=== PATIENT | female | born 1965 | race Caucasian/White ===

== ENCOUNTER → 2017-04-25 14:57 | Outpatient (CLI) | payer MEDICARE, MEDICAID, SELFPAY ==
[2017-04-25 15:54] LABS: Anion Gap 9 (5-15); BUN 9 mg/dL (7-18); BUN/Creat Ratio 13.8 RATIO (10-20); Chloride 103 mmol/L (98-107); Creatinine, Serum 0.65 mg/dL (0.55-1.02); EST Glomerular Filtration Rate 101 mL/min (>60); Est Glom Filt Rate - Afr Amer 123 mL/min (>60); Glucose 86 mg/dL (70-110); Potassium 4.2 mmol/L (3.5-5.1); Sodium Level 138 mmol/L (136-145)
== END ==
PROVIDERS: Family Provider Family Medicine; PCP Family Medicine; Visit Provider Family Medicine
DX: E87.0 Hyperosmolality and hypernatremia (principal)
CPT/HCPCS: 36415; 80048

== ENCOUNTER → 2018-03-03 09:20 | Outpatient (CLI) | payer MEDICARE, MEDICAID, SELFPAY ==
--- NOTE | 2018-03-03 | IMM_PTH ---
PATIENT: JOVANNI BENITO LOC: [facility] U#:[id number] AGE/SX: 59/F ROOM: RE03/03/[address]: Dr. Daryl Wu MD : 1965 BED: DIS: SPEC #: [id number] RECD: 03/04/18 10:16 STATUS: JOHNNA TIFFANIE #: [id number] JOSEPH: 03/03/18 00:[address]: Daryl Wu DEPT: IMMUNOHISTOCHEMISTRY RECD BY: Mildred Johnson ENTERED: 03/04/18 10:18 SP TYPE: IMMUNO OTHR DR: Dr. Zachery Ruffin MD Tissues: Lymph node of neck, NOS Procedures: CD20 (add) CD45 (add) CD5 (add) CD79A (add) CD3 (initial) PHYSICIAN & INSTITUTION [place] [id number] SPECIMEN INFORMATION: Tissue Source: Right neck lymph node, FNA Clinical Info: Right neck mass Specimen Number: [id number] CPT code: 36071, 89048 x4 METHODOLOGY: Deparaffinized sections of prefer/formalin-fixed tissue or PAP/DQ stained slides are incubated with monoclonal/polyclonal antibodies/oligonucleotide probes. Localization is made via biotin free immunoperoxidase method. Appropriate controls are performed and reacted as expected. Results on target cell population are indicated in the following table: RESULTS: ANTIBODY / CLONE RESULT CD3 (PS1) positive CD5 (SP10) positive CD20 (L26) positive CD45 (RP2/18) positive CD79a (11E3) positive These tests were developed and their performance characteristics determined by [facility]. They may not have been cleared or approved by the U.S. Food and Drug Administration. The FDA has determined that such clearance or approval is not necessary. INTERPRETATION: Right neck lymph node, FNA: Polytypic lymphoid cells. AM:jarrett 03/05/18
--- NOTE | 2018-03-03 | ASPOS_PTH ---
PATIENT: JOVANNI BENITO LOC: [facility] U#:[id number] AGE/SX: 59/F ROOM: RE03/03/[address]: Dr. Daryl Wu MD : 1965 BED: DIS: SPEC #: [id number] RECD: 03/03/18 11:58 STATUS: JOHNNA MORENO #: [id number] JOSEPH: 03/03/18 00:[address]: Daryl Wu DEPT: CYTOLOGY RECD BY: Nash Ceron ENTERED: 03/03/18 12:00 SP TYPE: ASP HERE OTHR DR: Dr. Zachery Ruffin MD Tissues: Neck, NOS Procedures: Pap Stain (control) Special Stain Group II Surgery Specimen Level IV Diff Quik Stain (control) Cell Block Cytology Other Fine Needle Asp on Site HEADER OPERATION: FNA right neck lymph node PRE-OP DIAGNOSIS: Right neck mass TISSUE SUBMITTED: FNA right neck mass, smear and fluid for cell block and cytology, flow sample DIAGNOSIS CYTOLOGY Fine needle aspiration, right neck mass ( smears and cell block): Polymorphous lymphocytes present. No evidence of lymphoproliferative disorder. COMMENT The specimen is evaluated at the time of FNA by Dr. Jacobo. Immediate Evaluation = Polymorphous lymphocytes present. Immunohistochemistry ([id number]) supports the above diagnosis. FLOW analysis of aspirate material does not reveal a lymphoproliferative disorder. Complete FLOW analysis report is viewable in patient's EMR. CYTOLOGY STUDY Slides are reviewed. CYTOLOGY GROSS Received is 0.2 ml of reddish fluid labeled with the patient's name, and designated right neck. Two imprints and one pap are made from the submitted fluid and the rest is added to CytoLyt for cell block preparation. Submitted for cytology study. / AM:jarrett 03/03/18 TC: CPT:
== END ==
PROVIDERS: Family Provider Family Medicine; PCP Family Medicine; Referring Provider Otolaryngology; Visit Provider Otolaryngology
DX: R22.1 Localized swelling, mass and lump, neck (principal)
CPT/HCPCS: 10021; 88161; 88305; 88313; 88341; 88342

== ENCOUNTER → 2018-03-04 15:10 | Outpatient (CLI) | payer MEDICARE, MEDICAID, SELFPAY ==
[2015-07-01 15:38] VITALS: BMI 19.0
--- NOTE | 2018-03-04 15:12 | CT_ITS ---
STUDY: CT SOFT TISSUE NECK WITH CONTRAST REASON FOR EXAM: Female, 52 years old. Right-sided neck mass RADIATION DOSAGE (If Supplied By Facility): CTDIvol = ( 10.63 ) mGy, DLP = ( 302.56 ) mGycm TECHNIQUE: The patient was scanned in a multi-detector CT scanner. High resolution transaxial imaging was performed following intravenous administration of 100CC ml of Isovue 300 contrast material. Sagittal and coronal images were reconstructed. Individualized dose optimization techniques were used for this CT. COMPARISON: None. FINDINGS: SUPRAHYOID HEAD AND NECK PNEUMATIC TOOL REPAIRER SPACE (INCLUDING SUPRAZYGOMATIC PORTION): Normal with no evidence of an accessory parotid lobe. No calcification in parotid duct. PARAPHARYNGEAL SPACE: Normal and symmetric. No evidence of asymmetric pterygoid plexus. RETROPHARYNGEAL SPACE: Normal with no enlarged nodes of [place] laterally CAROTID SPACE: Normal PERIVERTEBRAL SPACE: The prevertebral and paraspinal components are normal. PAROTID SPACE: Negative PHARYNGEAL MUCOSAL SPACE: The nasopharyngeal and oropharyngeal spaces including the tongue base are normal with no tonsillitis, adenoidal hypertrophy or any neoplastic processes. ORAL CAVITY : The mucosal surfaces including the anterior two thirds of the tongue and the submandibular and sublingual spaces are normal INFRAHYOID HEAD AND NECK: VISCERAL SPACE: The thyroid, trachea, esophagus, larynx and hypopharynx are normal. THE CAROTID, RETROPHARYNGEAL, PERIVERTEBRAL and POSTERIOR CERVICAL SPACES (Containing The Spinal Accessory Lymph Nodes): Normal . ORBITS AND PARANASAL SINUSES: Negative CERVICAL LYMPH NODES: There is a 1.6 x 0.6 cm right-sided level 6 lymph node located directly posterior to the sternocleidomastoid muscle. No levels 1 through 5 lymph nodes are seen. . CT/Soft Tissue Neck WITH Contrast IMPRESSION: The kings on the right neck correlates with a 1.6 x 0.6 cm right-sided level 6 lymph node. There are no abnormal masses in the various spaces in the head and neck region Electronically Signed: Ariel Wells MD at 4:33 EST Tel , Service support ,
== END ==
PROVIDERS: Family Provider Family Medicine; PCP Family Medicine; Referring Provider Otolaryngology; Visit Provider Otolaryngology
DX: R22.1 Localized swelling, mass and lump, neck (principal)
CPT/HCPCS: 70491; Q9967

== ENCOUNTER → 2018-04-02 12:16 | Outpatient (CLI) | payer MEDICARE, MEDICAID, SELFPAY ==
[2015-07-01 15:38] VITALS: BMI 19.0
== END ==
PROVIDERS: Family Provider Family Medicine; PCP Family Medicine; Referring Provider Family Medicine; Visit Provider Family Medicine
DX: Z12.11 Encounter for screening for malignant neoplasm of colon (principal)
CPT/HCPCS: 82274

== ENCOUNTER 2018-12-03 22:59 | Emergency (ER) | payer MEDICARE, MEDICAID, SELFPAY ==
[2018-12-03 23:00] VITALS: BP 120/69; PULSE 85; RESP 16; TEMP 36.7; O2SAT 98; BMI 20.8
--- NOTE | 2018-12-03 23:08 | EKG12_ITS ---
Test Reason : FLANK PAIN Blood Pressure : / mmHG Vent. Rate : 076 BPM Atrial Rate : 076 BPM P-R Int : 150 ms QRS Dur : 084 ms QT Int : 384 ms P-R-T Axes : 085 057 077 degrees QTc Int : 432 ms Normal sinus rhythm Normal ECG Confirmed by GREY SALES ([id number]), supervising film or videotape editor XU HARVEY ([id number]) on 12/07/2018 2:34:00 PM Referred By: EMMA Confirmed By:GREY SALES
--- NOTE | 2018-12-03 23:09 | ED.DCSUM_ITS ---
History of Present Illness Chief Complaint: Flank Pain Informant: Patient, Significant Other Onset: Today Context: Sudden Onset Timing: Continuous Quality: Pain with pleuritic component Location: Right breast to posterior axillary line Current Severity: Moderate Maximum Severity: Severe Worsened by: Movement and breathing Relieved by: Nothing Associated Symptoms: Shortness of breath Narrative: Patient is a 53-year-old woman with history of COPD who smokes 1 pack/day. She presents with acute onset of right-sided chest pain while sitting on her bed. She denies history of PE or DVT. She denies leg pain, swelling or discoloration. Denies history of cancer. She denies intolerance to any types of food. She believes there is a family history of cholelithiasis. She denies history of renal ureterolithiasis. She denies cough. She denies history of trauma and has not noted a rash. She denies nausea, vomiting or diarrhea. She denies dysuria, frequency, urgency or hematuria. Prior similar symptoms: No Recent Illness/Hospitalization: No - Past Medical History (1) Bicuspid aortic valve Status: Chronic (2) Chronic obstructive lung disease Status: Chronic Past Medical History - Allergies and Home Meds Allergies/Adverse Reactions: Allergies No Known Allergies Allergy (Verified 12/03/18 23:02) Primary Care Physician: Zachery Ruffin MD [Primary Care Provider] - Prior records reviewed: Yes Surgical History: ligation, broken arm left, repair while she was a kid Lives: Spouse/ Significant Other Smoking Status: Current every day smoker Alcohol: Rare Drugs: None Review of Systems General: Denies: Chills, Fever, Sweats Eyes: Denies: Visual changes - bilaterally, Diplopia ENT: Denies: Rhinorrhea, Sore throat Cardiovascular: Reports: Chest pain. Denies: Palpitations, Heart racing Respiratory: Reports: Dyspnea. Denies: Cough, Sputum, Dyspnea on exertion, Orthopnea, Paroxysmal nocturnal dyspnea, -, - Gastrointestinal: Denies: Abdominal pain, Nausea, Vomiting, Diarrhea, Melena, Hematochezia Genitourinary: Denies: Dysuria, Hematuria, Frequency Musculoskeletal: Reports: Back pain. Denies: Myalgias, Arthralgias, Neck pain, Swelling, Extremity Pain Skin: Denies: Rash, Wounds Neurological: Denies: Headache, Weakness, Numbness Hematologic: Denies: Easy bruising, Easy bleeding Allergy: Denies: Uticaria, Swelling of the mouth, Swelling of the tongue Physical Exam Vital Signs/Narrative: Vital Signs Temp Pulse Resp BP Pulse Ox 12/03/18 23:00 98.0 F 85 16 120/69 98 Inital Vital Signs reviewed: Yes General: Well nourished, Well developed, Acute Distress Head: Normocephalic, Atraumatic Eyes: Perrl, EOMI. Negative for: Pale conjunctiva, Scleral icterus ENT: Moist mucous membranes, No rhinorrhea Neck: Supple, Nontender, No lymphadenopathy, No JVD Cardiovascular: Regular rate, Regular rhythm, No murmurs, Normal S1, Normal S2 Respiratory: CTA bilaterally, Chest nontender, Decreased Air Movement - On the right side and splinting with deep breaths Abdomen: Soft, Nontender, Nondistended, Normal bowel sounds, No masses Back: Nontender, Normal Inspection Extremities: Nontender, No edema, - - There is no asymmetry, swelling, discoloration, leg vein distention, palpable cords or tenderness along the distribution of the deep venous system. Skin: Normal color, No rash, No Trauma. Negative for: Cyanosis, Diaphoresis, Jaundice Neurological: Alert, Oriented x3, Cranial nerves II-XII grossly intact, Normal Strength, Normal Sensation Psychological: Normal affect, Normal Mood Diagnostic/Tx/Re-eval Chest X-Ray - ED: 2 View, Read by ED Physician, Normal, Heart, Mediastinum, Bony Structures, No Acute Disease, Chronic Changes, - - There is no evidence of p neumothorax, effusion or findings to explain patient's symptoms. 12/03/18 23:08 Chest PA and Lateral [RAD] Stat Laboratory Results 12/03/18 12/03/18 12/03/18 23:15 23:15 23:15 WBC 12.8 H RBC 4.28 Hgb 13.3 Hct 38.4 MCV 89.7 MCH 31.1 MCHC 34.6 RDW Std Deviation 39.8 RDW Coeff of Mo 12.1 Plt Count 250 MPV 10.2 Immature Gran % (Auto) 0.300 Neut % (Auto) 63.1 Lymph % (Auto) 26.1 [place] % (Auto) 5.3 Eos % (Auto) 4.7 Baso % (Auto) 0.5 Absolute Neuts (auto) 8.1 H Absolute Lymphs (auto) 3.34 Nucleated RBC % 0 D-Dimer Quant (PE/DVT) 0.48 Sodium 142 Potassium 4.0 Chloride 110 H Carbon Dioxide 28.0 Anion Gap 4 L BUN 17 Creatinine 0.73 Estim Creat Clear Calc 70.49 Est GFR (MDRD) Af Amer 108 Est GFR (MDRD) Non-Af 89 BUN/Creatinine Ratio 23.4 H Glucose 102 Calcium 8.9 Total Bilirubin 0.30 AST 9 L ALT 15 Alkaline Phosphatase 80 Total Protein 7.5 Albumin 3.9 Globulin 3.6 Albumin/Globulin Ratio 1.1 White count is elevated. Chest x-ray reveals no evidence of pneumonia or pneum othorax. D-dimer is normal. Comprehensive metabolic panel is essentially unremarkable. Will reevaluate and determine if patient needs any other pain medicine and specifically for pleurisy. - Rhythm Strip Rhythm Strip: Sinus Rhythm Rate: 82 Ectopy: None - EKG Initial EKG Interpretation: Sinus Rhythm - Ventricular rate is 76. WI interval is 150 ms. QS duration is 84 ms. QT duration is 384 ms. [place] is normal. The EKG is normal. - Medical Decision Making With abrupt onset of pleuritic chest pain shortness of breath one needs entertained possibility of pulmonary embolus. Since she has decreased breath sounds on the right chest x-ray was obtained to evaluate for evidence of spontaneous pneumothorax. Abdomen was soft nontender with a negative Medel sign. Since there is a family history of cholelithiasis CMP was ordered to include hepatic enzymes. BUN and creatinine were obtained to assess renal function in the event that a CTA is needed. UA is nondiagnostic. There is 5-10 epithelial cells. Trace blood and leukoesterase on macro. There is 5-10 WBCs and 1+ bacteria. With patient not having urinary symptoms and complaining of chest pain suspect she has pleurisy. Since d-dimer is normal with no prior history of DVT no further work-up was indicated. ED Disposition - Plan for ED Patient: Disposition: Home or Assisted Living Diagnosis: Pleuritic chest pain Instructions: Pleurisy Prescriptions: Naproxen [Naprosyn] 500 mg PO BID #14 tab Prescription Printed Referrals: Zachery Ruffin MD [Primary Care Provider] - 3-5 Days if not improving
[2018-12-03] MEDS: Ondansetron 4 MG/2 ML Vial IV (23:18)
[2018-12-03] MEDS: Morphine 4 MG/ML Syringe IV (23:18)
[2018-12-03 23:22] LABS: Absolute Lymphocyte Count 3.34 X10^3/uL (0.83-4.51); Absolute Neutrophil Count 8.1 X10^3/uL (2.0-7.7); Basophil# 0.07 X10^3/uL; Basophil% 0.5 % (0-1); Eosinophils% 4.7 % (0-5); Hematocrit 38.4 % (37-47); Hemoglobin 13.3 g/dL (12.0-15.0); Lymphocyte # 3.34 X10^3/ul (4.0); Lymphocyte % 26.1 % (19-41); Mean Corp Hgb Conc 34.6 g/dL (32-36); Mean Corpuscular Hgb 31.1 pg (27.0-32.0); Mean Corpuscular Volume 89.7 fL (81-99); Mean Platelet Vol. 10.2 fl (6.2-12.0); Monocyte# 0.68 X10^3/uL; Monocyte% 5.3 % (0-10); NRBC Flagged by Analyzer 0 % (0-5); Neutrophil # 8.05 X10^3/uL (2.7-7.7); Neutrophil % 63.1 % (47-70); Platelet Count 250 K/mm3 (150-450); RBC Distribution Width CV 12.1 % (11.6-14.6); RBC Distribution Width SD 39.8 fl (35.1-43.9); Red Blood Count 4.28 M/mm3 (4.2-5.4); White Blood Count 12.8 K/mm3 (4.4-11.0)
[2018-12-03 23:35] LABS: D-Dimer Quantitative (DVT/PE) 0.48 FEU/ug/m (0.27-0.49)
[2018-12-03 23:36] LABS: ALB/GLOB Ratio 1.1 RATIO (0.9-2.4); AST(SGOT) 9 U/L (15-37); Alanine Aminotransfer ALT/SGPT 15 U/L (13-56); Albumin, Serum 3.9 g/dL (3.2-5.0); Alkaline Phosphatase 80 U/L (45-117); Anion Gap 4 (5-15); BUN 17 mg/dL (7-18); BUN/Creat Ratio 23.4 RATIO (10-20); Calcium,Total 8.9 mg/dL (8.5-10.1); Chloride 110 mmol/L (98-107); Creatinine, Serum 0.73 mg/dL (0.55-1.02); EST Glomerular Filtration Rate 89 mL/min (>60); Est Glom Filt Rate - Afr Amer 108 mL/min (>60); Estimated Creatinine Clearance 70.49 ml/min; Globulin 3.6 g/dL (2.2-4.2); Glucose 102 mg/dL (74-106); Protein, Total 7.5 g/dL (6.4-8.2); Sodium Level 142 mmol/L (136-145)
--- NOTE | 2018-12-03 23:38 | RAD_ITS ---
HISTORY:PT HAS BEEN COUGHING LAST COUPLE OF DAYS AND NOW SUDDENLY HAS R BREAST/FLANK PAIN. HX COPD PT HAS BEEN COUGHING LAST COUPLE OF DAYS AND NOW SUDDENLY HAS R BREAST/FLANK PAIN. HX COPD EXAM: XR Chest 2 Views: COMPARISON: None FINDINGS: # of images incl. paperwork: 2 LINES/DEVICES: None. LUNGS: Radiographically clear. No consolidation, edema or effusion. No pneumothorax. MEDIASTINUM AND CARDIOVASCULAR STRUCTURES: Cardiac silhouette not enlarged. BONES AND SOFT TISSUES: Unremarkable. RAD/Chest PA and Lateral IMPRESSION: No radiographic evidence of acute cardiopulmonary disease. at [id number] Reported and signed by: Mindi Aaron DO Electronically Signed: Mindi Aaron DO at 23:56 EDT Tel , Service support ,
[2018-12-03] MEDS: Ketorolac 15 MG/ML Vial IV (23:59)
[2018-12-04 00:11] LABS: Color, Urine Yellow (Yellow); Glucose, Dipstick Normal (Normal); Ketone-Dipstick 5 mg/dl (Negative); Leukocyte Esterase-Dipstick 100 /ul (Negative); Nitrite-Dipstick Negative (Negative); Occult Blood-Urine 10 /ul (Negative); Protein-Dipstick Negative (Negative); Specific Gravity, Urine 1.015 (1.002-1.030); Urine Bilirubin Dipstick Negative (Negative); Urine Clarity Sl. Cloudy (Clear); Urine Urobilinogen 4 mg/dl (Normal)
[2018-12-04 00:16] LABS: Bacteria 1+ /hpf (None Seen); Mucous, Urine 2+ /hpf (<or=2+)
[2018-12-04 00:17] LABS: White Blood Cells 5-10 SEEN /hpf (0-5)
[2018-12-04 00:18] LABS: Red Blood Cells-Urine 0-5 SEEN /hpf (0-5)
[2018-12-04 00:19] LABS: Squamous Epithelial Cells - UA 5-10 SEEN /hpf (5-10)
[2018-12-04 01:03] VITALS: BP 100/72; PULSE 67; RESP 18; O2SAT 96
[2018-12-04 01:23] VITALS: BP 112/68; PULSE 79; RESP 18; O2SAT 97
--- NOTE | 2018-12-04 01:24 | ED.RN ---
THIS NURSE REVIEWED D/C INSTRUCTION WITH PT. PT VERBALIZED UNDERSTANDING OF INSTRUCTIONS. IV D/C. IV CATHETER INTACT. PT TOLERATED WELL. PT DENIES FURTHER NEEDS OR QUESTIONS AT THIS TIME. PT AMBULATES FROM ROOM ON OWN WITHOUT ASSISTANCE FROM STAFF
== END 2018-12-04 01:26 | disposition home or self-care (01) ==
PROVIDERS: Emergency Provider Emergency Medicine; Family Provider Family Medicine; PCP Family Medicine
DX: R07.81 Pleurodynia (principal); J44.9 Chronic obstructive pulmonary disease, unspecified; F17.210 Nicotine dependence, cigarettes, uncomplicated
CPT/HCPCS: 71046; 80053; 81001; 85025; 85379; 93005; 96361; 96374; 96375; 99284; J7030; A4216; J2405

== ENCOUNTER 2021-08-02 15:54 | Emergency (ER) | payer MEDICARE, MEDICAID, SELFPAY ==
[2021-08-02 15:55] VITALS: BP 139/82; PULSE 102; RESP 16; TEMP 35.7; O2SAT 97; BMI 21.5
[2021-08-02 15:57] VITALS: BP 139/82; PULSE 102; RESP 16; TEMP 35.7; O2SAT 97
--- NOTE | 2021-08-02 16:28 | EDS_ITS ---
HPI History of Present Illness Chief Complaint: Nausea/Vomiting Informant: patient Narrative Narrative: 55-year-old female presenting to the emergency room with a chief complaint of nausea and vomiting. Patient states this has been present for 3 days. She notes no abdominal pain. She notes normal bowel movements. No reported fevers. No change in breathing or chronic cough. No bad food exposures or recent antibiotics. She states that she has not had any sick contacts. No rashes. [facility] Medical History (Updated 08/02/21 @ 18:[address] Jason Alonzo DO) Bicuspid aortic valve Chronic obstructive lung disease Home Medications albuterol sulfate 2.5 mg INHALATION Q4HWA.RT 07/01/15 [History Last Taken Unknown] albuterol sulfate [Ventolin Hfa (SP)] 1 - 2 puff INHALATION Q4H PRN PRN 07/01/15 [History Last Taken Unknown] tiotropium bromide [Spiriva 18 MCG] 1 puff INHALATION DAILY 07/01/15 [History Last Taken Unknown] gabapentin 300 mg PO QHS 12/03/18 [History Last Taken Unknown] naproxen 500 mg PO BID #14 tab 12/04/18 [Rx Last Taken Unknown] ondansetron 4 mg PO Q6H PRN PRN #15 tab 08/02/21 [Rx Last Taken Unknown] Allergy/AdvReac Type Severity Reaction Status Date / Time No Known Allergies Allergy Verified 08/02/21 15:57 Social History (Updated 08/02/21 @ 16:[address] Jason Alonzo DO) current gender identity: female Smoking Status: Current every day smoker ROS ROS ED Constitutional Constitutional ED: Denies chills or weight loss Eyes Eyes: Denies change in vision or diplopia ENT ENT ED: Denies ear pain, rhinorrhea or sore throat Cardiovascular Cardiovascular: Denies chest pain, orthopnea, palpitations or racing heartbeat Respiratory/Chest Respiratory/Chest: Reports cough and sputum; Denies dyspnea or orthopnea Gastrointestinal Gastrointestinal: Reports nausea and vomiting; Denies abdominal pain or diarrhea Genitourinary Genitourinary ED: Denies dysuria, hematuria or urinary frequency Musculoskeletal Musculoskeletal: Denies arthralgias or myalgias Integumentary Denies abscess or rash Neurologic Neurologic: Denies headache(s) or weakness Psychiatric Psychiatric: Denies anxiety, depression, suicidal ideation or suicidal thoughts Endocrine Endocrinology: Denies polydipsia, polyphagia or polyuria Allergic/Immunologic Allergic/Immunologic ED: Denies mouth swelling, tongue swelling or urticaria EXAM Physical Exam Const Vital Signs: 08/02/21 15:55 08/02/21 15:57 Temperature 96.3 F L 96.3 F L Temperature Source Temporal Temporal Pulse Rate 102 H 102 H Respiratory Rate 16 16 Blood Pressure 139/82 H 139/82 H Blood Pressure Mean 101 101 Pulse Ox 97 97 Oxygen Delivery Method Room Air Room Air Positive well nourished and well developed General Appearance ED: well developed HEENT Reports normocephalic, head/scalp atraumatic, TM's clear and moist mucous membranes Negative for trauma Tympanic Membrane ED: Yes TM's clear Eyes PERRL and EOMs intact bilaterally Neck no lymphadenopathy, supple and no JVD Resp normal respiratory effort and clear to auscultation bilaterally Cardio regular rate and no murmurs Rate: tachycardic GI normal to inspection, nondistended, normoactive bowel sounds and non-tender Palpation: soft Back/Spine no CVA tenderness and normal ROM Extremity normal to inspection General Extremety ED: Negative for edema General Extremity: Negative for edema Neuro oriented x3 and CN's II-XII intact bilaterally Sensorium / Orientation: alert Motor Exam: strength 5/5 throughout Psych mental status grossly normal Mood & Affect: Negative for depressed or tearful Skin no rashes or lesions noted and no wounds MDM MDM MDM Narrative Medical decision making narrative: Basic blood work was obtained. This showed a normal white blood cell count 7.5. Creatinine 0.69 with a BUN of 17. Potassium 3.1. Urinalysis was slightly concentrated. Patient received Zofran and IV fluids. Patient be discharged home with a prescription for Zofran. I think is most likely a viral illness. Lab Data Attestation: I reviewed the patient's lab results. Labs: Laboratory Results - last 24 hr 08/02/21 08/02/21 08/02/21 16:35 16:35 17:15 WBC 7.5 RBC 4.50 Hgb 13.5 Hct 40.6 MCV 90.2 MCH 30.0 MCHC 33.3 RDW Std Deviation 40.3 RDW Coeff of Mo 12.2 Plt Count 192 MPV 9.9 Immature Gran % (Auto) 0.300 Neut % (Auto) 62.2 Lymph % (Auto) 27.8 [place] % (Auto) 8.6 Eos % (Auto) 0.8 Baso % (Auto) 0.3 Absolute Neuts (auto) 4.7 Absolute Lymphs (auto) 2.09 Nucleated RBC % 0 Sodium 138 Potassium 3.1 L Chloride 108 H Carbon Dioxide 26.0 Anion Gap 4 L BUN 17 Creatinine 0.69 Estim Creat Clear Calc 72.86 Est GFR (MDRD) Af Amer 114 Est GFR (MDRD) Non-Af 94 BUN/Creatinine Ratio 24.7 H Glucose 124 H Calcium 8.7 Total Bilirubin 0.20 AST 28 ALT 28 Alkaline Phosphatase 68 Total Protein 7.2 Albumin 3.6 Globulin 3.6 Albumin/Globulin Ratio 1.0 Lipase 108 Urine Color Yellow Urine Clarity Clear Urine pH 6.0 Ur Specific [place] 1.025 Urine Protein 30 H Urine Glucose (UA) Normal Urine Ketones 5 H Urine Occult Blood 25 H Urine Nitrite Negative Urine Bilirubin Negative Urine Urobilinogen 1 H Ur Leukocyte Esterase 25 H Urine RBC 0 SEEN Urine WBC 0-5 SEEN Ur Squamous Epith Cells 0 SEEN Urine Bacteria RARE Urine Mucus 0 SEEN Discharge Plan Triage Chief Complaint: Nausea/Vomiting ED Provider: Jason Alonzo Dx/Rx/DC Orders Clinical Impression: Vomiting, Acute dehydration Instructions: ED Vomiting (Adult) Prescriptions: New ondansetron [ondansetron] 4 MG tablet 4 mg PO Q6H PRN PRN (Reason: Nausea) Qty: 15 RF: 0 No Action albuterol sulfate 2.5 MG/3 ML solution for nebulization 2.5 mg inhalation Q4HWA.RT RF: 0 albuterol sulfate [Ventolin HFA] 1 INHALER inhaler 1 - 2 puff inhalation Q4H PRN PRN (Reason: Sob &/Or Wheezing) RF: 0 tiotropium bromide [Spiriva with HandiHaler] 1 PUFF inhaler 1 puff inhalation DAILY RF: 0 gabapentin 400 MG capsule 300 mg PO QHS RF: 0 naproxen 500 MG tablet 500 mg PO BID Qty: 14 RF: 0 Primary Care Provider: Zachery Ruffin Referrals: Zachery Ruffin MD [Primary Care Provider] - As Needed Disposition Disposition: Home, Self Care
[2021-08-02] MEDS: Ondansetron 4 MG/2 ML Vial IV (16:39)
[2021-08-02] MEDS: 0.9% Normal Saline 1,000 ML 1000 ML IV (16:39)
[2021-08-02 16:46] LABS: Absolute Lymphocyte Count 2.09 X10^3/uL (0.83-4.51); Absolute Neutrophil Count 4.7 X10^3/uL (2.0-7.7); Basophil# 0.02 X10^3/uL; Basophil% 0.3 % (0-1); Eosinophil# 0.06 X10^3/uL; Eosinophils% 0.8 % (0-5); Hematocrit 40.6 % (37-47); Hemoglobin 13.5 g/dL (12.0-15.0); Lymphocyte # 2.09 X10^3/ul (0.83-4.51); Lymphocyte % 27.8 % (19-41); Mean Corp Hgb Conc 33.3 g/dL (32-36); Mean Corpuscular Volume 90.2 fL (81-99); Mean Platelet Vol. 9.9 fl (6.2-12.0); Monocyte# 0.65 X10^3/uL; Monocyte% 8.6 % (0-10); NRBC Flagged by Analyzer 0 % (0-5); Neutrophil # 4.69 X10^3/uL (2.7-7.7); Neutrophil % 62.2 % (47-70); Platelet Count 192 K/mm3 (150-450); RBC Distribution Width CV 12.2 % (11.6-14.6); RBC Distribution Width SD 40.3 fl (35.1-43.9); White Blood Count 7.5 K/mm3 (4.4-11.0)
[2021-08-02 17:05] LABS: AST(SGOT) 28 U/L (15-37); Alanine Aminotransfer ALT/SGPT 28 U/L (13-56); Albumin, Serum 3.6 g/dL (3.2-5.0); Alkaline Phosphatase 68 U/L (45-117); Anion Gap 4 (5-15); BUN 17 mg/dL (7-18); BUN/Creat Ratio 24.7 RATIO (10-20); Calcium,Total 8.7 mg/dL (8.5-10.1); Chloride 108 mmol/L (98-107); Creatinine, Serum 0.69 mg/dL (0.55-1.02); EST Glomerular Filtration Rate 94 mL/min (>60); Est Glom Filt Rate - Afr Amer 114 mL/min (>60); Estimated Creatinine Clearance 72.86 ml/min; Globulin 3.6 g/dL (2.2-4.2); Glucose 124 mg/dL (74-106); Lipase 108 U/L (73-393); Potassium 3.1 mmol/L (3.5-5.1); Protein, Total 7.2 g/dL (6.4-8.2); Sodium Level 138 mmol/L (136-145)
[2021-08-02 17:26] LABS: Mucous, Urine 0 SEEN /hpf (<or=2+); Red Blood Cells-Urine 0 SEEN /hpf (0-5); Squamous Epithelial Cells - UA 0 SEEN /hpf (5-10)
[2021-08-02 17:37] LABS: Color, Urine Yellow (Yellow); Glucose, Dipstick Normal (Normal); Ketone-Dipstick 5 mg/dl (Negative); Leukocyte Esterase-Dipstick 25 /ul (Negative); Nitrite-Dipstick Negative (Negative); Occult Blood-Urine 25 /ul (Negative); Protein-Dipstick 30 mg/dl (Negative); Specific Gravity, Urine 1.025 (1.002-1.030); Urine Bilirubin Dipstick Negative (Negative); Urine Clarity Clear (Clear); Urine Urobilinogen 1 mg/dl (Normal)
[2021-08-02 17:42] LABS: Bacteria RARE /hpf (None Seen)
[2021-08-02 17:43] LABS: White Blood Cells 0-5 SEEN /hpf (0-5)
[2021-08-02 18:33] VITALS: BP 140/76; PULSE 85; O2SAT 94
== END 2021-08-02 18:37 | disposition home or self-care (01) ==
PROVIDERS: Emergency Provider Emergency Medicine; PCP Family Medicine; Visit Provider Emergency Medicine
DX: R11.2 Nausea with vomiting, unspecified (principal); J44.9 Chronic obstructive pulmonary disease, unspecified; E86.0 Dehydration; F17.200 Nicotine dependence, unspecified, uncomplicated; Q23.1 Congenital insufficiency of aortic valve
CPT/HCPCS: 80053; 81001; 83690; 85025; 99284; J7030; A4216; J2405

== ENCOUNTER 2022-01-09 02:39 | Emergency (ER) | payer MEDICARE, MEDICAID, SELFPAY ==
[2022-01-09 02:40] VITALS: TEMP 36.6; BMI 24.0
[2022-01-09 02:44] VITALS: BP 131/92; PULSE 71; RESP 18; O2SAT 99
--- NOTE | 2022-01-09 03:06 | CT_ITS ---
STUDY: CT BRAIN WITHOUT CONTRAST REASON FOR EXAM: Female, 56 years old. head injury RADIATION DOSAGE (If Supplied By Facility): CTDIvol = ( 44.99 ) mGy, DLP = ( 779.24 ) mGycm TECHNIQUE: Transaxial CT imaging of the brain was performed without administration of intravenous contrast material. Individualized dose optimization techniques were used for this CT. COMPARISON: No relevant priors. FINDINGS: Normal soft tissue structures. Normal calvarium. Normal size ventricles and extra-axial spaces for the patient''s age. Normal white matter tracts of the cerebral hemispheres. Normal basal ganglia and thalami. Normal brainstem. Normal cerebellum. There is no intracranial hemorrhage. There are no findings of an acute ischemic infarction. Normal visualized paranasal sinuses. CT/Brain/Head without Contrast IMPRESSION: Normal unenhanced CT scan of the brain. Electronically Signed: Yvonne Whitfield MD at 4:30 EDT ,
--- NOTE | 2022-01-09 03:06 | RAD_ITS ---
STUDY: X-RAY - LUMBAR SPINE REASON FOR EXAM: Female, 56 years old. pain TECHNIQUE: 5 view(s) of the lumbar spine were obtained. COMPARISON: None FINDINGS: Normal lumbar lordosis. There is no substantial scoliosis. There is a normal alignment of the vertebrae. There is multilevel endplate spondylosis of the lumbar vertebrae. There is multi-level degenerative disc disease with multi-level disc space narrowing. The soft tissue structures are unremarkable. RAD/L/S Spine Min 4 Views IMPRESSION: Degenerative changes of the spine, as detailed above. Electronically Signed: Yvonne Whitfield MD at 4:42 EDT ,
--- NOTE | 2022-01-09 03:06 | CT_ITS ---
STUDY: CT CERVICAL SPINE WITHOUT CONTRAST REASON FOR EXAM: Female, 56 years old. neck pain RADIATION DOSAGE (If Supplied By Facility): CTDIvol = ( 13.44 ) mGy, DLP = ( 245.89 ) mGycm TECHNIQUE: High resolution transaxial imaging was performed without contrast material. Sagittal and coronal images were reconstructed. Individualized dose optimization techniques were used for this CT. COMPARISON: None FINDINGS: Normal craniovertebral junction. Normal anterior atlantoaxial articulation. Normal odontoid process. There is straightening of the normal cervical lordosis. Normal vertebral bodies and posterior osseous elements. C2-3: Normal endplates. Normal disc height and morphology. Normal central canal and intervertebral neuroforamina. C3-4, C4-5, C5-6, C6-7: Endplate spondylosis. Central and paracentral disc bulge. Degenerative changes of the bilateral facet joints and uncovertebral joints. Nfcs-sc-yavckzrs narrowing of the central canal and the bilateral intervertebral neural foramina. C7-T1: Normal endplates. Normal disc height and morphology. Normal central canal and intervertebral neuroforamina. Pleuroparenchymal scarring in the lung apices. CT/Spine Cervical without Contras IMPRESSION: Multilevel degenerative changes, as described above. Electronically Signed: Yvonne Whitfield MD at 4:38 EDT ,
--- NOTE | 2022-01-09 03:06 | RAD_ITS ---
STUDY: X-RAY - THORACIC SPINE REASON FOR EXAM: Female, 56 years old. pain TECHNIQUE: 3 view(s) of the thoracic spine were obtained. COMPARISON: None. FINDINGS: Normal kyphosis of the thoracic spine. There is no substantial scoliosis. There is multilevel endplate spondylosis of the thoracic vertebrae. There is multilevel disc space narrowing of the thoracic spine. The soft tissue structures are unremarkable. RAD/Thoracic Spine 3 Views IMPRESSION: There is multilevel endplate spondylosis of the thoracic vertebrae. There is multilevel disc space narrowing of the thoracic spine. Electronically Signed: Yvonne Whitfield MD at 4:40 EDT ,
[2022-01-09] MEDS: morphine 10 MG/ML Syringe 8 MG IM (03:16)
[2022-01-09] MEDS: Ondansetron ODT 4 MG Tablet PO (03:16)
[2022-01-09 04:28] VITALS: BP 120/73; PULSE 67; RESP 15; O2SAT 98
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
[2022-01-09 05:19] VITALS: BP 120/73; PULSE 67; RESP 15; O2SAT 98
== END 2022-01-09 05:20 | disposition home or self-care (01) ==
PROVIDERS: Emergency Provider Emergency Medicine; PCP Family Medicine; Visit Provider Emergency Medicine
DX: S16.1XXA Strain of muscle, fascia and tendon at neck level, initial encounter (principal); J44.9 Chronic obstructive pulmonary disease, unspecified; Y92.410 Unspecified street and highway as the place of occurrence of the external cause; F17.210 Nicotine dependence, cigarettes, uncomplicated; M54.9 Dorsalgia, unspecified; Q23.1 Congenital insufficiency of aortic valve; V43.62XA Car passenger injured in collision with other type car in traffic accident, initial encounter
CPT/HCPCS: 70450; 72072; 72110; 72125; 96372; 99284

== ENCOUNTER → 2022-06-04 | Outpatient (CLI) | payer MEDICARE, MEDICAID, SELFPAY ==
--- NOTE | 2022-06-04 13:49 | CT_ITS ---
STUDY: LOW DOSE CT LUNG CANCER SCREENING REASON FOR EXAM: Female, 56 years old. Lung cancer screening. Greater than 20 pack year history. Current smoker. RADIATION DOSAGE (If Supplied By Facility): CTDIvol = ( 2.01 ) mGy, DLP = ( 66.95 ) mGycm TECHNIQUE: No contrast was administered. Low dose technique was utilized (average mAS-38 and kVp 120). 1.25 mm axial source images with a slice interval of 1.25-mm were reconstructed in lung windows. 2.5 mm axial source images with a slice interval of 2.5-mm were reconstructed in lung windows. 5.0 mm axial source images with a slice interval of 5.0-mm were reconstructed in soft tissue windows. COMPARISON: Chest, December 03, 2018. CT of the chest, January 04, 2009. NODULES: Total lung nodules (excluding granulomas): 0 Emphysema: Diffuse emphysematous changes of the lungs. There is stable bilateral apical pleural scarring. Endobronchial lesion: No Aorta: Normal CORONARY ARTERIES: Coronary artery calcification is not seen. Heart: Normal Pulmonary artery: Normal Mediastinal nodes: Nonspecific subcentimeter mediastinal lymphadenopathy unchanged from the prior study. Other chest and abdominal findings: Mild degenerative changes of the thoracic spine. CT/Low Dose CT Lung Screening IMPRESSION: Lung-RADS category 1 - Continue annual screening with LDCT in 12 months. IMPORTANT NOTES FOR USE: ACR Lung-RADS Version 1.1 Assessment Categories Release Date: 2018 Category: Coded 0-4 bases on nodule(s) with highest degree of suspicion. Negative screen is defined as categories 1 and 2; a positive screen is defined as categories 3 and 4. Category 3 and 4A nodules that are unchanged on interval CT should be coded as category 2, and individuals returned to screening in 12 months. Category 4X: Category 3 or 4 nodules with additional imaging findings that increase the suspicion of lung cancer, such as spiculation, GGN that doubles in size in 1 year, enlarged lymph notes, etc. Category Modifiers: S (significant finding unrelated to lung cancer) Electronically Signed: Jaret Deleon DO at 15:06 EST Reading Location ID and State: [facility] [place] Tel [phone], Service support ,
== END | disposition home or self-care (01) ==
LOC: CT 13:39
PROVIDERS: PCP Family Medicine; Referring Provider Nurse Practitioner Family; Visit Provider Nurse Practitioner Family
DX: Z12.2 Encounter for screening for malignant neoplasm of respiratory organs (principal); Z87.891 Personal history of nicotine dependence
CPT/HCPCS: 71271

== ENCOUNTER 2022-10-04 14:00 | Outpatient (RCR) | payer MEDICARE, MEDICAID, SELFPAY ==
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
--- NOTE | 2022-12-20 09:11 | HP.PT.NRP ---
Patient Information Patient Information: JOVANNI BENITO was seen in my office for initial evaluation on 10/04/22. The following Plan of Care was established for this patient: POC Established Initial Frequency: 1x/Week Initial Duration: 2-4 Months Anticipated Interventions Patient/Client Instruction: Educate patient on: Condition, Plan of Care and Risk Factors For the Purpose of:: To improve self management Therapeutic Exercise to Include: Strength training, Endurance training, Flexibilty training and Neuromotor development For the Purpose of:: To improve muscle performance and motor function, To increase tolerance to activity/condition/position and To improve ability of physical actions for home/community/work/leisure Last Seen Last Seen: This patient was last seen in our office 10/04/22. Pertinent comments regarding their Physical therapy will appear below: This patient has not returned to Physical Therapy and is appropriate to return to MD for further follow-up as needed. At this point I will be discontinuing this patient from physical therapy. I would be happy to see this patient again in the future if found appropriate by the physician. Thank you! Bushra Wright, PT, Cert MDT
== END 2022-10-04 19:00 | disposition home or self-care (01) ==
LOC: PT 14:00
PROVIDERS: PCP Family Medicine; Referring Provider Urology; Visit Provider Urology
DX: N39.46 Mixed incontinence (principal)
CPT/HCPCS: 97162; 97530

== ENCOUNTER → 2023-06-24 | Outpatient (CLI) | payer MEDICARE, MEDICAID, SELFPAY ==
--- NOTE | 2023-06-24 12:52 | CT_ITS ---
STUDY: LOW DOSE CT LUNG CANCER SCREENING REASON FOR EXAM: Female, 57 years old. Lung cancer screening -- and gt;20 pk yr hx;current smoker;asymptomatic RADIATION DOSAGE (If Supplied By Facility): CTDIvol = ( 2.01 ) mGy, DLP = ( 70.22 ) mGycm TECHNIQUE: No contrast was administered. Low dose technique was utilized (average mAS-38 and kVp 120). 1.25 mm axial source images with a slice interval of 1.25-mm were reconstructed in lung windows. 2.5 mm axial source images with a slice interval of 2.5-mm were reconstructed in lung windows. 5.0 mm axial source images with a slice interval of 5.0-mm were reconstructed in soft tissue windows. COMPARISON: Comparison is made with prior study of June 04, 2022. NODULES: No suspicious nodules are seen. Emphysema: Hyperinflation. Emphysematous changes worse in the upper lobes. Stable scarring at both lung apices as well as in the posterior aspects of both the right and left upper lobes. Localized pleural thickening. There is also evidence of scarring in the superior segment of the right lower lobe. Endobronchial lesion: Aorta: Unremarkable CORONARY ARTERIES: Coronary artery calcification is not seen. Heart: Unremarkable Pulmonary artery: Unremarkable Mediastinal nodes: Unremarkable Other chest and abdominal findings: Small hiatal hernia. CT/Low Dose CT Lung Screening IMPRESSION: Lung-RADS category 2 - Continue annual screening with LDCT in 12 months. IMPORTANT NOTES FOR USE: ACR Lung-RADS Version 1.1 Assessment Categories Release Date: 2018 Category: Coded 0-4 bases on nodule(s) with highest degree of suspicion. Negative screen is defined as categories 1 and 2; a positive screen is defined as categories 3 and 4. Category 3 and 4A nodules that are unchanged on interval CT should be coded as category 2, and individuals returned to screening in 12 months. Category 4X: Category 3 or 4 nodules with additional imaging findings that increase the suspicion of lung cancer, such as spiculation, GGN that doubles in size in 1 year, enlarged lymph notes, etc. Category Modifiers: S (significant finding unrelated to lung cancer) Electronically Signed: Aman Salas MD at 13:22 EDT ,
== END | disposition home or self-care (01) ==
LOC: CT 12:51
PROVIDERS: PCP Family Medicine; Referring Provider Nurse Practitioner Family; Visit Provider Nurse Practitioner Family
DX: Z12.2 Encounter for screening for malignant neoplasm of respiratory organs (principal); Z87.891 Personal history of nicotine dependence
CPT/HCPCS: 71271

== ENCOUNTER 2024-02-24 13:46 | Day surgery (SDC) | payer MEDICARE, MEDICAID, SELFPAY ==
[2024-02-24] VITALS (8 sets, daily range): BP systolic 78–118; BP diastolic 59–78; PULSE 67–73; RESP 16–18; TEMP 36.1; O2SAT 99–100; BMI 21.2
--- NOTE | 2024-02-24 | ESO_PTH ---
PATIENT: JOVANNI BENITO LOC: EN U#:[id number] AGE/SX: 58/F ROOM: RE02/24/[address]: Dr. Luis Herndon DO : 1965 BED: DIS: 02/24/2024 SPEC #: [id number] RECD: 02/24/24 18:18 STATUS: JOHNNA RELeilani #: [id number] JOSEPH: 02/24/24 00:[address]: Luis Herndon DEPT: SURGICAL PATHOLOGY RECD BY: Keny Sanchez ENTERED: 02/25/24 12:16 SP TYPE: FELICITAS [facility] DR: Dr. Zachery Ruffin MD Tissues: A - Esophagus, NOS B - Small intestine biopsy C - Cecum, NOS D - Rectum, NOS Procedures: Special Stain Group I Surgery Specimen Level IV Alcian Blue/PAS (control) HEADER OPERATION: Colonoscopy, EGD with biopsy PRE-OP DIAGNOSIS: Abdominal pain TISSUE SUBMITTED: A- Distal esophagus biopsy, B- Small bowel biopsy, C- Cecal polyp, D- Rectal polyp biopsy MICROSCOPIC DIAGNOSIS A. Distal esophagus, biopsy: Gastroesophageal junctional mucosa with mild chronic inflammation. No evidence of goblet cell metaplasia. See comment. B. Small bowel, biopsy: Polypod fragments of benign duodenal/small bowel mucosa. C. Cecal polyp, biopsy: Fragments of tubular adenoma. D. Rectal polyp, biopsy: Hyperplastic polyp. . 02/27/2024 COMMENT A. Alcian blue/PAS stain with matched control supports the above diagnosis. MICROSCOPIC DESCRIPTION Slides are reviewed. GROSS DESCRIPTION A. Received in fixative is one container labeled with the patient's name and designated Distal esophagus biopsy. The specimen consists of 6two irregular fragments of light zamora soft tissue that in aggregate measure 0.6 x 0.6 x 0.1 cm. The specimen is totally submitted in one cassette. B. Received in fixative is one container labeled with the patient's name and designated Small bowel biopsy. The specimen consists of multiple irregular fragments of light zamora soft tissue that in aggregate measure 0.6 x 0.5 x 0.1 cm. The specimen is totally submitted in one cassette. C. Received in fixative is one container labeled with the patient's name and designated Cecal polyp. The specimen consists of multiple irregular fragments of light zamora soft tissue that in aggregate measure 1.0 x 0.3 x 0.1 cm. The specimen is totally submitted in one cassette. D. Received in fixative is one container labeled with the patient's name and designated Rectal polyp. The specimen consists of one irregular fragment of light zamora soft tissue that measures 0.5 x 0.5 x 0.1 cm. The specimen is totally submitted in one cassette. 02/25/2024 TC:5 CPT:41794v2
--- NOTE | 2024-02-24 14:22 | PCM.PRE.AN2 ---
ASA Classification* ASA Classification ASA Classification: 2 and 3 Assessment & Plan Anesthesia* Anesthesia Assessment Anesthesia Assessment: Discussed sedation and/or anesthesia options, risks, benefits, and alternatives with patient/parents/legal guardian/POA. Questions invited. The patient/parents/legal guardian/POA seems to understand and agrees to proceed with anesthesia plan. Reviewed the physical assessment, medical history, allergy history and patient home medications list prior to surgery/procedure/anesthetic and documented any changes. Performed airway and anesthesia risk assessments. Anesthesia Type Anesthesia Type: MAC (see written pre anesthesia record for full assessment) Anesthesia Focused Assessment* Temperature: 97.0 F Respiratory Rate: 18 Airway Assessment Mouth opens: >3 cm Mallampati Score: II Focused Labs Anesthesia Preop lab: CBC WBC 7.5 K/mm3 (4.4-11.0) 08/02/21 16:35 RBC 4.50 M/mm3 (4.2-5.4) 08/02/21 16:35 Hgb 13.5 g/dL (12.0-15.0) 08/02/21 16:35 Hct 40.6 % (37-47) 08/02/21 16:35 Plt Count 192 K/mm3 (150-450) 08/02/21 16:35 CHEMISTRY Potassium 3.1 mmol/L (3.5-5.1) L 08/02/21 16:35 Sodium 138 mmol/L (136-145) 08/02/21 16:35 BUN 17 mg/dL (7-18) 08/02/21 16:35 Creatinine 0.69 mg/dL (0.55-1.02) 08/02/21 16:35 Glucose 124 mg/dL (74-106) H 08/02/21 16:35 TSH 1.73 uIU/mL (0.358-3.74) 12/27/11 07:45 COAG Pre-Assessment Diagnosis/Proposed Procedure Planned Operative Procedure(s): EGD/CSCOPE Anesthesia History 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 When Was Last Pacemaker Check QUESTION #4 FULL TEXT: You/Your Family Experience fever (hyperthermia) with Anesthesia Last Oral Intake Last Oral intake: Last Oral Intake NPO since 11:45 02/24/24 14:05 Meds taken in AM with sips of Yes 02/24/24 14:05 water? 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 Female Yes 02/23/24 12:31 HX of Motion Sickness No 02/23/24 12:31 HX of N/V After Surgery No 02/23/24 12:31 Non-Smoker No 02/23/24 12:31 Duration of Surgery greater No 02/23/24 12:31 than 60 minutes Number of Risk Factors 1 02/23/24 12:31 PONV Score Low Risk 02/23/24 12:31 Height & Weight Height & Weight: Anesthesia: Height & Weight Height 5 ft 2 in 02/24/24 14:05 Weight: 52.6 kg 02/24/24 14:05 Body Mass Index (BMI) 21.2 02/24/24 14:05 Respiratory Assessment Respiratory Assessment - beveling and edging machine operator: Respiratory Tract Infection Hx - beveling and edging machine operator Hx Respiratory Tract Infection No 02/23/24 12:31 STOP Sleep Apnea STOP Sleep Apnea - beveling and edging machine operator: STOP Sleep Apnea - beveling and edging machine operator Hx Hypertension No 02/23/24 12:31 Hx Sleep Apnea No 02/23/24 12:31 CPAP BIPAP Do you snore loudly (louder No 02/23/24 12:31 than talking or can be heard Do you often feel tired/ Yes 02/23/24 12:31 fatigued/ sleepy during daytime? Has anyone observed you stop No 02/23/24 12:31 breathing during sleep? STOP Results Negative 02/23/24 12:31 QUESTION #5 FULL TEXT : Do you snore loudly (louder than talking or can be heard through closed doors)? 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 Specify any problems Hx of Preganancy in last 3 No 02/23/24 12:31 Months Nurse Filling Out Transfusion DSCHRIBER 02/23/24 12:31 & Questions: Date: 02/23/24 02/23/24 12:31 Time: 12:34 02/23/24 12:31 Patient unable to answer at this time (ie. 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: /Reproductive Hx- beveling and edging machine operator Hx Now No 02/23/24 12:31 Gestational Age (in weeks): EDC: Hx Hx Para Hx Section SAB No 02/23/24 12:31 PFSH Medical History (Updated 02/23/24 @ 12:42 by Monse Gavin) Wears glasses Wears dentures Post-menopausal Bladder disease Arthritis Back pain Restless legs History of IBS Smoker Asthma Shortness of breath on exertion Tobacco use disorder, continuous Encounter for screening for malignant neoplasm of lung Chronic obstructive lung disease Bicuspid aortic valve Home Medications ?Medication ?Instructions ?Recorded ?Last Taken ?Type albuterol sulfate 2.5 mg/3 mL 2.5 mg inhalation Q4HWA.RT 07/01/15 Unknown History (0.083 %) solution for nebulization albuterol sulfate 90 mcg/actuation 1 - 2 puff inhalation Q4H PRN PRN 07/01/15 Unknown History aerosol inhaler (Ventolin HFA) Sob &/Or Wheezing gabapentin 400 mg capsule 400 mg PO QHS 06/04/22 Unknown History vibegron 75 mg tablet (Gemtesa) 75 mg PO DAILY 03/26/24 11/26/24 History Allergy/AdvReac Type Severity Reaction Status Date / Time No Known Allergies Allergy Verified 02/23/24 12:30 Family History Father Heart disease Myocardial infarction Mother Heart disease Pacemaker Hypertension Sister Diabetes in 2019 Aunt Cancer Passed in 2020 Brother Hypertension Surgical History (Updated 02/23/24 @ 12:42 by Monse Gavin) Hx of lymph node excision Social History Smoking Status: Current every day smoker tobacco type: cigarettes Review of Systems (Anesthesia) ROS Narrative System reviewed and no additional complaints, except as documented.
--- NOTE | 2024-02-24 14:33 | HP.PCM_ITS ---
History and Physical Date of Admission: 02/24/24 JOVANNI BENITO, is a 58 F who presents to the office today for establishment with [facility]. Pt has a PMHx of tobacco use. She is here today for evaluation of abdominal pain. Her brother helps provide the HPI. She has been having abdominal/epigastric pain for a few years now. SHe has been seen by several providers in the ED in the past for this. She said she was given a medication for one month that did help but she unsure of what it was called. She feels the pain in constant and can cause her to be nauseous and vomit on occasion. She typically has a bm every other day and does not feel constipated SHe has never had an EGD or colonoscopy done before. She denies constipation, diarrhea, hea rtburn or melena. ROS Const Constitutional: No anorexia, fatigue, fever(s), weight change or sleep problems Eyes Eyes: No change in vision ENT ENT: No abnormal hearing, difficulty swallowing, mouth lesions, tongue swelling or throat swelling Resp Respiratory: No cough or shortness of breath Cardio Cardiology: No chest pain at rest, chest pain with exertion, shortness of breath or dyspnea on exertion Gastro GI: Positive for abdominal pain and nausea/dyspepsia; No difficulty swallowing Genitourinary-Female: No difficulty urinating or burning urination Musc Musculoskeletal: No joint pain, joint swelling, muscle weakness or decreased muscle mass Skin Skin: No hair loss in leg, yellowing of the eye, itchy eyes, rash, skin ulcer or skin swelling Neuro Neurology: No abnormal hearing, abnormal movements, confusion, unsteady gait/balance or memory loss Psych Psychiatric: No anxiety, No confusion and No memory loss Endo Endocrine: No fatigue or weight change Aller/Imm Allergy/Immunologic: No itchy eyes, throat swelling or tongue swelling Aleksandar/Lymp Hematologic/Lymphatic: No easy bleeding, easy bruising or enlarged lymph nodes Exam Const General: cooperative and comfortable Nutritional Appearance: average body habitus and well nourished HENKY Head: normal to inspection Ears: hearing grossly normal bilaterally Nose: external nose normal Face and sinus: normal facial exam Eyes General: appearance normal, both eyes and all related structures Neck Neck: normal visual inspection Chest Chest palpation & inspection: normal inspection of the chest Resp Effort & Inspection: normal respiratory effort GI Inspection: normal to inspection Auscultation: normal bowel sounds Percussion: normal to percussion Palpation: no hepatosplenomegaly Skin General: no rashes or lesions noted Neuro General: patient alert Extrem General: normal to inspection Psych Affect: normal affect Assessment and Plan Assessment and Plan (1) Abdominal symptoms: Plan: Pt is a 58 yo female here today for evaluation of upper abdominal pain. This has been going on for years now and has been seen in the ED on a few occasions. She has never had an EGD before and I discussed with her that this may be the best next step. She has never had a screening colonoscopy and she will undergo both these procedures at the same time. SHe is agreeable to this. Pending the results of the EGD we can form a treatment plan. Differential diagnoses includes GERD, gastritis, cholelithiasis, or gastric ulcer. -EGD and colonoscopy -Consider PPI therapy pending results -Consider CT abdomen pelvis or gallbladder US if scopes are inconclusive I have examined the patient and the H&P has been reviewed. There are no clinical changes since date of exam.
--- NOTE | 2024-02-24 15:56 | OP.EGD_ITS ---
Patient Name: Dina Lee Procedure Date: 02/24/2024 3:12 PM Date of : 1965 Age: 58 Procedure: Upper GI endoscopy Indications: Epigastric abdominal pain Providers: Luis Herndon DO Referring MD: Zachery Ruffin Medicines: Monitored Anesthesia Care Patient Profile: This is a 58 year old female. Refer to note in patient chart for documentation of history and physical. Patient has symptoms of chronic epigastric abdominal pain. Complications: No immediate complications. Procedure: Pre-Anesthesia Assessment: - Prior to the procedure, a History and Physical was performed, and patient medications and allergies were reviewed. The patient is competent. The risks and benefits of the procedure and the sedation options and risks were discussed with the patient. All questions were answered and informed consent was obtained. Patient identification and proposed procedure were verified by the physician in the pre-procedure area. Mental Status Examination: alert and oriented. Respiratory Examination: clear to auscultation. CV Examination: normal. Prophylactic Antibiotics: The patient does not require prophylactic antibiotics. Prior Anticoagulants: The patient has taken no anticoagulant or antiplatelet agents except for NSAID medication. ASA Grade Assessment: II - A patient with mild systemic disease. After reviewing the risks and benefits, the patient was deemed in satisfactory condition to undergo the procedure. The anesthesia plan was to use monitored anesthesia care (MAC). Immediately prior to administration of medications, the patient was re-assessed for adequacy to receive sedatives. The heart rate, respiratory rate, oxygen saturations, blood pressure, adequacy of pulmonary ventilation, and response to care were monitored throughout the procedure. The physical status of the patient was re-assessed after the procedure. After obtaining informed consent, the endoscope was passed under direct vision. Throughout the procedure, the patient's blood pressure, pulse, and oxygen saturations were monitored continuously. The pediatric colonoscope was introduced through the mouth, and advanced to the second part of duodenum. The upper GI endoscopy was accomplished without difficulty. The patient tolerated the procedure well. Scope In: 3:27:39 PM Scope Out: 3:31:04 PM Total Procedure Duration Time 0 hours 3 minutes 25 seconds Findings: The Z-line was irregular and was found 39 cm from the incisors. Biopsies were taken with a cold forceps for histology. Verification of patient identification for the specimen was done. Estimated blood loss was minimal. No gross lesions were noted in the gastric body. There was a small hiatal hernia seen. Patchy mildly erythematous mucosa without active bleeding and with no stigmata of bleeding was found in the duodenal bulb. Biopsies were taken with a cold forceps for histology. Verification of patient identification for the specimen was done. Estimated blood loss was minimal. Impression: - Z-line irregular, 39 cm from the incisors. Biopsied. - No gross lesions in the gastric body. - Erythematous duodenopathy. Biopsied. - Small hiatal hernia Recommendation: - Discharge patient to home. - Resume previous diet. - Continue present medications. - Await pathology results. Procedure Code(s): --- Professional --- 67894, Esophagogastroduodenoscopy, flexible, transoral; with biopsy, single or multiple CPT copyright 2021 [employer]. All rights reserved. The codes documented in this report are preliminary and upon chauffeur airport limousine review may be revised to meet current compliance requirements. Luis Herndon DO 02/24/2024 3:55:40 PM This report has been signed electronically. Number of Addenda: 0 Note Initiated On: 02/24/2024 3:12 PM
--- NOTE | 2024-02-24 15:56 | OP.CCLET_ITS ---
02/24/2024 Zachery Ruffin Re : Upper GI endoscopy procedure for Dina Lee Dear Laly This procedure was performed on Saturday, February 24, 2024. My impressions and recommendations are as follows: Impressions : - Z-line irregular, 39 cm from the incisors. Biopsied. - No gross lesions in the gastric body. - Erythematous duodenopathy. Biopsied. - Small hiatal hernia Recommendations : - Discharge patient to home. - Resume previous diet. - Continue present medications. - Await pathology results. My findings are described in the full procedure note, which is enclosed. If I can be of further assistance, please feel free to contact me at . Sincerely, Luis Herndon, 02/24/2024 3:55:40 PM This report has been signed electronically.
--- NOTE | 2024-02-24 16:02 | PCM.POST.ANE ---
Anesthesia: Postop Eval I Current Vital Signs Temperature: 97 F Pulse Rate: 67 Blood Pressure: 78/67 Respiratory Rate: 16 Pulse Ox: 99 Oxygen Delivery Method: Room Air Assessment Airway patent: Yes Spontaneous unlabored respirations: Yes Mental status: Awake and Calm nausea: No Vomiting: No Anesthesia Complication: No Fluid Hydration Crystalloid volume administer (ml): 60 Total IV fluid infused: 60 Progress Note Anesthesia document: Postop Eval 1 completed: Yes
--- NOTE | 2024-02-24 16:07 | OP.COLON_ITS ---
Patient Name: Dina Lee Procedure Date: 02/24/2024 3:31 PM Date of : 1965 Age: 58 Procedure: Colonoscopy Indications: This is the patient's first colonoscopy Providers: DO Samanta Krishnamurthy MD: Zachery Ruffin Medicines: Monitored Anesthesia Care Patient Profile: This is a 58 year old female. Refer to note in patient chart for documentation of history and physical. Patient has symptoms of chronic epigastric abdominal pain. Last Colonoscopy: none. The patient's first colonoscopy is today. Complications: No immediate complications. Procedure: Pre-Anesthesia Assessment: - Prior to the procedure, a History and Physical was performed, and patient medications and allergies were reviewed. The patient is competent. The risks and benefits of the procedure and the sedation options and risks were discussed with the patient. All questions were answered and informed consent was obtained. Patient identification and proposed procedure were verified by the physician in the pre-procedure area. Mental Status Examination: alert and oriented. Respiratory Examination: clear to auscultation. CV Examination: normal. Prophylactic Antibiotics: The patient does not require prophylactic antibiotics. Prior Anticoagulants: The patient has taken no anticoagulant or antiplatelet agents except for NSAID medication. ASA Grade Assessment: II - A patient with mild systemic disease. After reviewing the risks and benefits, the patient was deemed in satisfactory condition to undergo the procedure. The anesthesia plan was to use monitored anesthesia care (MAC). Immediately prior to administration of medications, the patient was re-assessed for adequacy to receive sedatives. The heart rate, respiratory rate, oxygen saturations, blood pressure, adequacy of pulmonary ventilation, and response to care were monitored throughout the procedure. The physical status of the patient was re-assessed after the procedure. After I obtained informed consent, the scope was passed under direct vision. Throughout the procedure, the patient's blood pressure, pulse, and oxygen saturations were monitored continuously. The pediatric colonoscope was introduced through the anus and advanced to the cecum, identified by appendiceal orifice and ileocecal valve. The colonoscopy was performed without difficulty. The patient tolerated the procedure well. The quality of the bowel preparation was adequate. The ileocecal valve, appendiceal orifice, and rectum were photographed. Scope In: 3:34:07 PM Scope Withdrawal Time 0 hours 9 minutes 35 seconds Scope Out: 3:49:33 PM Total Procedure Duration Time 0 hours 15 minutes 26 seconds Findings: The perianal and digital rectal examinations were normal. A 4 mm polyp was found in the rectum. The polyp was sessile. The polyp was removed with a jumbo cold forceps. Resection and retrieval were complete. Verification of patient identification for the specimen was done. Estimated blood loss was minimal. An 8 mm polyp was found in the cecum. The polyp was sessile. The polyp was removed with a cold snare. Resection and retrieval were complete. Verification of patient identification for the specimen was done. Estimated blood loss was minimal. A few small-mouthed diverticula were found in the recto-sigmoid colon and sigmoid colon. Impression: - One 4 mm polyp in the rectum, removed with a jumbo cold forceps. Resected and retrieved. - One 8 mm polyp in the cecum, removed with a cold snare. Resected and retrieved. - Diverticulosis in the recto-sigmoid colon and in the sigmoid colon. Recommendation: - Discharge patient to home. - Resume previous diet. - Continue present medications. - Await pathology results. - Repeat colonoscopy in 5 years for surveillance. - Return to GI office. Procedure Code(s): --- Professional --- 01233, Colonoscopy, flexible; with removal of tumor(s), polyp(s), or other lesion(s) by snare technique 94555, 59, Colonoscopy, flexible; with biopsy, single or multiple CPT copyright 2021 [employer]. All rights reserved. The codes documented in this report are preliminary and upon hcc coders review may be revised to meet current compliance requirements. Luis Herndon DO 02/24/2024 4:06:39 PM This report has been signed electronically. Number of Addenda: 0 Note Initiated On: 02/24/2024 3:31 PM
--- NOTE | 2024-02-24 16:07 | OP.CCLET_ITS ---
02/24/2024 Zachery Ruffin Re : Colonoscopy procedure for Dina Lee Dear Laly This procedure was performed on Saturday, February 24, 2024. My impressions and recommendations are as follows: Impressions : - One 4 mm polyp in the rectum, removed with a jumbo cold forceps. Resected and retrieved. - One 8 mm polyp in the cecum, removed with a cold snare. Resected and retrieved. - Diverticulosis in the recto-sigmoid colon and in the sigmoid colon. Recommendations : - Discharge patient to home. - Resume previous diet. - Continue present medications. - Await pathology results. - Repeat colonoscopy in 5 years for surveillance. - Return to GI office. My findings are described in the full procedure note, which is enclosed. If I can be of further assistance, please feel free to contact me at . Sincerely, Luis Herndon, 02/24/2024 4:06:39 PM This report has been signed electronically.
--- NOTE | 2024-02-24 16:25 | PCM.POSTANE2 ---
Anesthesia Postop Eval I Sum Postop Eval Completion status Anesthesia document: Postop Eval 1 completed: Yes Anesthesia Postop Eval I Summary Anesthesia Postop Eval I Summary: Anesthesia Postop Eval I: Assessment Summary Airway patent Yes 02/24/24 16:03 [email or web address] Spontaneous unlabored Yes 02/24/24 16:03 [email or web address] respirations Mental status Awake,Calm 02/24/24 16:03 [email or web address] nausea No 02/24/24 16:03 [email or web address] Vomiting No 02/24/24 16:03 [email or web address] Anesthesia Postop Eval I: Fluid Summary Crystalloid volume administer 60 02/24/24 16:03 [email or web address] (ml) Colloids volume administered ( ml) Blood Product volume administered (ml) Total IV fluid infused 60 02/24/24 16:03 [email or web address] Anesthesia Postop Eval I: Summary Notes Anesthesia Complication No 02/24/24 16:03 [email or web address] Anesthesia Complication Comment: Post-operative progress note Anesthesia: Postop Eval II Evaluation Mental status: Awake Pain Level: 0 nausea: No Vomiting: No
== END 2024-02-24 17:08 | disposition home or self-care (01) ==
LOC: EN 13:48 → AC 13:49
PROVIDERS: PCP Family Medicine; Referring Provider Family Medicine; Visit Provider Internal Medicine Gastroenterology
PROC: 0DJD8ZZ Inspection of Lower Intestinal Tract, Via Natural or Artificial Opening Endoscopic (ICD-10-PCS; CPT 45378; principal; 2024-02-24 14:40)
DX: Z12.11 Encounter for screening for malignant neoplasm of colon (principal); J44.9 Chronic obstructive pulmonary disease, unspecified; D12.0 Benign neoplasm of cecum; K62.1 Rectal polyp; K57.30 Diverticulosis of large intestine without perforation or abscess without bleeding; K31.89 Other diseases of stomach and duodenum; K44.9 Diaphragmatic hernia without obstruction or gangrene; R10.13 Epigastric pain; G89.29 Other chronic pain; N32.81 Overactive bladder; F17.210 Nicotine dependence, cigarettes, uncomplicated; Z79.899 Other long term (current) drug therapy
CPT/HCPCS: 45385; 45380; 43239; 88305; 88312; A4216; J2405

== ENCOUNTER → 2024-05-07 | Outpatient (CLI) | payer MEDICARE, MEDICAID, SELFPAY | END | disposition home or self-care (01) | PROVIDERS: PCP Family Medicine; Referring Provider Otolaryngology; Visit Provider Otolaryngology | DX: R07.0 Pain in throat (principal) | CPT/HCPCS: 87070 ==

== ENCOUNTER 2024-06-08 16:28 | Outpatient (CLI) | payer MEDICARE, MEDICAID, SELFPAY ==
[2024-06-08 20:10] LABS: Ferritin 42 ng/mL (22-378)
== END 2024-06-08 23:59 | disposition home or self-care (01) ==
PROVIDERS: PCP Family Medicine; Referring Provider Internal Medicine Pulmonary Disease; Visit Provider Internal Medicine Pulmonary Disease
DX: G25.81 Restless legs syndrome (principal); E83.19 Other disorders of iron metabolism
CPT/HCPCS: 36415; 82728

== ENCOUNTER → 2024-07-08 | Outpatient (CLI) | payer MEDICARE, MEDICAID, SELFPAY ==
--- NOTE | 2024-07-08 13:50 | CT_ITS ---
EXAM: CT Chest, Lung Cancer Screening Without Intravenous Contrast CLINICAL INDICATION: HX NICOTINE DEPENDENCE TECHNIQUE: Axial computed tomography images of the chest without intravenous contrast using low dose (LDCT) lung cancer screening protocol. This CT exam was performed using one or more of the following dose reduction techniques: automated exposure control, adjustment of the mA and/or kV according to patient size, and/or use of iterative reconstruction technique. COMPARISON: No relevant prior studies available. FINDINGS: LUNGS AND PLEURAL SPACES: Bilateral apical scarring, some of which has a nodular configuration measuring up to 9 mm. Lung emphysema/COPD. 10 mm subpleural nodule of the lateral right middle lobe. Dependent atelectasis. No pneumothorax. No significant effusion. HEART: Unremarkable. No cardiomegaly. No significant pericardial effusion. No significant coronary artery calcifications. BONES/JOINTS: Unremarkable. No acute fracture. No dislocation. SOFT TISSUES: Unremarkable. VASCULATURE: Unremarkable. No thoracic aortic aneurysm. LYMPH NODES: Unremarkable. No enlarged lymph nodes. CT/Low Dose CT Lung Screening IMPRESSION: 1. Bilateral apical scarring, some of which has a nodular configuration measur ing up to 9 mm. 2. 10 mm subpleural nodule of the lateral right middle lobe. 3. LUNG-RADS 3: Probably benign. Continue low-dose CT screening of the chest in 6 months is recommended. Reading Location: [facility]
== END | disposition home or self-care (01) ==
LOC: CT 13:47
PROVIDERS: PCP Family Medicine; Referring Provider Internal Medicine Pulmonary Disease; Visit Provider Internal Medicine Pulmonary Disease
DX: Z12.2 Encounter for screening for malignant neoplasm of respiratory organs (principal); Z87.891 Personal history of nicotine dependence
CPT/HCPCS: 71271

== ENCOUNTER → 2025-02-08 | Outpatient (CLI) | payer MEDICARE, MEDICAID, SELFPAY ==
--- NOTE | 2025-02-08 18:36 | CT_ITS ---
PROCEDURE: CHEST WITHOUT CONTRAST 02/08/2025 REASON FOR EXAM: PULM NODULE TECHNIQUE: Chest CT without contrast. Coronal and Sagittal reconstruction series were provided. One or more dose reduction techniques were used (e.g., Automated exposure control, adjustment of the mA and/or kV according to patient size, use of iterative reconstruction technique COMPARISON: 07/08/24. FINDINGS: Moderate centrilobular and paraseptal emphysematous changes are noted within the lungs, most pronounced within the apices. Scarring is also noted within the apices of both lungs. A pleural-based density along the anterior superior margin of the right middle lobe is unchanged from the previous study and likely represent scarring. These findings are unchanged from the previous study. Mild mucous plugging is noted in the right middle lobe. The unenhanced heart is normal in size. Minimal atherosclerotic calcifications. No thoracic lymphadenopathy. Mild thoracic spondylosis. CT/Chest without Contrast IMPRESSION: 1. Stable CT appearance of the chest including moderate emphysematous changes and scarring. The previously documented 10 mm subpleural nodule in the right middle lobe on the prior study likely represents the aforementioned scarring. Reading Location: [id number]
--- OUTSIDE RECORDS SUMMARY | 2025-02-08 18:37 | XMS RPT_ITS | CCD ---
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 effort, able to speak in complete sentences and symmetric chest movement Cardio Rate: regular rate GI Inspection: normal to inspection Palpation: soft and nontender General: No CVA tenderness Skin General: no rashes or lesions noted Neuro General: patient alert, patient awake, patient oriented x3 and CN's II-XI intact bilaterally Extrem General: normal to inspection Psych Appearance: grossly normal and (more content not included)... Normal [facility] No Panel InformationOrdered By: Ira Godwin on 12-17-2024 Urine Bacteria Small [facility] Urine Leukocytes Positive [facility] Urine Microscopic RBC None Seen [facility] Urine Microscopic WBC Small [facility] Urine Non-Hemolyzed Blood Negative [facility] MISA SCREENING W TOMOon 08-16 MISA SCREENING W ADAN * * *Final Report* * * DATE OF EXAM: Aug 16 2024 2:50PM [id number] - MISA SCREENING W ADAN / PROCEDURE REASON: Encounter for screening mammogram for malignant neoplasm of breast * * * * Physician Interpretation * * * * RESULT: [place] [address] [place] [id number] #[id number] - MISA SCREENING W ADAN HISTORY: 58 year-old patient seen for screening. Patient is asymptomatic in both breasts. Patient states no personal history of breast cancer. The patient has a family history of breast cancer. COMPARISON STUDIES: The present examination has been compared to prior imaging studies dated 03/17/2018 (mammogram), 05/15/2022 (mammogram) and 08/11/2023 (mammogram). MAMMOGRAM TECHNIQUE: The study was acquired using full field digital technology and interpreted from soft copy. Digital Breast Tomosynthesis (DBT) images were obtained and used to assist in the interpretation of this examination. Computer-aided detection was utilized by the radiologist in the interpretation of this examination. The patient had difficulty tolerating compression. MAMMOGRAM FINDINGS: There are scattered areas of fibroglandular density. No suspicious masses, calcifications or other abnormalities are seen in either breast. There are no significant interval changes. IMPRESSION: There is no mammographic evidence of malignancy in either breast. Routine screening mammogram is recommended. Annual mammogram will be due in 1 year. BI-RADS Category 1: Negative RISK: Based on the Tyrer-Cuzick (TC) risk assessment model, this patient has a 5.4% lifetime risk of developing breast cancer, meaning they are at average risk for developing breast cancer. However, this is only an estimate based on available history provided on the patient's questionnaire. We encourage all patients to talk with their providers about these results, further recommendations for managing breast health, and appropriate supplemental screening options if the patient has dense breast tissue. Interpreting Radiologist: Srevando Fowler M.D. FACEsthela, FS Electronically signed on: 08/17/2024 Search Engine Optimization Manager: ANNI Transcribe Date/Time: Aug 16 2024 2:27P Dictated by: SERVANDO FOWLER MD This examination was interpreted and the report reviewed and electronically signed by: SERVANDO FOWLER MD on Aug 17 2024 1:54PM EST [id number] Normal [facility] CNOVon 07-26-2024 CNOV Office Visit (FAMPWS ) DINA BENITO ([id number]) 1965 F Date Time Provider Department 07/26/24 1:20 PM [facility] During your visit today, we recorded the following information about you: Pulse Blood pressure Weight Height 67/minute 118/72 52.2 kg 1.575 m Zachery Lehman MD 07/26/2024 1:59 PM Signed Dina James Benito is a 58 year old female here for a Medicare wellness visit. Medicare Health Risk Assessment General Health "All right" Exercise: Minutes/Day no Exercise: Days/Week no Alcohol: Daily Use no Alcohol: Drinks/Day no Alcohol: 6 or more drinks no Feel off balance None. Concerns: Teeth/Dentures Is edentulous. Concerns: Sexual function declines Troubled by feelings no Frequency: Eating healthy diet Fair. ADLs requiring help none Safety precautions in home/vehicle no Smoke, vape, chews tobacco Smokes 1/2 ppd. -Discussed tobacco cessation, including risks of continued use. Offered assistance to help quit if patient desires. Difficulty hearing Has hearing aides. Difficulty seeing Wears glasses. Current Providers Specialists: I have reviewed specialist-related care of the patient in the medical record. Current care team: Patient Care Team: Zachery Lehman MD as PCP - General (Family Medicine) Rody Olsen APRN.CNP as Supervisor [employer] (Family Medicine) Za Riley APRN.CNP as Supervisor [employer] (Family Medicine) Outside specialists seen: Dr Vargas, pulmonary and Dr Godwin, uro operations manager, [facility]. Medical/Family history review Reviewed and updated problem list, medical/surgical/fami ly/social history, medications, and allergies. Opioid use review Opioid Medications (last 90 days) No data to display Anxiety/Depression screening (Lower risk for depression) (Lower risk for anxiety) Recommendation: no further intervention at this time Cognitive screening 5/5 minicog Cognitive screening reviewed and No further action needed (score 3-5). Functional Observation Was the patient's Timed Up AND Go test unsteady or >= 12 seconds? No Advance Care Planning Patient did not wish or was not able to name a surrogate decision maker or provide an advance care plan Discussed health maintenance, including regular aerobic exercise, low fat diet, and periodic exams. Reviewed immunizations and cancer screening. REVIEW OF SYSTEMS GENERAL: No weight loss, malaise or fevers HEENT: Negative for frequent or significant headaches, No changes in hearing or vision, no nose bleeds or other nasal problems RESPIRATORY: Negative for cough, hemoptysis, wheezing, COPD, dyspnea or shortness of breath CARDIOVASCULAR: Negative for chest pain, leg swelling, hypertension, CHF or palpitations GI: No nausea, vomiting, or diarrhea SKIN: Negative for lesions, rash, and itching Measurements BP 118/72 Pulse 67 Ht 157.5 cm (5' 2.01") Wt 52.2 kg (115 lb) LMP 12/10/2011 SpO2 98% BMI 21.03 kg/m? Vision Screening: Follows with optometry/ophthalmolo gy PHYSICAL EXAM: GEN: pleasant, no acute distress, alert HEENT: PERRL, EOMI, MMM NECK: supple, no lymphadenopathy, no thyromegaly HEART: regular rate, regular rhythm, no murmurs LUNGS: clear to auscultation, no wheezes or crackles, no increased WOB ABD: soft, non-distended, no masses palpated, non-tender EXT: no clubbing, no cyanosis, no edema ASSESSMENT/PLAN: 1. Medicare annual wellness visit, initial - ICD9: V70.0, ICD10: Z00.00 (primary diagnosis) - Counseled on healthy diet and regular exercise 2. Screening for depression - ICD9: V79.0, ICD10: Z13.31 - DEPRESSION SCREENING 3. Encounter for screening examination for other mental health and behavioral disorders - ICD9: V79.8, ICD10: Z13.39 - ANXIETY SCREENING 4. Encounter for screening mammogram for malignant neoplasm of breast - ICD9: V76.12, ICD10: Z12.31 - MISA SCREENING W ADAN 5. Mixed hyperlipidemia - ICD9: 272.2, ICD10: E78.2 - Controlled - Continue current medications - Counseled on healthy diet and regular exercise - COMPLETE BLOOD COUNT AND DIFFERENTIAL - COMPREHENSIVE METABOLIC PANEL - LIPID PANEL, FASTING MD Fallon Sr William J, MD 07/26/2024 1:39 PM Signed Screening schedule The following prevention plan is recommended: Hepatitis B Vaccine(1 of 3 - 19+ 3-dose series) Never done DTaP,Tdap,Td Vaccine(1 - Tdap) due on 05/05/2013 Lung Cancer Screening Never done Shingrix Vaccine(1 of 2) Never done Covid-19 Vaccine(1 - ) Never done Depression Screening due on 07/24/2024 Anxiety Screening due on 07/24/2024 Mammogram Screening due on 08/10/2024 WHAT YOU CAN DO TO PREVENT FALLS Many falls can be prevented. By making some changes, you can lower your chances of falling. Four things YOU can do to prevent falls for you* and your caregiver 1. Begin a regular exercise program Exercise is one of the mos (more content not included)... Normal [facility] Low Dose CT Lung Screeningon 07-08-[address] Lung Screening [facility] Imaging Services [address] [place] [id number] Lung Screening MR#: [id number] Acct: [id number] Name: DINA BENITO Rep #: [id number] : 1965 F 58 From: Grant Hernandez MD PCP: Dr. Zachery Lehman MD Status: REG CLI Study: Low Dose CT Lung Screening Date of Exam: 07/08 Exam# [id number] Ordering Dr: Geeta Vragas MD EXAM: CT Chest, Lung Cancer Screening Without Intravenous Contrast CLINICAL INDICATION: HX NICOTINE DEPENDENCE TECHNIQUE: Axial computed tomography images of the chest without intravenous contrast using low dose (LDCT) lung cancer screening protocol. This CT exam was performed using one or more of the following dose reduction techniques: automated exposure control, adjustment of the mA and/or kV according to patient size, and/or use of iterative reconstruction technique. COMPARISON: No relevant prior studies available. FINDINGS: LUNGS AND PLEURAL SPACES: Bilateral apical scarring, some of which has a nodular configuration measuring up to 9 mm. Lung emphysema/COPD. 10 mm subpleural nodule of the lateral right middle lobe. Dependent atelectasis. No pneumothorax. No significant effusion. HEART: Unremarkable. No cardiomegaly. No significant pericardial effusion. No significant coronary artery calcifications. BONES/JOINTS: Unremarkable. No acute fracture. No dislocation. SOFT TISSUES: Unremarkable. VASCULATURE: Unremarkable. No thoracic aortic aneurysm. LYMPH NODES: Unremarkable. No enlarged lymph nodes. CT/Low Dose CT Lung Screening IMPRESSION: 1. Bilateral apical scarring, some of which has a nodular configuration measuring up to 9 mm. 2. 10 mm subpleural nodule of the lateral right middle lobe. 3. LUNG-RADS 3: Probably benign. Continue low-dose CT screening of the chest in 6 months is recommended. Reading Location: [facility] CC: Dr. Geeta Vargas MD; Dr. Zachery Lehman MD Search Engine Optimization Manager: Signed [facility] 06-10-2024 [facility] Telephone (FAMWS) DINA BENITO ([id number]) 1965 F Date Time Provider Department 06/10/24 [facility] During your visit today, we recorded the following information about you: Melanie Lamar LPN 06/10/2024 3:[address] Vargas office calling Dr suarez to talk to James Riley, he is in the office until 5 pm. Call [phone] opt 1 please. Za Riley APRN.DIPPER OPERATOR 06/10/2024 4:57 PM Signed Called pt. Back at 4:55 when finished with ptaients. No answer. Please call back in the morning to see what is needed? Brittny Boykin LPN 06/11/2024 12:16 PM S[address] Spoke with Dr Longo and handled. Have message to give provider. Allergies As of Date: 06/10/2024 Noted Allergy Reaction REQUIP (ROPINIROLE) 04/18/2017 11 - Vomiting Date Reviewed: 05/21/2024 Reviewed by: Tenzin Chavez APRN.DIPPER OPERATOR - Fully Assessed Reason for Visit: Dr Vargas wants to talk to CLERK GENERAL [Other] Prescriptions as of 06/25/2024 - GEMTESA 75 mg tablet Take 75 mg by mouth once daily. - pantoprazole DR (PROTONIX) 40 mg tablet Take 1 tablet by mouth every afternoon. - albuterol HFA (PROVENTIL HFA, VENTOLIN HFA) 90 mcg/actuation inhaler Inhale 2 Puffs as instructed every 4 hours as needed for wheezing/shortness of breath. - albuterol (PROVENTIL) 2.5 mg /3 mL (0.083 %) nebulizer solution Use 3 mL via nebulizer every 6 hours as needed. - gabapentin (NEURONTIN) 400 mg capsule Take 1 capsule by mouth daily at bedtime for 90 days. Problem List As Of Date 06/10/2024 Noted Resolved Excessive or frequent menstruation [N92.0] 12/04/2011 Irregular menstrual cycle [N92.6] 12/04/2011 Urgency of urination [R39.15] 12/04/2011 Urge incontinence [N39.41] 12/04/2011 Dysmenorrhea [N94.6] 12/04/2011 Abdominal pain, left lower quadrant [R10.32] 12/04/2011 02/18/2018 Abdominal pain, right lower quadrant [R10.31] 12/04/2011 02/18/2018 Cervical disc disorder with radiculopathy [M50.*08/16/2015 Restless legs [G25.81] 01/20/2017 Cervical sprain, sequela [S13.9XXS] 02/05/2022 07/25/2023 Lumbar sprain [S33.5XXA] 02/05/2022 07/25/2023 Encounter Status:Closed by MELANIE LAMAR on 06/25/24 Normal [facility] Ferritinon 06-08-2024 Ferritin [Mass/Vol] 42 ng/mL Normal 22-378 [facility] Comment on above: Performed By: #### L [phone] #### [facility] [address] [place], [address] Serum or plasma ferritin zachery surement (mass/volume)Ordered By: Geeta Vargas on 06-08-2024 Ferritin [Mass/Vol] 42 ng/mL 22-378 [facility] CNOVon 05-21-2024 [facility] D[facility]EN[facility] ([id number]) 1965 F Date Time Provider Department 05/21/24 2:30 PM TENZIN CHAVEZ [facility] During your visit today, we recorded the following information about you: Temperature Pulse Respiration Blood pressure 98.7 degrees 76/minute 16/minute 104/62 Weight 54.8 kg Tenzin Chavez APRN.DIPPER OPERATOR 05/21/2024 3:17 PM Signed Subjective HPI Nontoxic-appearing 58-year-old female presents urgent care for reevaluation. States ongoing sore throat and cough. Was evaluated by me beginning of May. Placed on prednisone and doxycycline for COPD exacerbation. This did not help. Evaluated by ENT negative strep[facility] head and neck. Presents today for evaluation. Is concerned about COVID-19. States tested positive for COVID-19 her home test was negative. Denies any OTC medications. No difficulty swallowing and secretion decreased range of motion neck or trismus. No hemoptysis or productive cough. No chest pain. No fevers. Past medical history prescription medications allergies reviewed. .Patient presents with: Cough: Headache and sore throat x3 weeks PAST MEDICAL HISTORY Diagnosis Date Asthma COPD (chronic obstructive pulmonary disease) (HCC) Excessive or frequent menstruation Heavy periods Groin pain, left lower quadrant Groin pain, lower right quadrant Irregular menstrual cycle Irregular periods Restless leg PAST SURGICAL HISTORY Procedure Laterality Date ANES ESOPH THYRD LARYNX TRACH AND LYMPH NECK 1YR DILATION AND CURETTAGE DXAND/THER NONOBSTETRIC Dilation AND curettage Misc TUBAL LIGATION, 1993 ALLERGIES Requip [Ropinirole] MEDICATIONS GEMTESA 75 mg tablet Take 75 mg by mouth once daily. pantoprazole DR (PROTONIX) 40 mg tablet Take 1 tablet by mouth every afternoon. albuterol HFA (PROVENTIL HFA, VENTOLIN HFA) 90 mcg/actuation inhaler Inhale 2 Puffs as instructed every 4 hours as needed for wheezing/shortness of breath. albuterol (PROVENTIL) 2.5 mg /3 mL (0.083 %) nebulizer solution Use 3 mL via nebulizer every 6 hours as needed. gabapentin (NEURONTIN) 400 mg capsule Take 1 capsule by mouth daily at bedtime for 90 days. (Patient taking differently: Take 400 mg by mouth daily at bedtime. Uses as needed.) FAMILY HISTORY Problem Relation Age of Onset Heart Mother pacemaker Hypertension Mother Heart Father Quad bypass Diabetes Sister No Known Problems Brother COPD Brother Asthma Brother No Known Problems Brother No Known Problems Brother No Known Problems Daughter No Known Problems Son Social History Tobacco Use Smoking status: Every Day Current packs/day: 1.50 Average packs/day: 1.5 packs/day for 30.0 years (45.0 ttl pk-yrs) Types: Cigarettes Smokeless tobacco: Never Vaping Use Vaping status: Never Used Substance Use Topics Alcohol use: No Drug use: No .Patient presents with: Cough: Headache and sore throat x3 weeks PAST MEDICAL HISTORY Diagnosis Date Asthma COPD (chronic obstructive pulmonary disease) (HCC) Excessive or frequent menstruation Heavy periods Groin pain, left lower quadrant Groin pain, lower right quadrant Irregular menstrual cycle Irregular periods Restless leg PAST SURGICAL HISTORY Procedure Laterality Date ANES ESOPH THYRD LARYNX TRACH AND LYMPH NECK 1YR DILATION AND CURETTAGE DXAND/THER NONOBSTETRIC Dilation AND curettage Misc TUBAL LIGATION, 1993 ALLERGIES Requip [Ropinirole] MEDICATIONS GEMTESA 75 mg tablet Take 75 mg by mouth once daily. pantoprazole DR (PROTONIX) 40 mg tablet Take 1 tablet by mouth every afternoon. albuterol HFA (PROVENTIL HFA, VENTOLIN HFA) 90 mcg/actuation inhaler Inhale 2 Puffs as instructed every 4 hours as needed for wheezing/shortness of breath. albuterol (PROVENTIL) 2.5 mg /3 mL (0.083 %) nebulizer solution Use 3 mL via nebulizer every 6 hours as needed. gabapentin (NEURONTIN) 400 mg capsule Take 1 capsule by mouth daily at bedtime for 90 days. (Patient taking differently: Take 400 mg by mouth daily at bedtime. Uses as needed.) FAMILY HISTORY Problem Relation Age of Onset Heart Mother pacemaker Hypertension Mother Heart Father Quad bypass Diabetes Sister No Known Problems Brother COPD Brother Asthma Brother No Known Problems Brother No Known Problems Brother No Known Problems Daughter No Known Problems Son Social History Tobacco Use Smoking status: Every Day Current packs/day: 1.50 Average packs/day: 1.5 packs/day for 30.0 years (45.0 ttl pk-yrs) Types: Cigarettes Smokeless tobacco: Never Vaping Use Vaping status: Never Used Substance Use Topics Alcohol use: No Drug use: No BP 104/62 Pulse 76 Temp 37.1 ?C (98.7 ?F) Resp 16 Wt 54.8 kg (120 lb 13 oz) LMP 12/10/2011 SpO2 98% BMI 22.83 kg/m? Review of Systems (more content not included)... [facility] D[facility] BENIT[facility] ([id number]) 1965 F Date Time Provider Department 05/21/24 [facility] During your visit today, we recorded the following information about you: Laya Godoy RN 05/21/2024 12:46 PM Signed Pts brother called in and reports Pt has had a cough x2 weeks, sore throat, and difficulty swallowing food. He states she has seen ENT and went to [facility] and gotten tested for Strep twice and it came and negative both times. He states her had Covid, the old strain. The Pt took a home Covid test and it was negative. He was asking if Pt could come in and be tested for Covid. I told him she could, but if the home test came back negative she may not have it or it could be too early to be detected. I let him know Dr Lehman had appointments open. He was going to call his sister and see what she wanted to do. I told him if she came in she would need to wear a mask. Allergies As of Date: 05/21/2024 Noted Allergy Reaction REQUIP (ROPINIROLE) 04/18/2017 11 - Vomiting Date Reviewed: 05/03/2024 Reviewed by: Tenzin Chavez APRN.DIPPER OPERATOR - Fully Assessed Reason for Visit: Patient Update [1234] Appointment [186] Prescriptions as of 05/21/2024 - GEMTESA 75 mg tablet Take 75 mg by mouth once daily. - pantoprazole DR (PROTONIX) 40 mg tablet Take 1 tablet by mouth every afternoon. - albuterol HFA (PROVENTIL HFA, VENTOLIN HFA) 90 mcg/actuation inhaler Inhale 2 Puffs as instructed every 4 hours as needed for wheezing/shortness of breath. - albuterol (PROVENTIL) 2.5 mg /3 mL (0.083 %) nebulizer solution Use 3 mL via nebulizer every 6 hours as needed. - gabapentin (NEURONTIN) 400 mg capsule Take 1 capsule by mouth daily at bedtime for 90 days. Problem List As Of Date 05/21/2024 Noted Resolved Excessive or frequent menstruation [N92.0] 12/04/2011 Irregular menstrual cycle [N92.6] 12/04/2011 Urgency of urination [R39.15] 12/04/2011 Urge incontinence [N39.41] 12/04/2011 Dysmenorrhea [N94.6] 12/04/2011 Abdominal pain, left lower quadrant [R10.32] 12/04/2011 02/18/2018 Abdominal pain, right lower quadrant [R10.31] 12/04/2011 02/18/2018 Cervical disc disorder with radiculopathy [M50.*08/16/2015 Restless legs [G25.81] 01/20/2017 Cervical sprain, sequela [S13.9XXS] 02/05/2022 07/25/2023 Lumbar sprain [S33.5XXA] 02/05/2022 07/25/2023 Encounter Status:Closed by LAYA GODOY on 05/21/24 Normal [facility] XR CHEST 2V FRONTAL/LATon XR CHEST 2V FRONTAL/LAT * * *Final Report* * * DATE OF EXAM: May 21 2024 2:53PM WOX [id number] - XR CHEST 2V FRONTAL/LAT / PROCEDURE REASON: Acute cough * * * * Physician Interpretation * * * * EXAMINATION: CHEST RADIOGRAPH (2 VIEW FRONTAL and LATERAL) CLINICAL HISTORY: Acute cough MQ: XC2_6 EXAM DATE/TIME: 05/21/2024 2:53 PM COMPARISON: No relevant prior studies available. RESULT: Lines, tubes, and devices: None. Lungs and pleura: Scarring visualized in the bilateral upper lungs. Also noted is biapical scarring and subpleural opacities, likely post inflammatory. No definite consolidation. No lung mass. No pleural effusion. No pneumothorax. Cardiomediastinal silhouette: The cardiac silhouette is within normal limits. There appears be slight upward retraction of the bilateral wanda. Bones and soft tissues: Unremarkable. IMPRESSION: Findings as described above. Search Engine Optimization Manager: PSCB Transcribe Date/Time: May 21 2024 3:00P Dictated by : KELY NAGEL MD This examination was interpreted and the report reviewed and electronically signed by: KELY NAGEL MD on May 21 2024 3:02PM EST [id number] Normal [facility] XR Chest PA and Lateralon IMPRESSION: Findings as described above. Search Engine Optimization Manager: PSCB Transcribe Date/Time: May 21 2024 3:00P Dictated by : KELY NAGEL MD This examination was interpreted and the report reviewed and electronically signed by: KELY NAGEL MD on May 21 2024 3:02PM EST DIVISION OF RADIOLOGY * * *Final Report* * * DATE OF EXAM: May 21 2024 2:53PM WOX [id number] - XR CHEST 2V FRONTAL/LAT / PROCEDURE REASON: Acute cough * * * * Physician Interpretation * * * * EXAMINATION: CHEST RADIOGRAPH (2 VIEW FRONTAL & LATERAL) CLINICAL HISTORY: Acute cough MQ: XC2_6 EXAM DATE/TIME: 05/21/2024 2:53 PM COMPARISON: No relevant prior studies available. RESULT: Lines, tubes, and devices: None. Lungs and pleura: Scarring visualized in the bilateral upper lungs. Also noted is biapical scarring and subpleural opacities, likely post inflammatory. No definite consolidation. No lung mass. No pleural effusion. No pneumothorax. Cardiomediastinal silhouette: The cardiac silhouette is within normal limits. There appears be slight upward retraction of the bilateral wanda. Bones and soft tissues: Unremarkable. DIVISION OF RADIOLOGY Provider, [facility] - 05/21/2024 * * *Final Report* * * DATE OF EXAM: May 21 2024 2:53PM WOX [id number] - XR CHEST 2V FRONTAL/LAT / PROCEDURE REASON: Acute cough * * * * Physician Interpretation * * * * EXAMINATION: CHEST RADIOGRAPH (2 VIEW FRONTAL & LATERAL) CLINICAL HISTORY: Acute cough MQ: XC2_6 EXAM DATE/TIME: 05/21/2024 2:53 PM COMPARISON: No relevant prior studies available. RESULT: Lines, tubes, and devices: None. Lungs and pleura: Scarring visualized in the bilateral upper lungs. Also noted is biapical scarring and subpleural opacities, likely post inflammatory. No definite consolidation. No lung mass. No pleural effusion. No pneumothorax. Cardiomediastinal silhouette: The cardiac silhouette is within normal limits. There appears be slight upward retraction of the bilateral wanda. Bones and soft tissues: Unremarkable. IMPRESSION IMPRESSION: Findings as described above. Search Engine Optimization Manager: PSCB Transcribe Date/Time: May 21 2024 3:00P Dictated by : KELY NAGEL MD This examination was interpreted and the report reviewed and electronically signed by: KELY NAGEL MD on May 21 2024 3:02PM EST [facility] Radiology Study observation (narrative) [facility] XR Chest PA and LateralOrder ed By: [facility] Provider on 05-21-[address] [facility] [address] SOFT TISSUE NECK W/ CONTR Yolanda 05-18-2024 CT SOFT TISSUE NECK W/ CONTRAST ORIGINAL EXAMINATION: CT neck with intravenous contrast TECHNIQUE: CT of the neck was performed following the uneventful administration of 75 mL Isovue-300 intravenous contrast. Axial images were obtained through the neck with multiplanar reformats. Low dose CT acquisition technique included one of the following options: 1. Automated exposure control, 2. Adjustment of the MA and/or KV according to patient size, or 3. Use of iterative reconstruction. DICOM images are available. COMPARISON: None. HISTORY: ORDERING SYSTEM PROVIDED HISTORY: Reason for Exam: Pain in throat FINDINGS: Soft tissues: No infectious/inflammato ry process, mass, or abscess. Aerodigestive tract: No primary lesion identified within the nasopharynx, oropharynx, hypopharynx, larynx, and proximal trachea. Salivary glands: Unremarkable. Thyroid: Unremarkable. Lymph nodes : There are non-specific scattered sub-centimeter lymph nodes in the neck bilaterally. No pathologically enlarged or morphologically suspicious adenopathy. Vessels: Unremarkable. Bones: No acute osseous pathology. Visualized lung apices: Moderately severe emphysema with diffuse biapical pleuroparenchymal scarring. Visualized brain parenchyma: No acute pathology. Paranasal sinuses: Clear. Mild leftward nasal septal deviation. Mastoids: Trace fluid in the left mastoid air cells. Clear on the right. Mild circumferential thickening of the upper esophagus. Additional comments: The patient is edentulous. IMPRESSION: 1. No primary lesion identified within the nasopharynx, oropharynx, hypopharynx, larynx, or proximal trachea. 2. No pathologically enlarged or morphologically suspicious adenopathy in the neck. 3. Mild circumferential thickening of the upper esophagus. Findings may reflect reflux esophagitis. Consider direct visualization. 4. Moderately severe emphysema with diffuse biapical pleuroparenchymal scarring. 5. Trace fluid in the left mastoid air cells. Interpreted by: Geeta Dai MD Preliminary Report By: Geeta Dai MD Electronically signed By Geeta Dai MD Dictated Date: 05/18/2024 2:00:12 PM Prelim Date: 05/18/2024 2:06:53 PM Sign Date: 05/18/2024 2:06:53 PM Ordering Provider: JULIÁN DELGADILLO [facility] Culture, Throaton 05-09-2024 CUT Normal throat sis isolated. No beta-hemolytic streptococcus isolated. Normal [facility] Comment on above: Performed By: #### M 100.1000 #### [facility] [address] [place], [address] CNOVon 05-03-2024 CNOV Office Visit (UCWSTR ) DINA BENITO ([id number]) 1965 F Date Time Provider Department 05/03/24 2:15 PM TENZIN CHAVEZ [facility] During your visit today, we recorded the following information about you: Temperature Pulse Respiration Blood pressure 97.8 degrees 74/minute 18/minute 102/64 Weight 54.4 kg Tenzin Chavez, LEVEL VIAL SETTER.DIPPER OPERATOR 05/03/2024 2:26 PM Signed Subjective HPI Nontoxic-appearing 58-year-old female with history of COPD and smoking presents urgent care chief complaint cough. Duration of symptom 1 week. Associated symptoms cough sore throat headache runny nose. States cough is became productive. OTC medications none. Sick contacts similar signs symptoms. Denies any fever chest pain or hemoptysis. Past medical history prescription medications allergies reviewed. No pleuritic pain. .Patient presents with: Cough: Cough, ST and [place] x 1 week PAST MEDICAL HISTORY Diagnosis Date Asthma COPD (chronic obstructive pulmonary disease) (HCC) Excessive or frequent menstruation Heavy periods Groin pain, left lower quadrant Groin pain, lower right quadrant Irregular menstrual cycle Irregular periods Restless leg PAST SURGICAL HISTORY Procedure Laterality Date ANES ESOPH THYRD LARYNX TRACH AND LYMPH NECK 1YR DILATION AND CURETTAGE DXAND/THER NONOBSTETRIC Dilation AND curettage Misc TUBAL LIGATION, 1993 ALLERGIES Requip [Ropinirole] MEDICATIONS GEMTESA 75 mg tablet Take 75 mg by mouth once daily. pantoprazole DR (PROTONIX) 40 mg tablet Take 1 tablet by mouth every afternoon. albuterol HFA (PROVENTIL HFA, VENTOLIN HFA) 90 mcg/actuation inhaler Inhale 2 Puffs as instructed every 4 hours as needed for wheezing/shortness of breath. albuterol (PROVENTIL) 2.5 mg /3 mL (0.083 %) nebulizer solution Use 3 mL via nebulizer every 6 hours as needed. gabapentin (NEURONTIN) 400 mg capsule Take 1 capsule by mouth daily at bedtime for 90 days. (Patient taking differently: Take 400 mg by mouth daily at bedtime. Uses as needed.) FAMILY HISTORY Problem Relation Age of Onset Heart Mother pacemaker Hypertension Mother Heart Father Quad bypass Diabetes Sister No Known Problems Brother COPD Brother Asthma Brother No Known Problems Brother No Known Problems Brother No Known Problems Daughter No Known Problems Son Social History Tobacco Use Smoking status: Every Day Current packs/day: 1.50 Average packs/day: 1.5 packs/day for 30.0 years (45.0 ttl pk-yrs) Types: Cigarettes Smokeless tobacco: Never Vaping Use Vaping status: Never Used Substance Use Topics Alcohol use: No Drug use: No BP 102/64 Pulse 74 Temp 36.6 ?C (97.8 ?F) (Tympanic) Resp 18 Wt 54.4 kg (119 lb 14.9 oz) LMP 12/10/2011 SpO2 97% BMI 22.66 kg/m? Review of Systems Constitutional: Negative for chills, fever and malaise/fatigue. HENT: Positive for congestion and sore throat. Negative for ear discharge, ear pain and sinus pain. Eyes: Negative for blurred vision, pain, discharge and redness. Respiratory: Positive for cough and sputum production. Negative for hemoptysis, shortness of breath, wheezing and stridor. Cardiovascular: Negative for chest pain. Gastrointestinal: Negative for abdominal pain, diarrhea, nausea and vomiting. Musculoskeletal: Negative for myalgias. Skin: Negative for itching and rash. Neurological: Positive for headaches. Negative for dizziness. Objective Physical Exam Constitutional: General: She is not in acute distress. Appearance: She is not diaphoretic. HENT: Head: Normocephalic. Jaw: No trismus, tenderness, swelling or pain on movement. Nose: Congestion present. Mouth/Throat: Mouth: Mucous membranes are moist. Pharynx: Oropharynx is clear. Uvula midline. No pharyngeal swelling, oropharyngeal exudate, posterior oropharyngeal erythema or uvula swelling. Eyes: Conjunctiva/sclera: Conjunctivae normal. Pupils: Pupils are equal, round, and reactive to light. Cardiovascular: Rate and Rhythm: Normal rate and regular rhythm. Heart sounds: Normal heart sounds. Pulmonary: Effort: Pulmonary effort is normal. No tachypnea, accessory muscle usage or respiratory distress. Breath sounds: No stridor. Wheezing present. No rhonchi or rales. Abdominal: General: There is no distension. Palpations: Abdomen is soft. Tenderness: There is no abdominal tenderness. There is no guarding or rebound. Musculoskeletal: Cervical back: Normal range of motion and neck supple. No edema, erythema, rigidity or tenderness. No pain with movement. Normal range of motion. Lymphadenopathy: Cervical: No cervical adenopathy. Skin: General: Skin is warm and dry. Neurological: Mental Status: She is alert and oriented to person, place, and time. ASSESSMENT/PLAN: 1. Sore throat - ICD9: 462, ICD10: J02.9 (primary diagnosis) - STREP A MOLECULAR (PO (more content not included)... Normal [facility] STREP A MOLECULAR (POC)on Procedural Control Valid [facility] Strep A (POCT) Negative Negative [facility] CNPNon 03-04-2024 [facility] Telephone (YUSRAWS) DINA BENITO ([id number]) 1965 F Date Time Provider Department 03/04/24 [facility] During your visit today, we recorded the following information about you: Joon Marie RN 03/04/2024 4:56 PM Signed Patient calls to ask for a referral to pulmonology. Patient requesting referral be faxed to Dr. Vargas at [phone]. No recent referral on file. Asked patient if she was having symptoms and she said no just wanting referral for her COPD. I don't see a diagnosis of COPD on her problem list? Next appt with PCP 07/27/2023. BALJIT Odom Jacqueline A, APRN.CNP 03/04/2024 5:41 PM Signed Consult placed. Please fax as pt. requested Joon Marie RN 03/05/2024 8:57 AM Signed Consult faxed to number below. Called patient with no answer. Message left to return call. BALJIT Odom Krystle, RN 03/05/2024 9:36 AM Signed Patient returns call and message below reviewed. Patient to follow up with Dr. Vargas's office for scheduling. Joon Marie RN Allergies As of Date: 03/04/2024 Noted Allergy Reaction REQUIP (ROPINIROLE) 04/18/2017 11 - Vomiting Date Reviewed: 07/25/2023 Reviewed by: Brittny Boykin LPN - Fully Assessed Reason for Visit: Consult [502] Primary Visit Diagnosis:Chronic obstructive pulmonary disease, unspecified COPD type ([facility]) [J44.9] Order(s):CONSULT TO PULMONARY MEDICINE [6326717] Order #: [id number]: 1 Prescriptions as of 03/05/2024 - albuterol HFA (PROVENTIL HFA, VENTOLIN HFA) 90 mcg/actuation inhaler Inhale 2 Puffs as instructed every 4 hours as needed for wheezing/shortness of breath. - albuterol (PROVENTIL) 2.5 mg /3 mL (0.083 %) nebulizer solution Use 3 mL via nebulizer every 6 hours as needed. - gabapentin (NEURONTIN) 400 mg capsule Take 1 capsule by mouth daily at bedtime for 90 days. Problem List As Of Date 03/04/2024 Noted Resolved Excessive or frequent menstruation [N92.0] 12/04/2011 Irregular menstrual cycle [N92.6] 12/04/2011 Urgency of urination [R39.15] 12/04/2011 Urge incontinence [N39.41] 12/04/2011 Dysmenorrhea [N94.6] 12/04/2011 Abdominal pain, left lower quadrant [R10.32] 12/04/2011 02/18/2018 Abdominal pain, right lower quadrant [R10.31] 12/04/2011 02/18/2018 Cervical disc disorder with radiculopathy [M50.*08/16/2015 Restless legs [G25.81] 01/20/2017 Cervical sprain, sequela [S13.9XXS] 02/05/2022 07/25/2023 Lumbar sprain [S33.5XXA] 02/05/2022 07/25/2023 Encounter Status:Closed by JOON MARIE on 03/05/24 Normal [facility] Gastroenterology Visit Repor ton 03-04-2024 Gastroenterology Visit Report [facility] Gastroenterology [address] [place] [address] OFFICE VISIT Date of Service: 03/04/24 MR#: [id number] Acct: [id number] Name: DINA BENITO Rep #: [id number] : 1965 Provider: JESSIE Szymanski Age/Sex: 58/F Location: [facility] [place] Status: Signed Intake Vital Signs 02/24/24 14:05 03/03/24 10:55 Height 5 ft 2 in 5 ft 2 in Intake Visit Reasons: Test Result Chief Complaint: abdominal pain Allergies No Known Allergies Allergy (Verified 02/23/24 12:30) Nurse's Note: OV03.04.24 Pt here for f/u. Pt reports epigastric discomfort, nausea, constipation, and diarrhea. Denies bloody stools. Denies vomiting. [facility] Medical History (Updated 03/04/24 @ 16:12 by JESSIE Szymanski) Wears glasses Wears dentures Post-menopausal Bladder disease Arthritis Back pain Restless legs History of IBS Smoker Asthma Shortness of breath on exertion Tobacco use disorder, continuous Encounter for screening for malignant neoplasm of lung Chronic obstructive lung disease Bicuspid aortic valve Surgical History (Updated 02/23/24 @ 12:42 by Monse Gavin) Hx of lymph node excision Family History Father Heart disease Myocardial infarction Mother Heart disease Pacemaker Hypertension Sister Diabetes in 2019 Aunt Cancer Passed in 2020 Brother Hypertension Social History Smoking Status: Current every day smoker tobacco type: cigarettes HPI HPI Chief Complaint: abdominal pain Details: DINA BENITO, is a 58 F who presents to the office today for f/u. BGI established with abdominal epigastric pain for years. Had been seen in the ED before with no etiology identified EGD 02.24.24; - Z-line irregular, 39 cm from the incisors. Biopsied. - No gross lesions in the gastric body. - Erythematous duodenopathy. Biopsied. - Small hiatal hernia Colonoscopy 02.24.24 One 4 mm polyp in the rectum, removed with a jumbo cold forceps. Resected and retrieved. - One 8 mm polyp in the cecum, removed with a cold snare. Resected and retrieved. - Diverticulosis in the recto-sigmoid colon and in the sigmoid colon. OV 03.04.24 Pt is here today to review results of her scopes. She continues with abdominal pain. Her is here today and tells me he thinks it may be related to her chronic cough from COPD. She does currenttly smoke and is aware she needs to stop. Pt has not been on PPI therapy at all. ROS Const Constitutional: No fatigue, fever(s) or weight change ENT ENT: Positive for difficulty swallowing Gastro GI: Positive for abdominal pain, bloating, change in bowel habits, constipation, difficulty swallowing and excessive flatus; No belching, change in stool character, coffee ground emesis, cramping, diarrhea, heartburn, feeling full early, incontinent of stools, Vomiting blood/hematemesis, Blood in stool, loose stools, Black,tarry stools, nausea/dyspepsia, pain with swallowing, vomiting or other Musc Musculoskeletal: Positive for Arthritis, restless legs and leg pain at night; No joint pain Skin Skin: No yellowing of the eye or itchy eyes Neuro Neurology: Positive for restless legs Psych Psychiatric: No anxiety and No depression Endo Endocrine: No fatigue or weight change Aller/Imm Allergy/Immunologic: No itchy eyes Aleksandar/Lymp Hematologic/Lymphatic : No easy bleeding or easy bruising Exam Const General: cooperative and comfortable Nutritional Appearance: average body habitus and well nourished HENMT Head: normal to inspection Ears: hearing grossly normal bilaterally Nose: external nose normal Face and sinus: normal facial exam Eyes General: appearance normal, both eyes and all related structures Neck Neck: normal visual inspection Chest Chest palpation inspection: normal inspection of the chest Resp Effort Inspection: normal respiratory effort Cardio Palpation: normal PMI Rate: regular rate Rhythm: regular rhythm GI Inspection: normal to inspection Auscultation: normal bowel sounds Percussion: normal to percussion Palpation: no hepatosplenomegaly Skin General: no rashes or lesions noted Neuro General: patient alert Extrem General: normal to inspection Psych Affect: normal affect Assessment and Plan Assessment and Plan (1) Epigastric pain: Status: Acute Plan: This is a 58 yo female pt here today for f/u after endoscopy. I reviewed results of her scopes with her and answered all questions. Pt has a chronic cough and feels her pain may be muscular in nature. She did have some erythema in her duodenum. She will start PPI therapy daily to help heal any inflammation that could be the etiology of her pain. colonoscopy with pre cancer (more content not included)... Normal [facility] Colonoscopy Reporton 024 Colonoscopy Report [facility] Medical Records Department [address] [place] [address] Colonoscopy Report MR#: [id number] Acct: [id number] Name: DINA BENITO Rep #: [id number] : 1965 58 From: Luis Herndon DO PCP: Dr. Zachery Lehman MD Status:[facility] Patient Name: Dina Benito Procedure Date: 02/24/2024 3:31 PM Date of : 1965 Age: 58 Procedure: Colonoscopy Indications: This is the patient's first colonoscopy Providers: Luis Herndon DO Referring MD: Zachery Lehman Medicines: Monitored Anesthesia Care Patient Profile: This is a 58 year old female. Refer to note in patient chart for documentation of history and physical. Patient has symptoms of chronic epigastric abdominal pain. Last Colonoscopy: none. The patient's first colonoscopy is today. Complications: No immediate complications. Procedure: Pre-Anesthesia Assessment: - Prior to the procedure, a History and Physical was performed, and patient medications and allergies were reviewed. The patient is competent. The risks and benefits of the procedure and the sedation options and risks were discussed with the patient. All questions were answered and informed consent was obtained. Patient identification and proposed procedure were verified by the physician in the pre-procedure area. Mental Status Examination: alert and oriented. Respiratory Examination: clear to auscultation. CV Examination: normal. Prophylactic Antibiotics: The patient does not require prophylactic antibiotics. Prior Anticoagulants: The patient has taken no anticoagulant or antiplatelet agents except for NSAID medication. ASA Grade Assessment: II - A patient with mild systemic disease. After reviewing the risks and benefits, the patient was deemed in satisfactory condition to undergo the procedure. The anesthesia plan was to use monitored anesthesia care (MAC). Immediately prior to administration of medications, the patient was re-assessed for adequacy to receive sedatives. The heart rate, respiratory rate, oxygen saturations, blood pressure, adequacy of pulmonary ventilation, and response to care were monitored throughout the procedure. The physical status of the patient was re-assessed after the procedure. After I obtained informed consent, the scope was passed under direct vision. Throughout the procedure, the patient's blood pressure, pulse, and oxygen saturations were monitored continuously. The pediatric colonoscope was introduced through the anus and advanced to the cecum, identified by appendiceal orifice and ileocecal valve. The colonoscopy was performed without difficulty. The patient tolerated the procedure well. The quality of the bowel preparation was adequate. The ileocecal valve, appendiceal orifice, and rectum were photographed. Scope In: 3:34:07 PM Scope Withdrawal Time 0 hours 9 minutes 35 seconds Scope Out: 3:49:33 PM Total Procedure Duration Time 0 hours 15 minutes 26 seconds Findings: The perianal and digital rectal examinations were normal. A 4 mm polyp was found in the rectum. The polyp was sessile. The polyp was removed with a jumbo cold forceps. Resection and retrieval were complete. Verification of patient identification for the specimen was done. Estimated blood loss was minimal. An 8 mm polyp was found in the cecum. The polyp was sessile. The polyp was removed with a cold snare. Resection and retrieval were complete. Verification of patient identification for the specimen was done. Estimated blood loss was minimal. A few small-mouthed diverticula were found in the recto-sigmoid colon and sigmoid colon. Impression: - One 4 mm polyp in the rectum, removed with a jumbo cold forceps. Resected and retrieved. - One 8 mm polyp in the cecum, removed with a cold snare. Resected and retrieved. - Diverticulosis in the recto-sigmoid colon and in the sigmoid colon. Recommendation: - Discharge patient to home. - Resume previous diet. - Continue present medications. - Await pathology results. - Repeat colonoscopy in 5 years for surveillance. - Return to GI office. Procedure Code(s): --- Professional --- 09202, Colonoscopy, flexible; with removal of tumor(s), polyp(s), or other lesion(s) by snare technique 07869, 59, Colonoscopy, flexible; with biopsy, single or multiple CPT copyright 2021 [employer]. All rights reserved. The codes documented in this report are preliminary and upon project surveyor review may be revised to meet current compliance requirements. Luis Herndon DO 02/24/2024 4:06:39 PM This report has been signed electronically. Number of Addenda: 0 Note Initiated On: 02/24/2024 3:31 PM 02/24/24 1606 Date Luis Herndon DO Cosigner Signature: Date (more content not included)... Normal [facility] EGD Reporton 02-24-2024 EGD Report [facility] Medical Records Department [address] [place] [address] EGD Report MR#: [id number] Acct: [id number] Name: DINA BENITO Rep #: [id number] : 1965 58 From: Luis Herndon DO PCP: Dr. Zachery Lehman MD Status:[facility] Patient Name: Dina Benito Procedure Date: 02/24/2024 3:12 PM Date of : 1965 Age: 58 Procedure: Upper GI endoscopy Indications: Epigastric abdominal pain Providers: Luis Herndon DO Referring MD: Zachery Lehman Medicines: Monitored Anesthesia Care Patient Profile: This is a 58 year old female. Refer to note in patient chart for documentation of history and physical. Patient has symptoms of chronic epigastric abdominal pain. Complications: No immediate complications. Procedure: Pre-Anesthesia Assessment: - Prior to the procedure, a History and Physical was performed, and patient medications and allergies were reviewed. The patient is competent. The risks and benefits of the procedure and the sedation options and risks were discussed with the patient. All questions were answered and informed consent was obtained. Patient identification and proposed procedure were verified by the physician in the pre-procedure area. Mental Status Examination: alert and oriented. Respiratory Examination: clear to auscultation. CV Examination: normal. Prophylactic Antibiotics: The patient does not require prophylactic antibiotics. Prior Anticoagulants: The patient has taken no anticoagulant or antiplatelet agents except for NSAID medication. ASA Grade Assessment: II - A patient with mild systemic disease. After reviewing the risks and benefits, the patient was deemed in satisfactory condition to undergo the procedure. The anesthesia plan was to use monitored anesthesia care (MAC). Immediately prior to administration of medications, the patient was re-assessed for adequacy to receive sedatives. The heart rate, respiratory rate, oxygen saturations, blood pressure, adequacy of pulmonary ventilation, and response to care were monitored throughout the procedure. The physical status of the patient was re-assessed after the procedure. After obtaining informed consent, the endoscope was passed under direct vision. Throughout the procedure, the patient's blood pressure, pulse, and oxygen saturations were monitored continuously. The pediatric colonoscope was introduced through the mouth, and advanced to the second part of duodenum. The upper GI endoscopy was accomplished without difficulty. The patient tolerated the procedure well. Scope In: 3:27:39 PM Scope Out: 3:31:04 PM Total Procedure Duration Time 0 hours 3 minutes 25 seconds Findings: The Z-line was irregular and was found 39 cm from the incisors. Biopsies were taken with a cold forceps for histology. Verification of patient identification for the specimen was done. Estimated blood loss was minimal. No gross lesions were noted in the gastric body. There was a small hiatal hernia seen. Patchy mildly erythematous mucosa without active bleeding and with no stigmata of bleeding was found in the duodenal bulb. Biopsies were taken with a cold forceps for histology. Verification of patient identification for the specimen was done. Estimated blood loss was minimal. Impression: - Z-line irregular, 39 cm from the incisors. Biopsied. - No gross lesions in the gastric body. - Erythematous duodenopathy. Biopsied. - Small hiatal hernia Recommendation: - Discharge patient to home. - Resume previous diet. - Continue present medications. - Await pathology results. Procedure Code(s): --- Professional --- 06175, Esophagogastroduodeno scopy, flexible, transoral; with biopsy, single or multiple CPT copyright 2021 [employer]. All rights reserved. The codes documented in this report are preliminary and upon project surveyor review may be revised to meet current compliance requirements. Luis Herndon DO 02/24/2024 3:55:40 PM This report has been signed electronically. Number of Addenda: 0 Note Initiated On: 02/24/2024 3:12 PM 02/24/24 1555 Date Luis Herndon DO Cosigner Signature: Date (if indicated) CC: Dr. Zachery Lehman MD; Luis Herndon DO Date Dictated: 02/24/24 1512 Date Transcribed: Search Engine Optimization Manager: MISBAH Signed [facility] MR/POSTOP.MELVIN 02-24-2024 MR/POSTOP.[facility] Medical Records Department [address] [place] [address] Anesthesia Postop Eval I 02/24/24 1602 MR#: [id number] Acct: [id number] Name: DINA BENITO Rep #: [id number] : 1965 58 From: Quentin Pennington PCP: Dr. Zachery Lehman MD Status:REG SDC Y Race: C Location: [place] [address] Anesthesia: Postop Eval I Current Vital Signs Temperature: 97 F Pulse Rate: 67 Blood Pressure: 78/67 Respiratory Rate: 16 Pulse Ox: 99 Oxygen Delivery Method: Room Air Assessment Airway patent: Yes Spontaneous unlabored respirations: Yes Mental status: Awake and Calm nausea: No Vomiting: No Anesthesia Complication: No Fluid Hydration Crystalloid volume administer (ml): 60 Total IV fluid infused: 60 Progress Note Anesthesia document: Postop Eval 1 completed: Yes 02/24/24 1603 Date Quentin Rome Signature: Date CC: Signed Normal [facility] MR/[id number] 02-24-2024 [facility] Medical Records Department [address] [place] [address] Anesthesia Postop Eval II 02/24/24 1625 MR#: [id number] Acct: [id number] Name: DINA BENITO Rep #: [id number] : 1965 58 From: Raulito Perez MD PCP: Dr. Zachery Lehman MD Status:REG SDC Y Race: C Location: [place] [address] Anesthesia Postop Eval I Sum Postop Eval Completion status Anesthesia document: Postop Eval 1 completed: Yes Anesthesia Postop Eval I Summary Anesthesia Postop Eval I Summary: Anesthesia Postop Eval I: Assessment Summary Airway patent Yes 02/24/24 16:03 [email or web address] Spontaneous unlabored Yes 02/24/24 16:03 [email or web address] respirations Mental status Awake,Calm 02/24/24 16:03 [email or web address] nausea No 02/24/24 16:03 [email or web address] Vomiting No 02/24/24 16:03 [email or web address] Anesthesia Postop Eval I: Fluid Summary Crystalloid volume administer 60 02/24/24 16:03 [email or web address] (ml) Colloids volume administered ( ml) Blood Product volume administered (ml) Total IV fluid infused 60 02/24/24 16:03 [email or web address] Anesthesia Postop Eval I: Summary Notes Anesthesia Complication No 02/24/24 16:03 [email or web address] Anesthesia Complication Comment: Post-operative progress note Anesthesia: Postop Eval II Evaluation Mental status: Awake Pain Level: 0 nausea: No Vomiting: No 02/24/24 1625 Date Raulito Rome Signature: CC: Signed Normal [facility] Special Stain Group Ion 01-30 Special Stain Group I --- -------- Patient Age/Sex Location Account Attending Physician -------- DINA BENITO 58/F EN [id number] Luis Herndon DO -------- Specimen: [id number] Received: 02/24/24 Status: JOHNNA Wade Num: [id number] Spec Type: FELICITAS Castellanos Dr: Luis Herndon DO HEADER OPERATION: Colonoscopy, EGD with biopsy PRE-OP DIAGNOSIS: Abdominal pain TISSUE SUBMITTED: A- Distal esophagus biopsy, B- Small bowel biopsy, C- Cecal polyp, D- Rectal polyp biopsy -------- MICROSCOPIC DIAGNOSIS A. Distal esophagus, biopsy: Gastroesophageal junctional mucosa with mild chronic inflammation. No evidence of goblet cell metaplasia. See comment. B. Small bowel, biopsy: Polypod fragments of benign duodenal/small bowel mucosa. C. Cecal polyp, biopsy: Fragments of tubular adenoma. D. Rectal polyp, biopsy: Hyperplastic polyp. AM. 02/27/2024 COMMENT A. Alcian blue/PAS stain with matched control supports the above diagnosis. MICROSCOPIC DESCRIPTION Slides are reviewed. GROSS DESCRIPTION A. Received in fixative is one container labeled with the patient's name and designated Distal esophagus biopsy." The specimen consists of 6two irregular fragments of light zamora soft tissue that in aggregate measure 0.6 x 0.6 x 0.1 cm. The specimen is totally submitted in one cassette. B. Received in fixative is one container labeled with the patient's name and designated Small bowel biopsy. The specimen consists of multiple irregular fragments of light zamora soft tissue that in aggregate measure 0.6 x 0.5 x 0.1 cm. The specimen is totally submitted in one cassette. C. Received in fixative is one container labeled with the patient's name and designated "Cecal polyp." The specimen consists of multiple irregular fragments of light zamora soft tissue that in aggregate measure 1.0 x 0.3 x 0.1 cm. The specimen is totally submitted in one cassette. D. Received in fixative is one container labeled with the patient's name and designated "Rectal polyp." The specimen consists of one irregular fragment of light zamora soft tissue -------- Patient Age/Sex Location Account Attending Physician -------- DINA BENITO 58/F EN [id number] Luis Herndon DO -------- that measures 0.5 x 0.5 x 0.1 cm. The specimen is totally submitted in one cassette. 02/25/2024 TC:5 CPT:55044u0 -------- Patient Age/Sex Location Account Attending Physician -------- JESUS,DINA J 58/F EN [id number] Luis Friend, DO -------- Signed (signature on file) Dr. Cecil Jacobo, DO 02/27/24 1220 -------- Normal [facility] Comment on above: Performed By: #### P SSI #### [facility] [address] [place], [address] .Auto Diffon 12-05-2023 Basophil, Absolute 0.1 10 3/mcL Normal 0.0-0.2 [facility] Comment on above: Performed By: #### L IP, GFR, ADIFF, ANEU, CBC, CMP, DORI, MDW #### [address] [address] Basophils/100 WBC (Bld) 0.8 % Normal 0.0-2.5 [facility] Comment on above: Performed By: #### L IP, GFR, ADIFF, ANEU, CBC, CMP, DORI, MDW #### [address] [address] Eosinophil, Absolute 0.3 10 3/mcL Normal 0.0-0.[address] [facility] Comment on above: Performed By: #### L IP, GFR, ADIFF, ANEU, CBC, CMP, TROPHS, MDW #### [address] [address] Eosinophils/100 WBC (Bld) 3.9 % Normal 0.0-7.0 [facility] Comment on above: Performed By: #### L IP, GFR, ADIFF, ANEU, CBC, CMP, TROPHS, MDW #### [address] [address] Lymphocyte, Absolute 2.3 10 3/mcL Normal 0.8-3.[address] [facility] Comment on above: Performed By: #### L IP, GFR, ADIFF, ANEU, CBC, CMP, TROPHS, MDW #### [address] [address] Lymphocytes/100 WBC (Bld) 26.1 % Normal 10.0-50.0 [facility] Comment on above: Performed By: #### L IP, GFR, ADIFF, ANEU, CBC, CMP, TROPHS, MDW #### [address] [address] Monocyte, Absolute 0.6 10 3/mcL Normal 0.2-1.0 [facility] Comment on above: Performed By: #### L IP, GFR, ADIFF, ANEU, CBC, CMP, TROPHS, MDW #### [address] [address] Monocytes/100 WBC (Bld) 6.9 % Normal 1.7-13.0 [facility] Comment on above: Performed By: #### L IP, GFR, ADIFF, ANEU, CBC, CMP, TROPHS, MDW #### [address] [address] Neutrophils/100 WBC (Bld) 62.3 % Normal 37.0-80.0 [facility] Comment on above: Performed By: #### L IP, GFR, ADIFF, ANEU, CBC, CMP, TROPHS, MDW #### [address] [address] .GFRon 12-05-2023 GFR 89 ml/min/1.73sqm Normal [facility] Comment on above: Result Comment: GFR Population mean for , Non- Americans Ages 20-29 = 116 mL/min/1.73 sq.m. Ages 30-39 = 107 mL/min/1.73 sq.m. Ages 40-49 = 99 mL/min/1.73 sq.m. Ages 50-59 = 93 mL/min/1.73 sq.m. Ages 60-69 = 85 mL/min/1.73 sq.m. Ages 70+ = 75 mL/min/1.73 sq.m. Chronic Kidney Disease: Less than 60 mL/min/1.73 square meters End Stage Renal Disease: Less than 15 mL/min/1.73 square meters Performed By: #### L IP, GFR, ADIFF, ANEU, CBC, CMP, TROPHS, DENNIS #### [address] [address] GFR Non- 74 ml/min/1.73sqm Normal [facility] Comment on above: Result Comment: GFR Population mean for , Non- Americans Ages 20-29 = 116 mL/min/1.73 sq.m. Ages 30-39 = 107 mL/min/1.73 sq.m. Ages 40-49 = 99 mL/min/1.73 sq.m. Ages 50-59 = 93 mL/min/1.73 sq.m. Ages 60-69 = 85 mL/min/1.73 sq.m. Ages 70+ = 75 mL/min/1.73 sq.m. Chronic Kidney Disease: Less than 60 mL/min/1.73 square meters End Stage Renal Disease: Less than 15 mL/min/1.73 square meters Performed By: #### L IP, GFR, ADIFF, ANEU, CBC, CMP, TROPHS, DENNIS #### [address] [address] .MDWon 12-05-2023 Monocyte Distribution Width 19.72 Normal 0.00-20.00 [facility] Comment on above: Result Comment: For ED adult patients suspected of sepsis, MDW<=20.0 does not rule out sepsis or risk of sepsis Performed By: #### L IP, GFR, ADIFF, ANEU, CBC, CMP, DENNIS MEADOWS #### [place] [address] .NEUABSon 12-05-2023 Neutrophil, Absolute 5.4 10 3/mcL Normal 2.9-6.[address] [facility] Comment on above: Performed By: #### L IP, GFR, ADIFF, ANEU, CBC, CMP, DENNIS MEADOWS #### [place] [address] CBCon 12-05-2023 Erythrocyte distribution width (RBC) [Ratio] 12.7 % Normal 11.5-14.5 [facility] Comment on above: Performed By: #### L IP, GFR, ADIFF, ANEU, CBC, CMP, DENNIS MEADOWS #### [place] [address] Hematocrit (Bld) [Volume fraction] 37.9 % Normal 37.0-47.0 [facility] Comment on above: Performed By: #### L IP, GFR, ADIFF, ANEU, CBC, DORI DUQUE MDW #### [place] [address] Hgb 12.7 G/dL Normal 12.0-16.0 [facility] Comment on above: Performed By: #### L IP, GFR, ADIFF, ANEU, CBC, DORI DUQUE MDW #### [place] [address] MCH (RBC) [Entitic mass] 30.7 pg Normal 27.0-31.2 [facility] Comment on above: Performed By: #### L IP, GFR, ADIFF, ANEU, CBC, DORI DUQUE MDW #### [place] [address] MCHC 33.6 G/dL Normal 33.0-37.0 [facility] Comment on above: Performed By: #### L IP, GFR, ADIFF, ANEU, CBC, CMP, DENNIS MEADOWS #### [address] [address] MCV (RBC) [Entitic vol] 91.5 fL Normal 80.0-94.0 [facility] Comment on above: Performed By: #### L IP, GFR, ADIFF, ANEU, CBC, CMP, DENNIS MEADOWS #### [address] [address] Platelet 228 10 3/mcL Normal 130-400 [facility] Comment on above: Performed By: #### L IP, GFR, ADIFF, ANEU, CBC, CMP, DENNIS MEADOWS #### [address] [address] Platelet mean volume (Bld) [Entitic vol] 8.5 fL Normal 7.4-10.4 [facility] Comment on above: Performed By: #### L IP, GFR, ADIFF, ANEU, CBC, CMP, DENNIS MEADOWS #### [address] [address] RBC 4.15 10 6/mcL Low 4.20-5.40 [facility] Comment on above: Performed By: #### L IP, GFR, ADIFF, ANEU, CBC, CMP, DENNIS MEADOWS #### [address] [address] WBC 8.6 10 3/mcL Normal 4.6-10.8 [facility] Comment on above: Performed By: #### L IP, GFR, ADIFF, ANEU, CBC, CMP, DENNIS MEADOWS #### [address] [address] CMPon 12-05-2023 Albumin Level 3.8 G/dL Normal 3.5-5.0 [facility] Comment on above: Performed By: #### L IP, GFR, ADIFF, ANEU, CBC, CMP, DENNIS MEADOWS #### [address] [address] Albumin/Globulin [Mass ratio] 1.3 {ratio} Normal 1.1-2.5 [facility] Comment on above: Performed By: #### L IP, GFR, ADIFF, ANEU, CBC, CMP, DENNIS MEADOWS #### [address] [address] ALP [Catalytic activity/Vol] 74 U/L Normal 40-135 [facility] Comment on above: Performed By: #### L IP, GFR, ADIFF, ANEU, CBC, CMPDORI MDW #### [address] [address] ALT [Catalytic activity/Vol] 12 U/L Low 14-59 [facility] Comment on above: Performed By: #### L IP, GFR, ADIFF, ANEU, CBC, CMPDORI MDW #### [place] [address] AST [Catalytic activity/Vol] 7 U/L Low 10-40 [facility] Comment on above: Performed By: #### L IP, GFR, ADIFF, ANEU, CBC, DORI DUQUE MDW #### [address] [address] Bili Total 0.2 mg/dL Normal 0.2-1.0 [facility] Comment on above: Result Comment: Use of this assay is not recommended for patients undergoing treatment with eltrombopag due to the potential for falsely elevated results. Performed By: #### L IP, GFR, ADIFF, ANEU, CBC, DORI DUQUE MDW #### [address] [address] BUN/Creatinine Ratio 12 ratio Normal 7-27 [facility] Comment on above: Performed By: #### L IP, GFR, ADIFF, ANEU, CBC, DORI DUQUE MDW #### [address] [address] Calcium [Mass/Vol] 9.0 mg/dL Normal 8.4-10.2 [facility] Comment on above: Performed By: #### L IP, GFR, ADIFF, ANEU, CBC, DORI DUQUE MDW #### [address] [address] Chloride [Moles/Vol] 103 mmol/L Normal 98-107 [facility] Comment on above: Performed By: #### L IP, GFR, ADIFF, ANEU, CBC, CMP, DENNIS MEADOWS #### [address] [address] CO2 [Moles/Vol] 30 mmol/L High 22-29 [facility] Comment on above: Performed By: #### L IP, GFR, ADIFF, ANEU, CBC, CMP, DENNIS MEADOWS #### [address] [address] Creatinine [Mass/Vol] 0.80 mg/dL Normal 0.55-1.02 [facility] Comment on above: Result Comment: Test ing performed on Siemens Dimension EXL analyzer using a modified kinetic Armando technique. Performed By: #### L IP, GFR, ADIFF, ANEU, CBC, CMP, DENNIS MEADOWS #### [address] [address] Electrolyte Balance 8.0 mEq/L Normal 4.0-15.0 [place] Comment on above: Performed By: #### L IP, GFR, ADIFF, ANEU, CBC, CMP, DENNIS MEADOWS #### [address] [address] Globulin 2.9 G/dL Normal [facility] Comment on above: Performed By: #### L IP, GFR, ADIFF, ANEU, CBC, CMP, DENNIS MEADOWS #### [address] [address] Glucose [Mass/Vol] 96 mg/dL Normal 70-105 [facility] Comment on above: Performed By: #### L IP, GFR, ADIFF, ANEU, CBC, CMP, DENNIS MEADOWS #### [address] [address] Potassium [Moles/Vol] 3.5 mmol/L Normal 3.5-5.1 [facility] Comment on above: Performed By: #### L IP, GFR, ADIFF, ANEU, CBC, CMP, DENNIS MEADOWS #### [address] [address] Sodium [Moles/Vol] 141 mmol/L Normal 136-145 [facility] Comment on above: Performed By: #### L IP, GFR, ADIFF, ANEU, CBC, CMP, DENNIS MEADOWS #### [address] [address] Total Protein 6.7 G/dL Normal 6.4-8.2 [facility] Comment on above: Performed By: #### L IP, GFR, ADIFF, ANEU, CBC, CMP, DENNIS MEADOWS #### [address] [address] Urea nitrogen [Mass/Vol] 10 mg/dL Normal 7-18 [facility] Comment on above: Performed By: #### L IP, GFR, ADIFF, ANEU, CBC, NETO, DENNIS MEADOWS #### [address] [address] CNOVon 12-05-2023 [facility] DINA BENITO ([id number]) 1965 F Date Time Provider Department 12/05/23 3:30 PM JULIÁN MOLINA [facility] During your visit today, we recorded the following information about you: Julián Molina MD 12/05/2023 3:44 PM Signed [facility] Care Triage Note: Patient presents to the express care with complaint of severe upper abdominal pain the last 3 days which is worsening. The pain is worse after eating. She denies fever, vomiting, diarrhea, constipation, blood in stool or emesis. She reports she has been to 2 different outside emergency rooms with similar symptoms in the past but reports no clear diagnosis was given to her for her pain. The patient is uncomfortable holding her midepigastric area. She was referred to the emergency room for further evaluation and treatment. She plans to go to [facility]. Allergies As of Date: 12/05/2023 Noted Allergy Reaction REQUIP (ROPINIROLE) 04/18/2017 11 - Vomiting Date Reviewed: 07/25/2023 Reviewed by: Brittny Boykin LPN - Fully Assessed Primary Visit Diagnosis:Epigastric abdominal pain [R10.13] Prescriptions as of 12/05/2023 - albuterol HFA (PROVENTIL HFA, VENTOLIN HFA) 90 mcg/actuation inhaler Inhale 2 Puffs as instructed every 4 hours as needed for wheezing/shortness of breath. - albuterol (PROVENTIL) 2.5 mg /3 mL (0.083 %) nebulizer solution Use 3 mL via nebulizer every 6 hours as needed. - gabapentin (NEURONTIN) 400 mg capsule Take 1 capsule by mouth daily at bedtime for 90 days. Problem List As Of Date 12/05/2023 Noted Resolved Excessive or frequent menstruation [N92.0] 12/04/2011 Irregular menstrual cycle [N92.6] 12/04/2011 Urgency of urination [R39.15] 12/04/2011 Urge incontinence [N39.41] 12/04/2011 Dysmenorrhea [N94.6] 12/04/2011 Abdominal pain, left lower quadrant [R10.32] 12/04/2011 02/18/2018 Abdominal pain, right lower quadrant [R10.31] 12/04/2011 02/18/2018 Cervical disc disorder with radiculopathy [M50.*08/16/2015 Restless legs [G25.81] 01/20/2017 Cervical sprain, sequela [S13.9XXS] 02/05/2022 07/25/2023 Lumbar sprain [S33.5XXA] 02/05/2022 07/25/2023 Encounter Status:Closed by JULIÁN MOLINA on 12/05/23 Normal [facility] LABORATORYOrdered By: SYSTEM SYSTEM on 12-05-2023 Albumin BCP dye [Mass/Vol] 3.8 G/dL Normal 3.5 - 5.0 G/dL AO ADM SS Albumin/Globulin [Mass ratio] 1.3 {ratio} Normal 1.1 - 2.5 ratio AO ADM SS ALP [Catalytic activity/Vol] 74 U/L Normal 40 - 135 U/L AO ADM SS ALT With P-5'-P [Catalytic activity/Vol] 12 U/L Low 14 - 59 U/L AO ADM SS AST With P-5'-P [Catalytic activity/Vol] 7 U/L Low 10 - 40 U/L AO ADM SS Basophils (Bld) [#/Vol] 0.1 103/mcL Normal 0.0 - 0.2 10^3/mcL AO Workflow SS Basophils/100 WBC (Bld) 0.8 % Normal 0.0 - 2.5 % AO Workflow SS Bilirubin [Mass/Vol] 0.2 mg/dL Normal 0.2 - 1 .0 mg/dL AO ADM SS Comment on above: Interpretive Data: U se of this assay is not recommended for patients undergoing treatment with eltrombopag due to the potential for falsely elevated results. Calcium [Mass/Vol] 9.0 mg/dL Normal 8.4 - 10. 2 mg/dL AO ADM SS Chloride [Moles/Vol] 103 mmol/L Normal 98 - 10 7 mmol/L AO ADM SS CO2 [Moles/Vol] 30 mmol/L High 22 - 29 mmol/L AO ADM SS Creatinine [Mass/Vol] 0.80 mg/dL Normal 0.55 - 1.02 mg/dL AO ADM SS Comment on above: Interpretive Data: T esting performed on Siemens Dimension EXL analyzer using a modified kinetic Armando technique. Electrolyte Balance 8.0 mEq/L Normal 4.0 - 15 .0 mEq/L AO ADM SS Eosinophil, Absolute 0.3 103/mcL Normal 0.0 - 0 .4 10^3/mcL AO Workflow SS Eosinophils/100 WBC (Bld) 3.9 % Normal 0.0 - 7.0 % AO Workflow SS Erythrocyte distribution width (RBC) [Ratio] 12.7 % Normal 11.5 - 14.5 % AO Workflow SS GFR/1.73 sq M.predicted among blacks MDRD (S/P/Bld) [Vol rate/Area] 89 ml/min/1.73sqm Invalid Interpretation Code AO Chemistry S Comment on above: Interpretive Data: GFR Population mean for , Non- Americans Ages 20-29 = 116 mL/min/1.73 sq.m. Ages 30-39 = 107 mL/min/1.73 sq.m. Ages 40-49 = 99 mL/min/1.73 sq.m. Ages 50-59 = 93 mL/min/1.73 sq.m. Ages 60-69 = 85 mL/min/1.73 sq.m. Ages 70+ = 75 mL/min/1.73 sq.m. Chronic Kidney Disease: Less than 60 mL/min/1.73 square meters End Stage Renal Disease: Less than 15 mL/min/1.73 square meters GFR/1.73 sq M.predicted among non-blacks MDRD (S/P/Bld) [Vol rate/Area] 74 ml/min/1.73sqm Invalid Interpretation Code AO Chemistry S Comment on above: Interpretive Data: GFR Population mean for , Non- Americans Ages 20-29 = 116 mL/min/1.73 sq.m. Ages 30-39 = 107 mL/min/1.73 sq.m. Ages 40-49 = 99 mL/min/1.73 sq.m. Ages 50-59 = 93 mL/min/1.73 sq.m. Ages 60-69 = 85 mL/min/1.73 sq.m. Ages 70+ = 75 mL/min/1.73 sq.m. Chronic Kidney Disease: Less than 60 mL/min/1.73 square meters End Stage Renal Disease: Less than 15 mL/min/1.73 square meters Globulin 2.9 G/dL Invalid Interpretation Code AO ADM SS Glucose [Mass/Vol] 96 mg/dL Normal 70 - 105 mg/dL AO ADM SS Hematocrit (Bld) [Volume fraction] 37.9 % Normal 37.0 - 47.0 % AO Workflow SS Hemoglobin (Bld) [Mass/Vol] 12.7 G/dL Normal 12.0 - 16.0 G/dL AO Workflow SS Lipase [Catalytic activity/Vol] 21 U/L Normal 16 - 77 U/L AO ADM SS Lymphocytes (Bld) [#/Vol] 2.3 103/mcL Normal 0.8 - 3.9 10^3/mcL AO Workflow SS Lymphocytes/100 WBC (Bld) 26.1 % Normal 10.0 - 50.0 % AO Workflow SS MCH (RBC) [Entitic mass] 30.7 pg Normal 27.0 - 31.2 pg AO Workflow SS MCHC 33.6 G/dL Normal 33.0 - 37.0 G/dL AO Workflow SS MCV (RBC) [Entitic vol] 91.5 fL Normal 80.0 - 94.0 fL AO Workflow SS Monocyte distribution width Auto (Bld) [Entitic vol] 19.72 1 Normal 0.00 - 20.00 AO Workflow SS Comment on above: Result Comment: For ED adult patients suspected of sepsis, MDW<=20.0 does not rule out sepsis or risk of sepsis Monocytes (Bld) [#/Vol] 0.6 103/mcL Normal 0.2 - 1.0 10^3/mcL AO Workflow SS Monocytes/100 WBC (Bld) 6.9 % Normal 1.7 - 13.0 % AO Workflow SS Neutrophils (Bld) [#/Vol] 5.4 103/mcL Normal 2.9 - 6.2 10^3/mcL AO Workflow SS Neutrophils/100 WBC (Bld) 62.3 % Normal 37.0 - 80.0 % AO Workflow SS Platelet mean volume (Bld) [Entitic vol] 8.5 fL Normal 7.4 - 10.4 fL AO Workflow SS Platelets (Bld) [#/Vol] 228 103/mcL Normal 130 - 400 10^3/mcL AO Workflow SS Potassium [Moles/Vol] 3.5 mmol/L Normal 3.5 - 5.1 mmol/L AO ADM SS Protein [Mass/Vol] 6.7 G/dL Normal 6.4 - 8.2 G/dL AO ADM SS RBC (Bld) [#/Vol] 4.15 106/mcL Low 4.20 - 5.4 0 10^6/mcL AO Workflow SS Sodium [Moles/Vol] 141 mmol/L Normal 136 - 145 mmol/L AO ADM SS Troponin I.cardiac DL <= 0.01 ng/mL [Mass/Vol] ng/L Normal 0 - 51 ng/L AO ADM SS Comment on above: Interpretive Data: H igh Sensitive Troponin I Reference Ranges: Female: 0-51 ng/L Male: 0-76 ng/L Testing performed on Dimension EXL using a homogeneous sandwich chemiluminescent immunoassay based on [employer] technology. Urea nitrogen [Mass/Vol] 10 mg/dL Normal 7 - 18 mg/dL AO ADM SS Urea nitrogen/Creatinine [Mass ratio] 12 ratio Normal 7 - 27 ratio AO ADM SS WBC (Bld) [#/Vol] 8.6 103/mcL Normal 4.6 - 10.8 10^3/mcL AO Workflow SS LIPon 12-05-2023 Lipase Level 21 U/L Normal 16-77 [facility] Comment on above: Performed By: #### L IP, GFR, ADIFF, ANEU, CBC, CMP, DENNIS MEADOWS #### [facility] [address] [place], [place] [address] [facility] High Sensitivity Troponin I <4 Normal 0-51 [facility] Comment on above: Result Comment: High Sensitive Troponin I Reference Ranges: Female: 0-51 ng/L Male: 0-76 ng/L Testing performed on Dimension EXL using a homogeneous sandwich chemiluminescent immunoassay based on [employer] technology. Performed By: #### L IP, GFR, ADIFF, ANEU, CBC, CMP, DENNIS MEADOWS #### [facility] [address] [place], [place] [address] XR CHEST 1 VIEWon 12-05-2023 XR CHEST 1 VIEW ORIGINAL EXAMINATION: ONE XRAY VIEW OF THE CHEST 12/05/2023 5:19 pm COMPARISON: None. HISTORY: ORDERING SYSTEM PROVIDED HISTORY: Reason for Exam: chest pain FINDINGS: Cardiomediastinal silhouette is normal in size. Prominent lung volumes. Costophrenic angles are sharp. No radiographic pneumothorax. Bilateral apical scarring. No focal consolidation. Linear opacity projects over the right upper lung field, over the right 5th rib posteriorly. IMPRESSION: Linear opacity projects over the right upper lung field, over the right 5th rib posteriorly. Differential includes airspace disease or sclerotic changes to the rib. Correlate with any prior imaging and patient history. Further investigation may be warranted. Interpreted by: Stephan Rutherford Preliminary Report By: Stephan Rutherford Electronically signed By Stephan Rutherford Dictated Date: 12/05/2023 5:20:57 PM Prelim Date: 12/05/2023 5:23:25 PM Sign Date: 12/05/2023 5:23:25 PM Ordering Provider: KONRAD ACKERMAN 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 Please notify her of below, thank you. Hdl and total slightly higher. So is ldl. Numbers don't require medications. I would just watch diet. Regular exercise helps too.. Call if any questions. Take care. ... Shagufta Carreno MA 10/28/2023 11:22 AM Addendum Called and left message on patients voicemail to return call to the office and ask to speak with a FM triage nurse. Please relay information below from Provider. Shagufta Carreno MA Additional message from Provider: The 10-year ASCVD risk score (Sobeida DON, et al., 2019) is: 6.5% Values used to calculate the score: Age: 57 years Sex: Female Is Non- : No Diabetic: No Tobacco smoker: Yes Systolic Blood Pressure: 109 mmHg Is BP treated: No HDL Cholesterol: 31 mg/dL Total Cholesterol: 200 mg/dL Josr Connolly LPN 10/29/2023 12:03 PM Signed Patient notified and voiced her understanding. Allergies As of Date: 10/28/2023 Noted Allergy Reaction REQUIP (ROPINIROLE) 04/18/2017 11 - Vomiting Date Reviewed: 07/25/2023 Reviewed by: Brittny Boykin LPN - Fully Assessed Reason for Visit: Patient Update [1234] Prescriptions as of 10/29/2023 - albuterol HFA (PROVENTIL HFA, VENTOLIN HFA) 90 mcg/actuation inhaler Inhale 2 Puffs as instructed every 4 hours as needed for wheezing/shortness of breath. - albuterol (PROVENTIL) 2.5 mg /3 mL (0.083 %) nebulizer solution Use 3 mL via nebulizer every 6 hours as needed. - gabapentin (NEURONTIN) 400 mg capsule Take 1 capsule by mouth daily at bedtime for 90 days. Problem List As Of Date 10/28/2023 Noted Resolved Excessive or frequent menstruation [N92.0] 12/04/2011 Irregular menstrual cycle [N92.6] 12/04/2011 Urgency of urination [R39.15] 12/04/2011 Urge incontinence [N39.41] 12/04/2011 Dysmenorrhea [N94.6] 12/04/2011 Abdominal pain, left lower quadrant [R10.32] 12/04/2011 02/18/2018 Abdominal pain, right lower quadrant [R10.31] 12/04/2011 02/18/2018 Cervical disc disorder with radiculopathy [M50.*08/16/2015 Restless legs [G25.81] 01/20/2017 Cervical sprain, sequela [S13.9XXS] 02/05/2022 07/25/2023 Lumbar sprain [S33.5XXA] 02/05/2022 07/25/2023 Encounter Status:Closed by JOSR CONNOLLY on 10/29/23 Normal [facility] HCV Ab Ser Qlon 10-24-2023 HCV Ab Ql (S) Negative Normal Negative [facility] Comment on above: Order Comment: Speci men Type: BLOOD SPECIMENOrdering Facility: [facility] Address: [address] [place] [address] Result Comment: The result suggests no evidence of active infection with Hepatitis C virus. Should recent infection be suspected, repeat testing may be considered 4-6 weeks after this draw. Performed By: #### 1 6128-1 ####[facility] LABCLIA [id number] [place] [address] [place] Lipid 1996 panelon 4 Cholesterol [Mass/Vol] 200 mg/dL High <200 [facility] Comment on above: Order Comment: Speci men Type: BLOOD SPECIMENOrdering Facility: [facility] Address: [address] [place] [address] Result Comment: <200 mg/dL, Desirable 200-239 mg/dL, Borderline high >239 mg/dL, High Performed By: #### 2 4331-1 ####[facility] LABCLIA [id number] [place] [address] [place] Cholesterol in HDL [Mass/Vol] 31 mg/dL Low >39 [facility] Comment on above: Order Comment: Speci men Type: BLOOD SPECIMENOrdering Facility: [facility] Address: [address] [place] [address] Result Comment: 40-5 9 mg/dL, Acceptable >59 mg/dL, High: Negative risk factor for coronary heart disease <40 mg/dL, Low: Positive risk factor for coronary heart disease Performed By: #### 2 4331-1 ####[facility] LABCLIA [id number] [place] [address] [place] Cholesterol in LDL [Mass/Vol] 147 mg/dL High <100 [facility] Comment on above: Order Comment: Speci men Type: BLOOD SPECIMENOrdering Facility: [facility] Address: [address] [place] [address] Result Comment: <100 mg/dL, Optimal 100-129 mg/dL, Near optimal/above optimal 130-159 mg/dL, Borderline high 160-189 mg/dL, High >189 mg/dL, Very high Secondary prevention optimal LDL Cholesterol levels are recommended to be < 70 mg/dL Performed By: #### 2 4331-1 ####[facility] LABCLIA [id number] [place] [address] [place] Cholesterol in LDL/Cholesterol in HDL [Mass ratio] 4.74 {ratio} High <2.54 [facility] Comment on above: Order Comment: Speci men Type: BLOOD SPECIMENOrdering Facility: [facility] Address: [address] [place] [address] Result Comment: Jaret perez: 1. National Cholesterol Education Program ATP III Guideline At-A-Glance Quick Desk Reference: National Heart, Lung, and Blood [place]. National Institutes of Health. 2001: NIH Publication No. 01-3305. 2. An International Atherosclerosis Society position paper: global recommendations for the management of dyslipidemia: executive summary, Atherosclerosis. 2014: 232(2):410-413. Performed By: #### 2 4331-1 ####[facility] LABCLIA [id number] [place] [address] [place] Cholesterol in VLDL [Mass/Vol] 22 mg/dL Normal <30 [facility] Comment on above: Order Comment: Loretai bernadette Type: BLOOD SPECIMENOrdering Facility: [facility] Address: [address] [place] [address] Performed By: #### 2 4331-1 ####[facility] LABCLIA [id number] [place] [address] [place] Cholesterol non HDL [Mass/Vol] 169 mg/dL High <130 [facility] Comment on above: Order Comment: June fleming Type: BLOOD SPECIMENOrdering Facility: [facility] Address: [address] [place] [address] Result Comment: <130 mg/dL, Optimal 130-159 mg/dL, Near optimal/above optimal 160-189 mg/dL, Borderline high 190-219 mg/dL, High >219 mg/dL, Very high Secondary prevention optimal non HDL Cholesterol levels are recommended to be <100 mg/dL Performed By: #### 2 4331-1 ####[facility] LABCLIA [id number] [place] [address] [place] Cholesterol.total/Chol esterol in HDL [Mass ratio] 6.45 {ratio} High <5.10 [facility] Comment on above: Order Comment: June fleming Type: BLOOD SPECIMENOrdering Facility: [facility] Address: [address] [place] [address] Performed By: #### 2 4331-1 ####[facility] LABCLIA [id number] [place] [address] [place] FASTING TIME 12 hrs Normal [facility] Comment on above: Order Comment: Speci men Type: BLOOD SPECIMENOrdering Facility: [facility] Address: [address] [place] [address] Performed By: #### 2 4331-1 ####[facility] LABCLIA [id number] [place] [address] [place] Triglyceride [Mass/Vol] 109 mg/dL Normal <150 [facility] Comment on above: Order Comment: Speci men Type: BLOOD SPECIMENOrdering Facility: [facility] Address: [address] [place] [address] Result Comment: <150 mg/dL, Normal 150-199 mg/dL, Borderline high 200-499 mg/dL, High >499 mg/dL, Very high Performed By: #### 2 4331-1 ####[facility] LABCLIA [id number] [place] [address] [place] .Auto Diffon 08-24-2023 Basophil, Absolute 0.1 10 3/mcL Normal 0.0-0.2 [facility] ([place]) Comment on above: Performed By: #### G DENNIS CROUCH, CMP, ADIFF, CBC, LIP, ANEU #### [address] [address] Basophils/100 WBC (Bld) 0.4 % Normal 0.0-2.5 [facility] ([place]) Comment on above: Performed By: #### G DENNIS CROUCH, CMP, ADIFF, CBC, LIP, ANEU #### [address] [address] Eosinophil, Absolute 0.1 10 3/mcL Normal 0.0-0.4 [facility] ([place]) Comment on above: Performed By: #### Mora CROUCH, W, CMP, ADIFF, CBC, LIP, ANEU #### [address] [address] Eosinophils/100 WBC (Bld) 0.8 % Normal 0.0-7.0 [facility] ([place]) Comment on above: Performed By: #### DENNIS NUNEZ, CMP, ADIFF, CBC, LIP, ANEU #### [address] [address] Lymphocyte, Absolute 1.9 10 3/mcL Normal 0.8-3.9 [facility] ([place]) Comment on above: Performed By: #### DENNIS NUNEZ, CMP, ADIFF, CBC, LIP, ANEU #### [address] [address] Lymphocytes/100 WBC (Bld) 13.4 % Normal 10.0-50.0 [facility] ([place]) Comment on above: Performed By: #### DENNIS NUNEZ, CMP, ADIFF, CBC, LIP, ANEU #### [address] [address] Monocyte, Absolute 0.6 10 3/mcL Normal 0.2-1.0 [facility] ([place]) Comment on above: Performed By: #### DENNIS NUNEZ, CMP, ADIFF, CBC, LIP, ANEU #### [address] [address] Monocytes/100 WBC (Bld) 4.3 % Normal 1.7-13.0 [facility] ([place]) Comment on above: Performed By: #### DENNIS NUNEZ, CMP, ADIFF, CBC, LIP, ANEU #### [address] [address] Neutrophils/100 WBC (Bld) 81.1 % High 37.0-80.0 [facility] ([place]) Comment on above: Performed By: #### DENNIS NUNEZ, CMP, ADIFF, CBC, LIP, ANEU #### [address] [address] .GFRon 08-24-2023 GFR Non- 70 ml/min/1.73sqm Normal [facility] ([place]) Comment on above: Result Comment: GFR Population mean for , Non- Americans Ages 20-29 = 116 mL/min/1.73 sq.m. Ages 30-39 = 107 mL/min/1.73 sq.m. Ages 40-49 = 99 mL/min/1.73 sq.m. Ages 50-59 = 93 mL/min/1.73 sq.m. Ages 60-69 = 85 mL/min/1.73 sq.m. Ages 70+ = 75 mL/min/1.73 sq.m. Chronic Kidney Disease: Less than 60 mL/min/1.73 square meters End Stage Renal Disease: Less than 15 mL/min/1.73 square meters Performed By: #### G , DENNIS, CMP, ADIFF, CBC, LIP, ANEU #### [place] [id number] GFR 85 ml/min/1.73sqm Normal [facility] ([place]) Comment on above: Result Comment: GFR Population mean for , Non- Americans Ages 20-29 = 116 mL/min/1.73 sq.m. Ages 30-39 = 107 mL/min/1.73 sq.m. Ages 40-49 = 99 mL/min/1.73 sq.m. Ages 50-59 = 93 mL/min/1.73 sq.m. Ages 60-69 = 85 mL/min/1.73 sq.m. Ages 70+ = 75 mL/min/1.73 sq.m. Chronic Kidney Disease: Less than 60 mL/min/1.73 square meters End Stage Renal Disease: Less than 15 mL/min/1.73 square meters Performed By: #### G , DENNIS, CMP, ADIFF, CBC, LIP, ANEU #### [address] [address] .MDWon 08-24-2023 Monocyte Distribution Width 16.05 Normal 0.00-20.00 [facility] ([place]) Comment on above: Result Comment: For ED adult patients suspected of sepsis, MDW<=20.0 does not rule out sepsis or risk of sepsis Performed By: #### G , W, CMP, ADIFF, CBC, LIP, ANEU #### [place] [id number] .NEUABSon 08-24-2023 Neutrophil, Absolute 11.2 10 3/mcL High 2.9-6.2 A [facility] ([place]) Comment on above: Performed By: #### DENNIS NUNEZ, CMP, ADIFF, CBC, LIP, ANEU #### [place] [address] CBCon 08-24-2023 Erythrocyte distribution width (RBC) [Ratio] 13.3 % Normal 11.5-14.5 [facility] ([place]) Comment on above: Performed By: #### DENNIS NUNEZ, CMP, ADIFF, CBC, LIP, ANEU #### [place] [address] Hematocrit (Bld) [Volume fraction] 38.2 % Normal 37.0-47.0 [facility] ([place]) Comment on above: Performed By: #### DENNIS NUNEZ, NETO, ADIFF, CBC, LIP, ANEU #### [place] [address] Hgb 13.4 G/dL Normal 12.0-16.0 [facility] ([place]) Comment on above: Performed By: #### DENNIS NUNEZ, NETO, ADIFF, CBC, LIP, ANEU #### [place] [address] MCH (RBC) [Entitic mass] 30.5 pg Normal 27.0-31.2 [facility] ([place]) Comment on above: Performed By: #### DENNIS NUNEZ, CMP, ADIFF, CBC, LIP, ANEU #### [place] [address] MCHC 35.1 G/dL Normal 33.0-37.0 [facility] ([place]) Comment on above: Performed By: #### DENNIS NUNEZ, CMP, ADIFF, CBC, LIP, ANEU #### [place] [address] MCV (RBC) [Entitic vol] 87.0 fL Normal 80.0-94.0 [facility] ([place]) Comment on above: Performed By: #### DENNIS NUNEZ, CMP, ADIFF, CBC, LIP, ANEU #### [address] [address] Platelet 267 10 3/mcL Normal 130-400 [facility] ([place]) Comment on above: Performed By: #### DENNIS NUNEZ, CMP, ADIFF, CBC, LIP, ANEU #### [address] [address] Platelet mean volume (Bld) [Entitic vol] 8.7 fL Normal 7.4-10.4 [facility] ([place]) Comment on above: Performed By: #### DENNIS NUNEZ, CMP, ADIFF, CBC, LIP, ANEU #### [address] [address] RBC 4.39 10 6/mcL Normal 4.20-5.40 [facility] ([place]) Comment on above: Performed By: #### DENNIS NUNEZ, CMP, ADIFF, CBC, LIP, ANEU #### [address] [address] WBC 13.9 10 3/mcL High 4.6-10.8 [facility] ([place]) Comment on above: Performed By: #### DENNIS NUNEZ, CMP, ADIFF, CBC, LIP, ANEU #### [address] [address] CMPon 08-24-2023 Albumin Level 4.2 G/dL Normal 3.5-5.0 [facility] ([place]) Comment on above: Performed By: #### DENNIS NUNEZ, CMP, ADIFF, CBC, LIP, ANEU #### [address] [address] Albumin/Globulin [Mass ratio] 1.3 {ratio} Normal 1.1-2.5 [facility] ([place]) Comment on above: Performed By: #### DENNIS NUNEZ, CMP, ADIFF, CBC, LIP, ANEU #### [address] [address] ALP [Catalytic activity/Vol] 78 U/L Normal 40-135 [facility] ([place]) Comment on above: Performed By: #### DENNIS NUNEZ, NETO, ADIFF, CBC, LIP, ANEU #### [address] [address] ALT [Catalytic activity/Vol] 17 U/L Normal 14-59 [facility] ([place]) Comment on above: Performed By: #### DENNIS NUNEZ, NETO, ADIFF, CBC, LIP, ANEU #### [address] [address] AST [Catalytic activity/Vol] 9 U/L Low 10-40 [facility] ([place]) Comment on above: Performed By: #### DENNIS NUNEZ, NETO, ADIFF, CBC, LIP, ANEU #### [address] [address] Bili Total 0.4 mg/dL Normal 0.2-1.0 [facility] ([place]) Comment on above: Result Comment: Use of this assay is not recommended for patients undergoing treatment with eltrombopag due to the potential for falsely elevated results. Performed By: #### DENNIS NUNEZ, NETO, ADIFF, CBC, LIP, ANEU #### [address] [address] BUN/Creatinine Ratio 12 ratio Normal 7-27 [facility] ([place]) Comment on above: Performed By: #### DENNIS NUNEZ, NETO, ADIFF, CBC, LIP, ANEU #### [address] [address] Calcium [Mass/Vol] 9.0 mg/dL Normal 8.4-10.2 [facility] ([place]) Comment on above: Performed By: #### DENNIS NUNEZ, NETO, ADIFF, CBC, LIP, ANEU #### [address] [address] Chloride [Moles/Vol] 105 mmol/L Normal 98-107 [facility] ([place]) Comment on above: Performed By: #### DENNIS NUNEZ, NETO, ADIFF, CBC, LIP, ANEU #### [address] [address] CO2 [Moles/Vol] 27 mmol/L Normal 22-29 [facility] ([place]) Comment on above: Performed By: #### DENNIS NUNEZ, NETO, ADIFF, CBC, LIP, ANEU #### [address] [address] Creatinine [Mass/Vol] 0.84 mg/dL Normal 0.55-1.02 [facility] ([place]) Comment on above: Performed By: #### DENNIS NUNEZ, NETO, ADIFF, CBC, LIP, ANEU #### [address] [address] Electrolyte Balance 8.0 mEq/L Normal 4.0-15.0 [facility] ([place]) Comment on above: Performed By: #### DENNIS NUNEZ, NETO, ADIFF, CBC, LIP, ANEU #### [address] [address] Globulin 3.2 G/dL Normal [facility] ([place]) Comment on above: Performed By: #### DENNIS NUNEZ, NETO, ADIFF, CBC, LIP, ANEU #### [address] [address] Glucose [Mass/Vol] 114 mg/dL High 70-105 [facility] ([place]) Comment on above: Performed By: #### DENNIS NUNEZ, NETO, ADIFF, CBC, LIP, ANEU #### [address] [address] Potassium [Moles/Vol] 3.9 mmol/L Normal 3.5-5.1 [facility] ([place]) Comment on above: Performed By: #### DENNIS NUNEZ, NETO, ADIFF, CBC, LIP, ANEU #### [address] [address] Sodium [Moles/Vol] 140 mmol/L Normal 136-145 [facility] ([place]) Comment on above: Performed By: #### G FR, MDW, CMP, ADIFF, CBC, LIP, ANEU #### [facility] [address] [place], [place] [address] Total Protein 7.4 G/dL Normal 6.4-8.2 [facility] ([place]) Comment on above: Performed By: #### G , W, CMP, ADIFF, CBC, LIP, ANEU #### [facility] [address] [place], [place] [address] Urea nitrogen [Mass/Vol] 10 mg/dL Normal 7-18 [facility] ([place]) Comment on above: Performed By: #### G , W, CMP, ADIFF, CBC, LIP, ANEU #### [place] [id number] [place], [place] [address] CT ABD/PELVIS W/ IV CONTRAST ONLYon 08-24-2023 CT ABD/PELVIS W/ IV CONTRAST ONLY ORIGINAL EXAMINATION: CT OF THE ABDOMEN AND PELVIS WITH CONTRAST08/24/2023 5:40 pm TECHNIQUE: CT of the abdomen and pelvis was performed with the administration of intravenous contrast. Multiplanar reformatted images are provided for review. Automated exposure control, iterative reconstruction, and/or weight based adjustment of the mA/kV was utilized to reduce the radiation dose to as low as reasonably achievable. COMPARISON: None HISTORY: ORDERING SYSTEM PROVIDED HISTORY: Reason for Exam: Mid abdominal pain FINDINGS: No acute fracture or dislocation. Degenerative changes of the spine. No pleural or pericardial effusion. The heart is normal in size. 0.4 cm density in the inferior anterior pericardial region may represent a small lymph node. Small hypodense area adjacent to the falciform ligament likely represents focal fatty infiltration. The spleen, pancreas, gallbladder, and adrenal glands are unremarkable. The kidneys enhance symmetrically. No evidence of hydronephrosis or urolithiasis. The bladder is decompressed, limiting evaluation. No adnexal masses. The solid pelvic organs demonstrate no acute abnormality. Pelvic phleboliths. Mild thickening at the GE junction is noted. There is a small duodenal diverticulum. The colon is partially decompressed. Small amount of fat within the descending colon wall may represent remote insult. The appendix is not definitively identified, however no pericecal inflammation is seen. Mildly atherosclerotic nonaneurysmal aorta. No pathologically enlarged lymph nodes are identified. No free intraperitoneal air or fluid. Small fat containing umbilical hernia. IMPRESSION: Mild thickening at the GE junction could be due to a nondistended small hiatal hernia versus distal esophageal inflammation. Otherwise, no acute intra-abdominal abnormalities. Chronic and incidental findings as above. I have personally reviewed the images of this examination and agree with the resident's findings and interpretation. Interpreted by: Kalpesh Pimentel DO Preliminary Report By: Mejia Grajeda Electronically signed By Kalpesh Pimentel DO Dictated Date: 08/24/2023 5:42:35 PM Prelim Date: 08/24/2023 5:52:23 PM Sign Date: 08/24/2023 6:10:01 PM Ordering Provider: MEGAN Polanco [facility] ([place]) LABORATORYOrdered By: [employer] on 08-24-2023 Albumin BCP dye [Mass/Vol] 4.2 G/dL Normal 3.5 - 5.0 G/dL AO ADM SS Albumin/Globulin [Mass ratio] 1.3 {ratio} Normal 1.1 - 2.5 ratio AO ADM SS ALP [Catalytic activity/Vol] 78 U/L Normal 40 - 135 U/L AO ADM SS ALT With P-5'-P [Catalytic activity/Vol] 17 U/L Normal 14 - 59 U/L AO ADM SS AST With P-5'-P [Catalytic activity/Vol] 9 U/L Low 10 - 40 U/L AO ADM SS Basophil, Absolute 0.1 103/mcL Normal 0.0 - 0.2 10^3/mcL AO Workflow SS Basophils/100 WBC (Bld) 0.4 % Normal 0.0 - 2.5 % AO Workflow SS Bilirubin [Mass/Vol] 0.4 mg/dL Normal 0.2 - 1 .0 mg/dL AO ADM SS Comment on above: Interpretive Data: U se of this assay is not recommended for patients undergoing treatment with eltrombopag due to the potential for falsely elevated results. Calcium [Mass/Vol] 9.0 mg/dL Normal 8.4 - 10. 2 mg/dL AO ADM SS Chloride [Moles/Vol] 105 mmol/L Normal 98 - 10 7 mmol/L AO ADM SS CO2 [Moles/Vol] 27 mmol/L Normal 22 - 29 mmol/L AO ADM SS Creatinine [Mass/Vol] 0.84 mg/dL Normal 0.55 - 1.02 mg/dL AO ADM SS Electrolyte Balance 8.0 mEq/L Normal 4.0 - 15 .0 mEq/L AO ADM SS Eosinophil, Absolute 0.1 103/mcL Normal 0.0 - 0 .4 10^3/mcL AO Workflow SS Eosinophils/100 WBC (Bld) 0.8 % Normal 0.0 - 7.0 % AO Workflow SS Erythrocyte distribution width (RBC) [Ratio] 13.3 % Normal 11.5 - 14.5 % AO Workflow SS GFR/1.73 sq M.predicted among blacks MDRD (S/P/Bld) [Vol rate/Area] 85 ml/min/1.73sqm Invalid Interpretation Code AO Chemistry S Comment on above: Interpretive Data: GFR Population mean for , Non- Americans Ages 20-29 = 116 mL/min/1.73 sq.m. Ages 30-39 = 107 mL/min/1.73 sq.m. Ages 40-49 = 99 mL/min/1.73 sq.m. Ages 50-59 = 93 mL/min/1.73 sq.m. Ages 60-69 = 85 mL/min/1.73 sq.m. Ages 70+ = 75 mL/min/1.73 sq.m. Chronic Kidney Disease: Less than 60 mL/min/1.73 square meters End Stage Renal Disease: Less than 15 mL/min/1.73 square meters GFR/1.73 sq M.predicted among non-blacks MDRD (S/P/Bld) [Vol rate/Area] 70 ml/min/1.73sqm Invalid Interpretation Code AO Chemistry S Comment on above: Interpretive Data: GFR Population mean for , Non- Americans Ages 20-29 = 116 mL/min/1.73 sq.m. Ages 30-39 = 107 mL/min/1.73 sq.m. Ages 40-49 = 99 mL/min/1.73 sq.m. Ages 50-59 = 93 mL/min/1.73 sq.m. Ages 60-69 = 85 mL/min/1.73 sq.m. Ages 70+ = 75 mL/min/1.73 sq.m. Chronic Kidney Disease: Less than 60 mL/min/1.73 square meters End Stage Renal Disease: Less than 15 mL/min/1.73 square meters Globulin 3.2 G/dL Invalid Interpretation Code AO ADM SS Glucose [Mass/Vol] 114 mg/dL High 70 - 105 mg/dL AO ADM SS Hematocrit (Bld) [Volume fraction] 38.2 % Normal 37.0 - 47.0 % AO Workflow SS Hemoglobin (Bld) [Mass/Vol] 13.4 G/dL Normal 12.0 - 16.0 G/dL AO Workflow SS Lipase [Catalytic activity/Vol] 17 U/L Normal 16 - 77 U/L AO ADM SS Lymphocyte, Absolute 1.9 103/mcL Normal 0.8 - 3 .9 10^3/mcL AO Workflow SS Lymphocytes/100 WBC (Bld) 13.4 % Normal 10.0 - 50.0 % AO Workflow SS MCH (RBC) [Entitic mass] 30.5 pg Normal 27.0 - 31.2 pg AO Workflow SS MCHC 35.1 G/dL Normal 33.0 - 37.0 G/dL AO Workflow SS MCV (RBC) [Entitic vol] 87.0 fL Normal 80.0 - 94.0 fL AO Workflow SS Monocyte distribution width Auto (Bld) [Entitic vol] 16.05 1 Normal 0.00 - 20.00 AO Workflow SS Comment on above: Result Comment: For ED adult patients suspected of sepsis, MDW<=20.0 does not rule out sepsis or risk of sepsis Monocyte, Absolute 0.6 103/mcL Normal 0.2 - 1.0 10^3/mcL AO Workflow SS Monocytes/100 WBC (Bld) 4.3 % Normal 1.7 - 13.0 % AO Workflow SS Neutrophil, Absolute 11.2 103/mcL High 2.9 - 6 .2 10^3/mcL AO Workflow SS Neutrophils/100 WBC (Bld) 81.1 % High 37.0 - 80.0 % AO Workflow SS Platelet mean volume (Bld) [Entitic vol] 8.7 fL Normal 7.4 - 10.4 fL AO Workflow SS Platelets (Bld) [#/Vol] 267 103/mcL Normal 130 - 400 10^3/mcL AO Workflow SS Potassium [Moles/Vol] 3.9 mmol/L Normal 3.5 - 5.1 mmol/L AO ADM SS Protein [Mass/Vol] 7.4 G/dL Normal 6.4 - 8.2 G/dL AO ADM SS RBC (Bld) [#/Vol] 4.39 106/mcL Normal 4.20 - 5.4 0 10^6/mcL AO Workflow SS Sodium [Moles/Vol] 140 mmol/L Normal 136 - 145 mmol/L AO ADM SS Urea nitrogen [Mass/Vol] 10 mg/dL Normal 7 - 18 mg/dL AO ADM SS Urea nitrogen/Creatinine [Mass ratio] 12 ratio Normal 7 - 27 ratio AO ADM SS WBC (Bld) [#/Vol] 13.9 103/mcL High 4.6 - 10.8 10^3/mcL AO Workflow SS LIPon 08-24-2023 Lipase Level 17 U/L Normal 16-77 [facility] ([place]) Comment on above: Performed By: #### G FR, MDW, CMP, ADIFF, CBC, LIP, ANEU #### [place] [id number] [place], [place] [address] STREP A MOLECULAR (POC)on Procedural Control Valid [facility] Strep A (POCT) Negative Negative [facility] MISA SCREENINGon 05-15-2022 [facility] Absolute lymphocyte counton 08-02-2021 Lymphocytes Auto (Unsp spec) [#/Vol] 2.09 10*3/uL 0.83-4.51 [facility] Work Phone: Basophil percentageon 2021 Basophil percentage 0-5 SEEN /hpf [facility] Work Phone: Basophils/100 WBC (Bld) 0.3 % 0-1 [facility] Work Phone: Bilirubin [Mass/Vol] 0.20 mg/dL 0.20-1.00 [facility] Work Phone: [phone] Comment on above: For patients on eltr ombopag therapy, use of Dimension [place] TBIL is not recommended. Chloride [Moles/Vol] 108 mmol/L 98-107 [facility] Work Phone: Eosinophils/100 WBC (Bld) 0.8 % 0-5 [facility] Work Phone: Glucose [Mass/Vol] 124 mg/dL 74-106 [facility] Work Phone: Comment on above: Fasting Glucose resu lt from 100 to 125 mg/dL suggests IMPAIRED HOMEOSTASIS per A.D.A. criteria. Neutrophils (Bld) [#/Vol] 4.7 10*3/uL 2.0-7.7 [facility] Work Phone: Neutrophils/100 WBC (Bld) 62.2 % 47-70 [facility] Work Phone: Potassium [Moles/Vol] 3.1 mmol/L 3.5-5.1 [facility] Work Phone: Comment on above: Slight Hemolysis, Re sult may be falsely increased. Protein [Mass/Vol] 7.2 g/dL 6.4-8.2 [facility] Work Phone: Sodium [Moles/Vol] 138 mmol/L 136-145 [facility] Work Phone: WBC (Bld) [#/Vol] 7.5 10*3/uL 4.4-11.0 [facility] Work Phone: Bilirubin Test strip Ql (U)o n 08-02-2021 Bilirubin Ql (U) Negative Negative [facility] Work Phone: Blood erythrocytes count (nu mber/volume)on 08-02-2021 RBC (Bld) [#/Vol] 4.50 10*6/uL 4.2-5.4 [facility] Work Phone: Blood hemoglobin measurement (mass/volume)on 08-02-2021 Hemoglobin (Bld) [Mass/Vol] 13.5 g/dL 12.0-15.0 [facility] Work Phone: Blood lymphocytes/100 leukoc yteson 08-02-2021 Lymphocytes/100 WBC (Bld) 27.8 % 19-41 [facility] Work Phone: Blood monocytes/100 leukocyt eson 08-02-2021 Monocytes/100 WBC (Bld) 8.6 % 0-10 [facility] Work Phone: Blood platelet mean volumeon 08-02-2021 Platelet mean volume (Bld) [Entitic vol] 9.9 fL 6.2-12.0 [facility] Work Phone: Determination of erythrocyte mean corpuscular volume (MCV)on 08-02-2021 MCV (RBC) [Entitic vol] 90.2 fL 81-99 [facility] Work Phone: Hematocrit Auto (Bld) [Volum e fraction]on 08-02-2021 Hematocrit (Bld) [Volume fraction] 40.6 % 37-47 [facility] Work Phone: Ketones Test strip Ql (U)on 08-02-2021 Ketones Ql (U) 5 mg/dl Negative [facility] Work Phone: Laboratory - Chemistry and C hemistry - challengeon 08-02-2021 ALP [Catalytic activity/Vol] 68 U/L 45-117 [facility] Work Phone: ALT [Catalytic activity/Vol] 28 U/L 13-56 [facility] Work Phone: CO2 [Moles/Vol] 26.0 mmol/L 21.0-32.0 [facility] Work Phone: Globulin (S) [Mass/Vol] 3.6 g/dL 2.2-4.2 [facility] Work Phone: Lipase [Catalytic activity/Vol] 108 U/L 73-393 [facility] Work Phone: Urea nitrogen/Creatinine [Mass ratio] 24.7 mg/mg 10-20 [facility] Work Phone: Laboratory - Hematology and Cell countson 08-02-2021 Erythrocyte distribution width (RBC) [Entitic vol] 40.3 fL 35.1-43.9 [facility] Work Phone: Erythrocyte distribution width (RBC) [Ratio] 12.2 % 11.6-14.6 [facility] Work Phone: Immature granulocytes/100 WBC (Bld) 0.300 % 0.0-0.9 [facility] Work Phone: Comment on above: IG% - Immature Granu locytes (promyelocytes, myelocytes and metamyelocytes) > 1% indicates that a LEFT SHIFT is Present. MCH (RBC) [Entitic mass] 30.0 pg 27.0-32.0 [facility] Work Phone: Nucleated RBC/100 WBC (Bld) [Ratio] 0 % 0-5 [facility] Work Phone: MCHC Auto (RBC) [Mass/Vol]on 08-02-2021 MCHC (RBC) [Mass/Vol] 33.3 g/dL 32-36 [facility] Work Phone: Mucus LM Ql (Urine sed)on Mucus Ql (Urine sed) 0 SEEN /hpf [facility] Work Phone: Nitrite Test strip Ql (U)on 08-02-2021 Nitrite Ql (U) Negative Negative [facility] Work Phone: No Panel Informationon 08-02 Estimated Creatinine Clearance Calc 72.86 ml/min [facility] Work Phone: Estimated GFR (MDRD) Amer 114 mL/min >60 [facility] Work Phone: Comment on above: GFR Calc Estimated GFR (MDRD) Non-Af Amer 94 mL/min >60 [facility] Work Phone: Comment on above: Non- GFR Calc Platelets bldon 08-02-2021 Platelets (Bld) [#/Vol] 192 10*3/uL 150-450 [facility] Work Phone: Protein Test strip Ql (U)on 08-02-2021 Protein Ql (U) 30 mg/dl Negative [facility] Work Phone: Serum or plasma albumin josé miguel urement (mass/volume)on 08-02-2021 Albumin [Mass/Vol] 3.6 g/dL 3.2-5.0 [facility] Work Phone: Serum or plasma albumin/glob ulin mass ratioon 08-02-2021 Albumin/Globulin [Mass ratio] 1.0 {ratio} 0.9-2.4 [facility] Work Phone: Serum or plasma calcium josé miguel urement (mass/volume)on 08-02-2021 Calcium [Mass/Vol] 8.7 mg/dL 8.5-10.1 [facility] Work Phone: Serum or plasma creatinine m easurement (mass/volume)on 08-02-2021 Creatinine [Mass/Vol] 0.69 mg/dL 0.55-1.02 [facility] Work Phone: Comment on above: The validity of the calculated GFR & GFRAA in patients over 70 years has not been determined. Clinical correlation is essential. Serum or plasma urea nitroge n measurement (mass/volume)on 08-02-2021 Urea nitrogen [Mass/Vol] 17 mg/dL 7-18 [facility] Work Phone: Squamous epithelial cells de tection in urine sediment by light microscopyon 08-02-2021 Epithelial cells.squamous LM Ql (Urine sed) 0 SEEN /hpf [facility] Work Phone: Thin prep Papanicolaou smear with manual screeningon 08-02-2021 Thin prep Papanicolaou smear with manual screening 28 U/L 15-37 [facility] Work Phone: Comment on above: Slight Hemolysis, Re sult may be falsely increased. Thin prep Papanicolaou smear with manual screening 4 5-15 [facility] Work Phone: Urine blood detectionon RBC Ql (U) 25 /ul Negative [facility] Work Phone: RBC Ql (U) 0 SEEN /hpf [facility] Work Phone: Urine clarityon 08-02-2021 Clarity (U) Clear Clear [facility] Work Phone: Urine color determinationon 08-02-2021 Color (U) Yellow Yellow [facility] Work Phone: Urine glucose detectionon Glucose Ql (U) Normal mg/dl Normal [facility] Work Phone: Urine leukocyte esterase det ection by dipstickon 08-02-2021 Leukocyte esterase Test strip Ql (U) 25 /ul Negative [facility] Work Phone: Urine pHon 08-02-2021 pH (U) 6.0 [pH] [facility] Work Phone: Urine sediment bacteria coun t by microscopy (number/high power field)on 08-02-2021 Bacteria LM.HPF (Urine sed) [#/Area] RARE /hpf None Seen [facility] Work Phone: Urine specific gravity measu rementon 08-02-2021 Specific gravity (U) [Rel density] 1.025 [facility] Work Phone: Urobilinogen Auto test strip Ql (U)on 08-02-2021 Urobilinogen Ql (U) 1 mg/dl Normal [facility] Work Phone: Vital Signs Date Time Vital Sign Value Performing Clinician Facility 12-17-2024 13:23-0400 Body height 157.[address] Zachery Lehman MD Work Phone: [facility] 12-17-2024 13:23-0400 Diastolic blood pressure 79 mm[Hg] Dr. Zachery Lehman MD Work Phone: [facility] 12-17-2024 13:23-0400 Heart rate 67 /min Dr. Zachery Lehman MD Work Phone: [facility] 12-17-2024 13:23-0400 Systolic blood pressure 113 mm[Hg] Dr. Zachery Lehman MD Work Phone: [facility] 07-26-2024 13:23-0400 Body height 157.5 cm Zachery Lehman MD Work Phone: [facility] 07-26-2024 13:23-0400 Body mass index (BMI) [Ratio] 21.03 kg/m2 Zachery Lehman MD Work Phone: [facility] 07-26-2024 13:23-0400 Body weight 52.16 kg Zachery Lehman MD Work Phone: [facility] 07-26-2024 13:23-0400 Diastolic blood pressure 72 mm[Hg] Zachery Lehman MD Work Phone: [facility] 07-26-2024 13:23-0400 Heart rate 67 /min Zachery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 07-26-2025 Urine microalbumin profile DTaP,Tdap,Td Vaccine (1 - Tdap) [facility] Comment on above: Postponed from 05/05 (Declined at this time) Start: 07-08-2025 Screening for malign ant neoplasm of lung Lung Cancer Screening [facility] Start: 11-29-2024 Influenza vaccination C [facility] Start: 09-27-2024 Influenza vaccination Influenza Vacc ine (#1) [facility] Comment on above: Postponed from 11/29 (Declined at this time) Start: 08-16-2024 End: 08-16-2024 Patient encounter procedure 08/16/2024 2:30 PM EDT Appointment Mammogram [address] [place] [address] Encounter for screening mammogram for malignant neoplasm of breast [Z12.31] Mammogram Comment on above: Encounter for screen ing mammogram for malignant neoplasm of breast [Z12.31] Start: 08-10-2024 Screening for malign ant neoplasm of breast Mammogram Screening [facility] Start: 07-26-2024 End: 10-25-2024 CBC W Auto Differential panel - Blood COMPLETE BLOOD COUNT AND DIFFERENTIAL Lab Routine Mixed hyperlipidemia Expected: 07/26/2024, Expires: 10/25/2024 [facility] Comment on above: Expected: 07/26/2024 , Expires: 10/25/2024 Start: 07-26-2024 End: 10-25-2024 Comprehensive metabolic 2000 panel - Serum or Plasma COMPREHENSIVE METABOLIC PANEL Lab Routine Mixed hyperlipidemia Expected: 07/26/2024, Expires: 10/25/2024 [facility] Comment on above: Expected: 07/26/2024 , Expires: 10/25/2024 Start: 07-26-2024 End: 10-25-2024 Lipid 1996 panel - Serum or Plasma LIPID PANEL, FASTING Lab Routine Mixed hyperlipidemia Expected: 07/26/2024, Expires: 10/25/2024 [facility] Comment on above: Expected: 07/26/2024 , Expires: 10/25/2024 Start: 07-26-2024 End: 07-26-2024 Patient encounter procedure 07/26/2024 1:20 PM EDT Office Visit [facility] [place] [address] [place] [address] Zachery Lehman MD [address] [place] [address] medicare wellness [facility] [place] Comment on above: medicare wellness Start: 07-24-2024 Anxiety Screening Anxiety Screening [facility] Start: 07-24-2024 Covid-19 Vaccine () Covid-19 Vaccine () [facility] Comment on above: Postponed from 11/29 (Declined at this time) Start: 07-24-2024 Depression Screening Depression Scre ening [facility] Start: 07-24-2024 Hepatitis B Vaccine (1 of 3 - 19+ 3-dose series) Hepatitis B Vaccine (1 of 3 - 19+ 3-dose series) [facility] Comment on above: Postponed from 11/16 (Declined at this time) Start: 07-24-2024 Screening for malign ant neoplasm of lung Lung Cancer Screening [facility] Comment on above: Postponed from 11/16 (Declined at this time) Start: 07-24-2024 Shingrix Vaccine (1 of 2) Shingrix Vaccine (1 of 2) [facility] Comment on above: Postponed from 11/16 (Declined at this time) Start: 07-24-2024 Urine microalbumin profile DTaP,Tdap,Td Vaccine (1 - Tdap) [facility] Comment on above: Postponed from 05/05 (Declined at this time) Start: 02-24-2024 Colonoscopy w/biopsy single/multiple COLONOSCOPY AND BIOPSY [facility] Start: 02-24-2024 Colsc flx w/rmvl of tumor polyp lesion snare tq COLONOSCOPY W/LESION REMOVAL [facility] Start: 02-24-2024 Egd transoral biopsy single/multiple EGD BIOPSY SINGLE/MULTIPLE [facility] Start: 02-24-2024 Patient discharge [facility] Start: 11-30-2023 Covid-19 Vaccine ( season) Covid-19 Vaccine ( season) [facility] Start: 11-30-2023 Covid-19 Vaccine ( season) Covid-19 Vaccine ( season) [facility] Start: 11-30-2023 Influenza vaccination [facility] Start: 10-24-2023 End: 10-24-2023 ambulatory 10/24/2023 2:00 PM EDT Results Only [facility] [address] [facility] [place] [place] [address] [facility] Start: 10-24-2023 End: 01-23-2024 Hepatitis C virus Ab [Presence] in Serum HEPATITIS C ANTIBODY IA WITH CONFIRMATION Lab Routine Need for hepatitis C screening test Expected: 10/24/2023, Expires: 01/23/2024 [facility] Comment on above: Expected: 10/24/2023 , Expires: 01/23/2024 Start: 10-24-2023 End: 01-23-2024 Lipid 1996 panel - Serum or Plasma LIPID PANEL BASIC Lab Routine Low HDL (under 40) Expected: 10/24/2023, Expires: 01/23/2024 [facility] Comment on above: Expected: 10/24/2023 , Expires: 01/23/2024 Start: 08-11-2023 End: 08-11-2023 Patient encounter procedure 08/11/2023 1:30 PM EDT Appointment Mammogram [address] [place] [address] Encounter for screening mammogram for malignant neoplasm of breast [Z12.31] Mammogram Comment on above: Encounter for screen ing mammogram for malignant neoplasm of breast [Z12.31] Start: 06-20-2023 End: 09-19-2023 CBC W Auto Differential panel - Blood CBC + DIFF Lab Routine Elevated LDL cholesterol level Restless legs Expected: 06/20/2023, Expires: 09/19/2023 [facility] Work Phone: Comment on above: Expected: 06/20/2023 , Expires: 09/19/2023 Start: 06-20-2023 End: 09-19-2023 Comprehensive metabolic 2000 panel - Serum or Plasma COMP METABOLIC PANEL Lab Routine Elevated LDL cholesterol level Restless legs Expected: 06/20/2023, Expires: 09/19/2023 [facility] Work Phone: Comment on above: Expected: 06/20/2023 , Expires: 09/19/2023 Start: 06-20-2023 End: 09-19-2023 Lipid 1996 panel - Serum or Plasma LIPID PANEL BASIC Lab Routine Elevated LDL cholesterol level Restless legs Expected: 06/20/2023, Expires: 09/19/2023 [facility] Work Phone: Comment on above: Expected: 06/20/2023 , Expires: 09/19/2023 Start: 05-15-2023 Mammography [facility] Start: 05-15-2023 Screening for malign ant neoplasm of breast Mammogram Screening [facility] Start: 04-30-2023 HEPATITIS B (1 of 3 - 3-dose series) HEPATITIS B (1 of 3 - 3-dose series) [facility] Comment on above: Postponed from 11/16 (Declined at this time) Start: 04-30-2023 Hepatitis B Vaccine (1 of 3 - 3-dose series) Hepatitis B Vaccine (1 of 3 - 3-dose series) [facility] Comment on above: Postponed from 11/16 (Declined at this time) Start: 03-31-2023 Depression Assessment Depression Ass essment [facility] Start: 03-17-2023 PAP TESTING PAP TESTING [facility] Start: 02-18-2023 Lipid 1996 panel - Serum or Plasma Lipid Screening [facility] Start: 02-18-2023 Lipid panel Lipid Screening [facility] Start: 02-18-2023 LIPID SCREEN LIPID SCREEN [facility] Start: 01-28-2023 COVID-19 VACCINE (#1) COVID-19 VACCI NE (#1) [facility] Comment on above: Postponed from 05/19 (Declined at this time) Start: 01-28-2023 SHINGRIX VACCINE (1 of 2) SHINGRIX VACCINE (1 of 2) [facility] Comment on above: Postponed from 11/16 (Declined at this time) Start: 01-28-2023 Urine microalbumin profile [facility] Comment on above: Postponed from 05/05 (Declined at this time) Start: 11-29-2022 Covid-19 Vaccine ( season) Covid-19 Vaccine ( season) [facility] Start: 11-29-2022 Influenza vaccination C [facility] Start: 09-27-2022 Influenza vaccination INFLUENZA (#1) [facility] Comment on above: Postponed from 11/29 (Declined at this time) Start: 05-15-2022 End: 05-15-2023 PELVIC US WHI PELVIC US WHI Anc Imaging Routine Abdominal bloating Expected: 05/15/2022, Expires: 05/15/2023 [facility] Work Phone: Comment on above: Expected: 05/15/2022 , Expires: 05/15/2023 Start: 04-30-2022 End: 06-30-2022 CBC panel - Blood by Automated count CBC Lab Routine Abdominal bloating Expected: 04/30/2022, Expires: 06/30/2022 [facility] Work Phone: Comment on above: Expected: 04/30/2022 , Expires: 06/30/2022 Start: 04-30-2022 End: 06-30-2022 Comprehensive metabolic 2000 panel - Serum or Plasma COMP METABOLIC PANEL Lab Routine Hyperlipidemia, mixed Abdominal bloating Expected: 04/30/2022, Expires: 06/30/2022 [facility] Work Phone: Comment on above: Expected: 04/30/2022 , Expires: 06/30/2022 Start: 04-30-2022 End: 06-30-2022 Hepatitis C virus Ab [Presence] in Serum HEP C AB IA W/CONF SCRN Lab Routine Special screening examination for viral disease Expected: 04/30/2022, Expires: 06/30/2022 [facility] Work Phone: Comment on above: Expected: 04/30/2022 , Expires: 06/30/2022 Start: 04-30-2022 End: 06-30-2022 Lipid 1996 panel - Serum or Plasma LIPID PANEL BASIC Lab Routine Hyperlipidemia, mixed Expected: 04/30/2022, Expires: 06/30/2022 [facility] Work Phone: Comment on above: Expected: 04/30/2022 , Expires: 06/30/2022 Start: 01-28-2022 End: 03-30-2022 CBC panel - Blood by Automated count CBC Lab Routine Restless leg syndrome Expected: 01/28/2022, Expires: 03/30/2022 [facility] Work Phone: Comment on above: Expected: 01/28/2022 , Expires: 03/30/2022 Start: 01-28-2022 End: 03-30-2022 Comprehensive metabolic 2000 panel - Serum or Plasma COMP METABOLIC PANEL Lab Routine Restless leg syndrome Expected: 01/28/2022, Expires: 03/30/2022 [facility] Work Phone: Comment on above: Expected: 01/28/2022 , Expires: 03/30/2022 Start: 01-28-2022 End: 03-30-2022 Ferritin [Mass/volume] in Serum or Plasma FERRITIN BLD Lab Routine Restless leg syndrome Expected: 01/28/2022, Expires: 03/30/2022 [facility] Work Phone: Comment on above: Expected: 01/28/2022 , Expires: 03/30/2022 Start: 01-28-2022 End: 03-30-2022 Iron and Iron binding capacity panel - Serum or Plasma IRON + TIBC Lab Routine Restless leg syndrome Expected: 01/28/2022, Expires: 03/30/2022 [facility] Work Phone: Comment on above: Expected: 01/28/2022 , Expires: 03/30/2022 Start: 01-28-2022 End: 03-30-2022 Lipid 1996 panel - Serum or Plasma LIPID PANEL BASIC Lab Routine Hyperlipidemia, mixed Expected: 01/28/2022, Expires: 03/30/2022 [facility] Work Phone: Comment on above: Expected: 01/28/2022 , Expires: 03/30/2022 Start: 11-29-2021 Influenza vaccination C [facility] Start: 03-31-2021 DEPRESSION ASSESSMENT DEPRESSION ASS ESSMENT [facility] Start: 02-18-2021 DIABETES SCREEN DIABETES SCREEN [facility] Start: 02-18-2021 Diabetes Screening Diabetes Screenin g [facility] Start: 09-19-2019 Adult depression screening assessment DEPRESSION SCREENING [facility] Start: 04-02-2019 COLORECTAL CANCER SCREENING COLORECTAL CANCER SCREENING [facility] Start: 04-02-2019 FECAL OCCULT BLOOD FECAL OCCULT BLOO D [facility] Start: 04-02-2019 Screening for malign ant neoplasm of colon [facility] Start: 03-17-2019 Mammography MAMMOGRAM [facility] Start: 02-18-2019 PNEUMOCOCCAL (2 - PCV) PNEUMOCOCCAL (2 - PCV) [facility] Start: 12-25-2015 HPV TESTING HPV TESTING [facility] Start: 11-17-2015 Influenza vaccination LUNG CANCER [facility] Start: 11-17-2015 Screening for malign ant neoplasm of lung Lung Cancer Screening [facility] Start: 11-17-2015 SHINGRIX VACCINE (1 of 2) SHINGRIX VACCINE (1 of 2) [facility] Start: 05-05-2013 Urine microalbumin profile DTaP,Tdap,Td Vaccine (1 - Tdap) [facility] Start: 2010 COLOGUARD (FIT-DNA) COLOGUARD (FIT-D NA) [facility] Start: 2010 Colonoscopy COLONOSCOPY [facility] Start: [address] COLONOGRAPHY [facility] Start: 2010 Screening for malign ant neoplasm of colon [facility] Start: 2010 SIGMOIDOSCOPY SIGMOIDOSCOPY [facility] Start: 1984 Hepatitis B Vaccine (1 of 3 - 19+ 3-dose series) Hepatitis B Vaccine (1 of 3 - 19+ 3-dose series) [facility] Start: 1984 Urine microalbumin profile DTAP,TDAP,TD (1 - Tdap) [facility] Start: 11-17-1983 HEPATITIS C SCREENING HEPATITIS C [facility] Start: 11-17-1983 Hepatitis C screening Hepatitis C [facility] Start: 11-17-1983 HIV SCREENING HIV SCREENING [facility] Start: 1970 COVID-19 VACCINE (#1) COVID-19 VACCI NE (#1) [facility] Start: 05-19-1966 COVID-19 VACCINE (#1) COVID-19 VACCI NE (#1) [facility] Start: 1965 HEPATITIS B (1 of 3 - 3-dose series) HEPATITIS B (1 of 3 - 3-dose series) [facility] COVID & INFLUENZA A/ B & RSV PCR, ROUTINE COVID & INFLUENZA A/B & RSV PCR, ROUTINE Microbiology Routine Viral illness Ordered: 05/21/2024 [facility] Work Phone: Comment on above: Ordered: 05/21/2024 End: 08-23-2024 DBT Breast - bilateral screening MISA SCREENING [facility]iology Routine Encounter for screening mammogram for malignant neoplasm of breast 1 Occurrences starting 07/25/2023 until 08/23/2024 [facility] Work Phone: Comment on above: 1 Occurrences starti ng 07/25/2023 until 08/23/2024 DBT Breast - bilater al screening MISA SCREENING [facility] Radiology Routine Encounter for screening mammogram for malignant neoplasm of breast 08/11/2023 1:57 PM EDT [facility] Work Phone: End: 08-25-2025 DBT Breast - bilateral screening MISA SCREENING [facility] Routine Encounter for screening mammogram for malignant neoplasm of breast 1 Occurrences starting 07/26/2024 until 08/25/2025 [facility] Work Phone: Comment on above: 1 Occurrences starti ng 07/26/2024 until 08/25/2025 DBT Breast - bilater al screening MISA SCREENING [facility] Radiology Routine Encounter for screening mammogram for malignant neoplasm of breast 08/16/2024 2:50 PM EDT [facility] Work Phone: Hemoglobin.gastroint est inal.lower [Presence] in Stool by Immunoassay FECAL OCCULT BLOOD TEST Lab Routine Screening for colon cancer Ordered: 04/30/2022 [facility] Work Phone: Comment on above: Ordered: 04/30/2022 Hemoglobin.gastroint est inal.lower [Presence] in Stool by Immunoassay IMMUNOCHEMICAL FECAL OCCULT BLOOD TEST Lab Routine Screening for colon cancer Ordered: 07/25/2023 [facility] Comment on above: Ordered: 07/25/2023 End: 05-30-2023 MISA SCREENING MISA SCREENING Radiology Routine Encounter for screening mammogram for malignant neoplasm of breast 1 Occurrences starting 04/30/2022 until 05/30/2023 [facility] Work Phone: Comment on above: 1 Occurrences starti ng 04/30/2022 until 05/30/2023 End: 07-17-2024 MG Breast Screening MISA SCREENING Radiology Routine Encounter for screening mammogram for breast cancer 1 Occurrences starting 06/18/2023 until 07/17/2024 [facility] Work Phone: Comment on above: 1 Occurrences starti ng 06/18/2023 until 07/17/2024 PAP FLUID CERVICAL SCREENING PAP FLUID CERVICAL SCREENING Lab Routine Encounter for routine gynecologic examination in Medicare patient Pap smear for cervical cancer screening 05/15/2022 3:45 PM EST [facility] Work Phone: Patient Education [facility] Work Phone: Patient referral [facility] Work Phone: End: 10-26-2022 Screening mammography bi 2-view breast inc cad MISA SCREENING Radiology Routine Encounter for screening mammogram for breast cancer 1 Occurrences starting 09/26/2021 until 10/26/2022 [facility] Work Phone: Comment on above: 1 Occurrences starti ng 09/26/2021 until 10/26/2022 End: 06-14-2023 Us transvaginal US FEMALE PELVIS TRANSVAG Radiology Routine Abdominal bloating 1 Occurrences starting 05/15/2022 until 06/14/2023 [facility] Work Phone: Comment on above: 1 Occurrences starti ng 05/15/2022 until 06/14/2023 [facility] Immunizations Immunization Date Immunization Notes Care Provider Momo silver 04-30-2022 pneumococcal Conjuga te, unspecified formulation [facility] Work Phone: [facility] Work Phone: 04-30-2022 pneumococcal (PCV20) vaccine, 20 valent (PREVNAR 20) [facility] Work Phone: [facility] 02-18-2018 influenza, injectabl e, quadrivalent, contains preservative Zachery Lehman MD Work Phone: [facility] 02-18-2018 pneumococcal polysaccharide vaccine, 23 valent Zachery Lehman MD Work Phone: [facility] 02-18-2018 influenza virus vacc ine, unspecified formulation Kailash Adhikari Work Phone: [facility] 05-24-2016 influenza, injectabl e, quadrivalent, preservative free VANESSA Plata PA-C Work Phone: [facility] 05-04-2013 tetanus and diphther ia toxoids, adsorbed, preservative free, for adult use (2 Lf of tetanus toxoid and 2 Lf of diphtheria toxoid) [facility] 02-28-2009 novel influenza-H1N1 -09, preservative-free, injectable VANESSA Plata PA-C Work Phone: [facility] Payers Date Payer Category Payer Private Health Insurance [id number] 2024 Medicare (Managed Care) [facility] DUAL COMPLETE PPO SNP [id number] 2024 Private Health Insurance [id number] 2024 Self-pay [id number] 2017 Medicaid MEDICAID [facility] MEDICAID [id number] 2017-Present [phone] [address] [place] [address] Medicaid [id number] 2017 Medicaid [id number] 2017 Medicare [place] [id number] 2017-Present [phone] [address] [place] [address] [facility] [id number] 2017 Medicare [id number] 2017 Medicare [id number] 2013 Medicaid [id number] 1965 Unknown [id number] 1965 Unknown [id number] 627 1965 Unknown [id number] 627 Medicare [id number] Unknown [id number] 462 Unknown [id number] 462 Unknown [id number] 462 Unknown [id number] 462 Unknown [id number] 462 Unknown [id number] 462 Unknown [id number] 462 Unknown [id number] 462 Social History Date Type Detail Facility Start: 08-02-2021 End: 06-24-2023 Tobacco smoking status NHIS Unknown if ever smoked [facility] Start: 12-03-2018 None [facility] Start: 12-03-2018 Spouse/ Signif icant Other [facility] Start: 08-02-2021 Cigarettes [facility] Start: 1965 Sex Assigned At Female [facility] Start: 12-24-2010 End: 10-13-2024 Tobacco smoking status NHIS Smokes tobacco daily [facility] History of tobacco use Cigarette Smoker C [facility] Start: 12-24-2010 End: 07-26-2024 Cigarettes smoked current (pack per day) - Reported 1 [facility] Work Phone: Start: 12-24-2010 End: 05-03-2024 Tobacco use and exposure Smokeless tobacco non-user [facility] Start: 01-25-2021 End: 05-21-2024 Alcohol intake Current non-drinker of alcohol (finding) [facility] Start: 1965 Sex Assigned At Not on file C [facility] Start: 01-18-2022 End: 01-28-2022 Exposure to SARS-CoV-2 (event) Not sure [facility] Start: 05-26-2022 End: 07-26-2024 Tobacco use panel [facility] Work Phone: Adult Depression Screening Assessment 0 [facility] Work Phone: Start: 06-20-2023 Gender identity Identifies as female gender (finding) [facility] Start: 06-20-2023 Sexual orientation Choose not to dis close [facility] Has the [employer], or [employer] threatened to shut off services in your home in past 12Mo No [facility] Are you now , , , , never or living with a partner? Living with partner [facility] How often to you hav e a drink containing alcohol? Never [facility] Do you feel stress - tense, restless, nervous, or anxious, or unable to sleep at night because your mind is troubled all the time - these days [OSQ] Only a little [facility] (I/We) worried wheraven er (my/our) food would run out before (I/we) got money to buy more. Sometimes true [facility] Tobacco smoking status [facility] Start: 12-05-2023 Tobacco smoking status Heavy t obacco smoker (finding) [facility] Start: 08-24-2023 End: 07-14-2024 Sex Female (finding) [facility] NEGATED: Highlighted row Not [facility] Goals Date Patient Goal Desired Activity /State Functional Status Date Assessment Result Facility 12-05-2023 Functional Status ID band on, Call device within reach, Bed in low position, Wheels locked, Bedside Cart Locked, Safety level maintained [facility] 12-05-2023 Functional Status [facility] 08-24-2023 Functional Status Independent [facility] 08-24-2023 Functional Status Ambulation in [place], Ambulation in Room [facility] 06-09-2014 Are you deaf, or do you have serious difficulty hearing No 06/09/2014 4:01 PM Za Morataya LPN No [facility] 06-09-2014 Are you blind, or do you have serious difficulty seeing, even when wearing glasses No 06/09/2014 4:01 PM Za Morataya LPN No [facility] 06-09-2014 Do you have serious difficulty walking or climbing stairs No 06/09/2014 4:01 PM Za Morataya LPN No [facility] 06-09-2014 Do you have difficul ty dressing or bathing No 06/09/2014 4:01 PM Za Morataya LPN No [facility] 06-09-2014 Because of a physica l, mental, or emotional condition, do you have difficulty doing errands alone such as visiting a physician's office or shopping No 06/09/2014 4:01 PM Za Morataya LPN No [facility] Mental Status Date Assessment Result Facility 02-24-2024 Cognitive function Voice/Name [facility] Work Phone: 12-05-2023 Mental Status Orientation Oriented x 4 [facility] 12-05-2023 Mental Status [facility] 08-24-2023 Mental Status Orientation Oriented x 4 [facility] 08-24-2023 Mental Status [facility] 06-09-2014 Because of a physica l, mental, or emotional condition, do you have serious difficulty concentrating, remembering, or making decisions No 06/09/2014 4:01 PM EDT Za Meza LPN No [facility] Clinical Notes 12-04-2011 to 12-17-2024 Bonnie Sumner Mammo Tech - 08/16/2024 2:30 PM EDTLZachery ulloa MD - 07/26/2024 1:39 PM EDTPatient InstructionsTelephone Encounter - Brittny Boykin LPN - 06/11/2024 12:13 PM EDT Note Date & Type Note Facility 12-17-2024 Progress note [facility] 08-16-2024 History of Presen t illness Narrative Radiology Service Progress Note PATIENT NAME: Dina Benito DATE OF SERVICE: August 16, 2024 TIME: 3:31 PM PATIENT IDENTITY VERIFICATION COMPLETED USING TWO (2) IDENTIFIERS: Name and Date of confirmed by patient verbally. FALL SCREENING: Has the patient had 2 falls in the last year or 1 fall with injury or currently using an Ambulatory Assistive Device (Walker, Cane, Wheelchair, Crutches, etc.)? No PATIENT GENDER DATA: Assigned female at . status: : No status: NO. PATIENT RELEVANT IMPLANT DATA REVIEWED: Not Applicable PATIENT PRESENTS WITH AN IMPLANTABLE OR ATTACHED RESEARCH EPIDEMIOLOGIST: No RADIOLOGY DEPARTMENT: Mammography PERIPHERAL IV DATA: Not applicable SIGNED BY: Aakash Kemp August 16, 2024 3:31 PM documented in this encounter [facility] 08-16-2024 Note HNO ID: [id number] Author: BONNIE SUMNER Mammo Tech Service: ? Author Type: Policy Change Clerks Supervisor Type: Progress Notes Filed: 08/16/2024 15:32 Note Text: Radiology Service Progress Note PATIENT NAME: Dina Benito DATE OF SERVICE: August 16, 2024 TIME: 3:31 PM PATIENT IDENTITY VERIFICATION COMPLETED USING TWO (2) IDENTIFIERS: Name and Date of confirmed by patient verbally. FALL SCREENING: Has the patient had 2 falls in the last year or 1 fall with injury or currently using an Ambulatory Assistive Device (Walker, Cane, Wheelchair, Crutches, etc.)? No PATIENT GENDER DATA: Assigned female at . status: : No status: NO. PATIENT RELEVANT IMPLANT DATA REVIEWED: Not Applicable PATIENT PRESENTS WITH AN IMPLANTABLE OR ATTACHED RESEARCH EPIDEMIOLOGIST: No RADIOLOGY DEPARTMENT: Mammography PERIPHERAL IV DATA: Not applicable SIGNED BY: Bonnie Sumner Decurate August 16, 2024 3:31 PM [facility] 07-26-2024 Note HNO ID: [id number] Author: ZACHERY LEHMAN MD Service: ? Author Type: Physician Type: Progress Notes Filed: 07/26/2024 13:59 Note Text: Dina Benito is a 58 year old female here for a Medicare wellness visit. Medicare Health Risk Assessment General Health "All right" Exercise: Minutes/Day no Exercise: Days/Week no Alcohol: Daily Use no Alcohol: Drinks/Day no Alcohol: 6 or more drinks no Feel off balance None. Concerns: Teeth/Dentures Is edentulous. Concerns: Sexual function declines Troubled by feelings no Frequency: Eating healthy diet Fair. ADLs requiring help none Safety precautions in home/vehicle no Smoke, vape, chews tobacco Smokes 1/2 ppd. -Discussed tobacco cessation, including risks of continued use. Offered assistance to help quit if patient desires. Difficulty hearing Has hearing aides. Difficulty seeing Wears glasses. Current Providers Specialists: I have reviewed specialist-related care of the patient in the medical record. Current care team: Patient Care Team: Zachery Lehman MD as PCP - General (Family Medicine) Rody Olsen APRN.KASH as Supervisor [employer] Clerks (Family Medicine) Za Riley APRN.KASH as Supervisor [employer]patch Clerks (Family Medicine) Outside specialists seen: Dr Vargas, pulmonary and Dr Godwin, uro operations manager, [facility]. Medical/Family history review Reviewed and updated problem list, medical/surgical/family/social history, medications, and allergies. Opioid use review Opioid Medications (last 90 days) No data to display Anxiety/Depression screening (Lower risk for depression) (Lower risk for anxiety) Recommendation: no further intervention at this time Cognitive screening 5/5 minicog Cognitive screening reviewed and No further action needed (score 3-5). Functional Observation Was the patient's Timed Up AND Go test unsteady or >= 12 seconds? No Advance Care Planning Patient did not wish or was not able to name a surrogate decision maker or provide an advance care plan Discussed health maintenance, including regular aerobic exercise, low fat diet, and periodic exams. Reviewed immunizations and cancer screening. REVIEW OF SYSTEMS GENERAL: No weight loss, malaise or fevers HEENT: Negative for frequent or significant headaches, No changes in hearing or vision, no nose bleeds or other nasal problems RESPIRATORY: Negative for cough, hemoptysis, wheezing, COPD, dyspnea or shortness of breath CARDIOVASCULAR: Negative for chest pain, leg swelling, hypertension, CHF or palpitations GI: No nausea, vomiting, or diarrhea SKIN: Negative for lesions, rash, and itching Measurements BP 118/72 Pulse 67 Ht 157.5 cm (5' 2.01") Wt 52.2 kg (115 lb) LMP 12/10/2011 SpO2 98% BMI 21.03 kg/m? Vision Screening: Follows with optometry/ophthalmology PHYSICAL EXAM: GEN: pleasant, no acute distress, alert HEENT: PERRL, EOMI, MMM NECK: supple, no lymphadenopathy, no thyromegaly HEART: regular rate, regular rhythm, no murmurs LUNGS: clear to auscultation, no wheezes or crackles, no increased WOB ABD: soft, non-distended, no masses palpated, non-tender EXT: no clubbing, no cyanosis, no edema ASSESSMENT/PLAN: 1. Medicare annual wellness visit, initial - ICD9: V70.0, ICD10: Z00.00 (primary diagnosis) - Counseled on healthy diet and regular exercise 2. Screening for depression - ICD9: V79.0, ICD10: Z13.31 - DEPRESSION SCREENING 3. Encounter for screening examination for other mental health and behavioral disorders - ICD9: V79.8, ICD10: Z13.39 - ANXIETY SCREENING 4. Encounter for screening mammogram for malignant neoplasm of breast - ICD9: V76.12, ICD10: Z12.31 - MISA SCREENING W ADAN 5. Mixed hyperlipidemia - ICD9: 272.2, ICD10: E78.2 - Controlled - Continue current medications - Counseled on healthy diet and regular exercise - COMPLETE BLOOD COUNT AND DIFFERENTIAL - COMPREHENSIVE METABOLIC PANEL - LIPID PANEL, FASTING Zachery Lehman MD [facility] 07-26-2024 History of Presen t illness Narrative Images from the original note were not included. Dina Benito is a 58 year old female here for a Medicare wellness visit. Medicare Health Risk Assessment General Health "All right" Exercise: Minutes/Day no Exercise: Days/Week no Alcohol: Daily Use no Alcohol: Drinks/Day no Alcohol: 6 or more drinks no Feel off balance None. Concerns: Teeth/Dentures Is edentulous. Concerns: Sexual function declines Troubled by feelings no Frequency: Eating healthy diet Fair. ADLs requiring help none Safety precautions in home/vehicle no Smoke, vape, chews tobacco Smokes 1/2 ppd. -Discussed tobacco cessation, including risks of continued use. Offered assistance to help quit if patient desires. Difficulty hearing Has hearing aides. Difficulty seeing Wears glasses. Current Providers Specialists: I have reviewed specialist-related care of the patient in the medical record. Current care team: Patient Care Team: Zachery Lehman MD as PCP - General (Family Medicine) Rody Olsen APRN.KASH as Supervisor [employer]er[employer] (Family Medicine) Za Riley APRN.CNP as Supervisor [employer]er[employer] (Family Medicine) Outside specialists seen: Dr Vargas, pulmonary and Dr Godwin, uro operations manager, [facility]. Medical/Family history review Reviewed and updated problem list, medical/surgical/family/social history, medications, and allergies. Opioid use review Opioid Medications (last 90 days) No data to display Anxiety/Depression screening (Lower risk for depression) (Lower risk for anxiety) Recommendation: no further intervention at this time Cognitive screening 5/5 minicog Cognitive screening reviewed and No further action needed (score 3-5). Functional Observation Was the patient's Timed Up & Go test unsteady or >= 12 seconds? No Advance Care Planning Patient did not wish or was not able to name a surrogate decision maker or provide an advance care plan Discussed health maintenance, including regular aerobic exercise, low fat diet, and periodic exams. Reviewed immunizations and cancer screening. REVIEW OF SYSTEMS GENERAL: No weight loss, malaise or fevers HEENT: Negative for frequent or significant headaches, No changes in hearing or vision, no nose bleeds or other nasal problems RESPIRATORY: Negative for cough, hemoptysis, wheezing, COPD, dyspnea or shortness of breath CARDIOVASCULAR: Negative for chest pain, leg swelling, hypertension, CHF or palpitations GI: No nausea, vomiting, or diarrhea SKIN: Negative for lesions, rash, and itching Measurements BP 118/72 Pulse 67 Ht 157.5 cm (5' 2.01") Wt 52.2 kg (115 lb) LMP 12/10/2011 SpO2 98% BMI 21.03 kg/m Vision Screening: Follows with optometry/ophthalmology PHYSICAL EXAM: GEN: pleasant, no acute distress, alert HEENT: PERRL, EOMI, MMM NECK: supple, no lymphadenopathy, no thyromegaly HEART: regular rate, regular rhythm, no murmurs LUNGS: clear to auscultation, no wheezes or crackles, no increased WOB ABD: soft, non-distended, no masses palpated, non-tender EXT: no clubbing, no cyanosis, no edema ASSESSMENT/PLAN: 1. Medicare annual wellness visit, initial - ICD9: V70.0, ICD10: Z00.00 (primary diagnosis) - Counseled on healthy diet and regular exercise 2. Screening for depression - ICD9: V79.0, ICD10: Z13.31 - DEPRESSION SCREENING 3. Encounter for screening examination for other mental health and behavioral disorders - ICD9: V79.8, ICD10: Z13.39 - ANXIETY SCREENING 4. Encounter for screening mammogram for malignant neoplasm of breast - ICD9: V76.12, ICD10: Z12.31 - MISA SCREENING W ADAN 5. Mixed hyperlipidemia - ICD9: 272.2, ICD10: E78.2 - Controlled - Continue current medications - Counseled on healthy diet and regular exercise - COMPLETE BLOOD COUNT AND DIFFERENTIAL - COMPREHENSIVE METABOLIC PANEL - LIPID PANEL, FASTING Zachery Lehman MD documented in this encounter [facility] 07-26-2024 Instructions Zachery Lehman MD - 07/26/2024 1:39 PM EDT Screening schedule The following prevention plan is recommended: Hepatitis B Vaccine(1 of 3 - 19+ 3-dose series) Never done DTaP,Tdap,Td Vaccine(1 - Tdap) due on 05/05/2013 Lung Cancer Screening Never done Shingrix Vaccine(1 of 2) Never done Covid-19 Vaccine() Never done Depression Screening due on 07/24/2024 Anxiety Screening due on 07/24/2024 Mammogram Screening due on 08/10/2024 WHAT YOU CAN DO TO PREVENT FALLS Many falls can be prevented. By making some changes, you can lower your chances of falling. Four things YOU can do to prevent falls for you* and your caregiver 1. Begin a regular exercise program Exercise is one of the most important ways to lower your chances of falling. It makes you stronger and helps you feel better. Exercises that improve balance and coordination (like Bartolome Chi) are the most helpful. Lack of exercise leads to weakness and increases your chances of falling. Ask your doctor or health care provider about the best type of exercise program for you. 2. Have your health care provider review your medicines Have your doctor or pharmacist review all the medicines you take, even [id number] medicines. As you get older, the way medicines work in your body can change. Some medicines, or combinations of medicines, can make you sleepy or dizzy and can cause you to fall. 3. Have your vision checked Have your eyes checked by an eye doctor at least once a year. You may be wearing the wrong glasses or have a condition like glaucoma or cataracts that limits your vision. Poor vision can increase your chances of falling. 4. Make your home safer About half of all falls happen at home. To make your home safer: Remove things you can trip over (like papers, books, clothes, and shoes) from stairs and places where you walk. Remove small throw rugs or use double-sided tape to keep the rugs from slipping. Keep items you use often in cabinets you can reach easily without using a step stool. Have grab bars put in next to your toilet and in the tub or shower. Use non-slip mats in the bathtub and on shower floors. Improve the lighting in your home. As you get older, you need brighter lights to see well. Hang light-weight curtains or shades to reduce glare. Have handrails and lights put in on all staircases. Wear shoes both inside and outside the house. Avoid going barefoot or wearing slippers. For more information, contact: Centers for Disease Control and Prevention www.cdc.gov/injury * This information may not apply if you have certain medical conditions. documented in this encounter [facility] 07-09-2024 Radiology Diagnostic study note [facility] Imaging Services [address] [place] [address] Lung Screening MR#: [id number] Acct: [id number] Name: DINA BENITO Rep #: [id number] : 1965 F 58 From: Roslyn Hernandez MD PCP: Dr. Zachery Lehman MD Status: AMINA ARREDONDO Study:Low Dose CT Lung Screening Date of Exam : 07/08/24 Exam# [id number] Ordering Dr: Geeta Vargas MD EXAM: CT Chest, Lung Cancer Screening Without Intravenous Contrast CLINICAL INDICATION: HX NICOTINE DEPENDENCE TECHNIQUE: Axial computed tomography images of the chest without intravenous contrast using low dose (LDCT) lung cancer screening protocol. This CT exam was performed using one or more of the following dose reduction techniques: automated exposure control, adjustment of the mA and/or kV according to patient size, and/or use ofiterative reconstruction technique. COMPARISON: No relevant prior studies available. FINDINGS: LUNGS AND PLEURAL SPACES: Bilateral apical scarring, some of which has a nodular configuration measuring up to 9 mm. Lung emphysema/COPD. 10 mm subpleural nodule of the lateral right middle lobe. Dependent atelectasis. No pneumothorax. No significant effusion. HEART: Unremarkable. No cardiomegaly. No significant pericardial effusion. No significant coronary artery calcifications. BONES/JOINTS: Unremarkable. No acute fracture. No dislocation. SOFT TISSUES: Unremarkable. VASCULATURE: Unremarkable. No thoracic aortic aneurysm. LYMPH NODES: Unremarkable. No enlarged lymph nodes. CT/Low Dose CT Lung Screening IMPRESSION: 1. Bilateral apical scarring, some of which has a nodular configuration measuring up to 9 mm. 2. 10 mm subpleural nodule of the lateral right middle lobe. 3. LUNG-RADS 3: Probably benign. Continue low-dose CT screening of the chest in 6 months is recommended. Reading Location: [facility] CC: Dr. Geeta Vargas MD; Dr. Zachery Lehman MD ~ Search Engine Optimization Manager: Signed [facility] 06-11-2024 Telephone encounter Note Spoke with Dr Longo and judson. Have message to give provider. [facility] 06-11-2024 Miscellaneous Notes Spoke with Dr Longo and judson. Have message to give provider. Called pt. Back at 4:55 when finished with ptaients. No answer. Please call back in the morning to see what is needed? Dr Vargas office calling wanted to talk to James Riley, he is in the office until 5 pm. Call [phone] opt 1 please. documented in this encounter [facility] 06-10-2024 Telephone encounter Note Called pt. Back at 4:55 when finished with ptaients. No answer. Please call back in the morning to see what is needed? [facility] Work Phone: 06-10-[address] Vargas office calling wanted to talk to James Riley, he is in the office until 5 pm. Call [phone] opt 1 please. [facility] 05-22-2024 Telephone encounter Note Viewed on [employer]. Brittney Judge MA [facility] 05-22-2024 Miscellaneous Notes Viewed on [employer]. Brittney Judge MA Please inform patient that she was COVID-19 positive. Out of therapeutic window for any antiviral treatment. Continue supportive therapies as discussed. Tenzin Chavez APRN.KASH documented in this encounter [facility] 05-22-2024 Telephone encounter Note Please inform patient that she was COVID-19 positive. Out of therapeutic window for any antiviral treatment. Continue supportive therapies as discussed. Tenzin Chavez APRN.CNP [facility] 05-21-2024 History of Presen t illness Narrative Radiology Service Progress Note PATIENT NAME: Dina Benito DATE OF SERVICE: May 21, 2024 TIME: 2:45 PM PATIENT IDENTITY VERIFICATION COMPLETED USING TWO (2) IDENTIFIERS: Name and Date of confirmed by patient verbally. FALL SCREENING: Has the patient had 2 falls in the last year or 1 fall with injury or currently using an Ambulatory Assistive Device (Walker, Cane, Wheelchair, Crutches, etc.)? No PATIENT GENDER DATA: Assigned female at . status: : No status: NO. PATIENT RELEVANT IMPLANT DATA REVIEWED: Yes PATIENT PRESENTS WITH AN IMPLANTABLE OR ATTACHED RESEARCH EPIDEMIOLOGIST: No RADIOLOGY DEPARTMENT: General X-ray: Exam(s) Completed: Chest X-Ray PERIPHERAL IV DATA: Not applicable SIGNED BY: RT Grace(Esthela) May 21, 2024 2:45 PM documented in this encounter [facility] 05-21-2024 Note HNO ID: [id number] Author: KYLAH CABRERA RT(R) Service: ? Author Type: Policy Change Clerks Supervisor Type: Progress Notes Filed: 05/21/2024 14:52 Note Text: Radiology Service Progress Note PATIENT NAME: Dina Benito DATE OF SERVICE: May 21, 2024 TIME: 2:45 PM PATIENT IDENTITY VERIFICATION COMPLETED USING TWO (2) IDENTIFIERS: Name and Date of confirmed by patient verbally. FALL SCREENING: Has the patient had 2 falls in the last year or 1 fall with injury or currently using an Ambulatory Assistive Device (Walker, Cane, Wheelchair, Crutches, etc.)? No PATIENT GENDER DATA: Assigned female at . status: : No status: NO. PATIENT RELEVANT IMPLANT DATA REVIEWED: Yes PATIENT PRESENTS WITH AN IMPLANTABLE OR ATTACHED RESEARCH EPIDEMIOLOGIST: No RADIOLOGY DEPARTMENT: General X-ray: Exam(s) Completed: Chest X-Ray PERIPHERAL IV DATA: Not applicable SIGNED BY: RT Grace(Esthela) May 21, 2024 2:45 PM [facility] 05-21-2024 Note SARS-COV-2 (AGENT OF COVID-19) RNA: Detected INFLUENZA A RNA: Not detected INFLUENZA B RNA: Not detected RESPIRATORY SYNCYTIAL VIRUS (RSV) RNA: Not detected [facility] Comment on above: Performed By: #### [id number] ####[facility] LABCLIA [id number] [address] [place] [facility] 05-21-2024 Note HNO ID: [id number] Author: TENZIN CHAVEZ APRN.CNP Service: ? Author Type: Nurse Practitioner Type: Progress Notes Filed: 05/21/2024 15:17 Note Text: Subjective HPI Nontoxic-appearing 58-year-old female presents urgent care for reevaluation. States ongoing sore throat and cough. Was evaluated by me beginning of May. Placed on prednisone and doxycycline for COPD exacerbation. This did not help. Evaluated by ENT negative strep[facility] head and neck. Presents today for evaluation. Is concerned about COVID-19. States tested positive for COVID-19 her home test was negative. Denies any OTC medications. No difficulty swallowing and secretion decreased range of motion neck or trismus. No hemoptysis or productive cough. No chest pain. No fevers. Past medical history prescription medications allergies reviewed. .Patient presents with: Cough: Headache and sore throat x3 weeks PAST MEDICAL HISTORY Diagnosis Date Asthma COPD (chronic obstructive pulmonary disease) (HCC) Excessive or frequent menstruation Heavy periods Groin pain, left lower quadrant Groin pain, lower right quadrant Irregular menstrual cycle Irregular periods Restless leg PAST SURGICAL HISTORY Procedure Laterality Date ANES ESOPH THYRD LARYNX TRACH AND LYMPH NECK 1YR DILATION AND CURETTAGE DXAND/THER NONOBSTETRIC Dilation AND curettage Misc TUBAL LIGATION, 1993 ALLERGIES Requip [Ropinirole] MEDICATIONS GEMTESA 75 mg tablet Take 75 mg by mouth once daily. pantoprazole DR (PROTONIX) 40 mg tablet Take 1 tablet by mouth every afternoon. albuterol HFA (PROVENTIL HFA, VENTOLIN HFA) 90 mcg/actuation inhaler Inhale 2 Puffs as instructed every 4 hours as needed for wheezing/shortness of breath. albuterol (PROVENTIL) 2.5 mg /3 mL (0.083 %) nebulizer solution Use 3 mL via nebulizer every 6 hours as needed. gabapentin (NEURONTIN) 400 mg capsule Take 1 capsule by mouth daily at bedtime for 90 days. (Patient taking differently: Take 400 mg by mouth daily at bedtime. Uses as needed.) FAMILY HISTORY Problem Relation Age of Onset Heart Mother pacemaker Hypertension Mother Heart Father Quad bypass Diabetes Sister No Known Problems Brother COPD Brother Asthma Brother No Known Problems Brother No Known Problems Brother No Known Problems Daughter No Known Problems Son Social History Tobacco Use Smoking status: Every Day Current packs/day: 1.50 Average packs/day: 1.5 packs/day for 30.0 years (45.0 ttl pk-yrs) Types: Cigarettes Smokeless tobacco: Never Vaping Use Vaping status: Never Used Substance Use Topics Alcohol use: No Drug use: No .Patient presents with: Cough: Headache and sore throat x3 weeks PAST MEDICAL HISTORY Diagnosis Date Asthma COPD (chronic obstructive pulmonary disease) (HCC) Excessive or frequent menstruation Heavy periods Groin pain, left lower quadrant Groin pain, lower right quadrant Irregular menstrual cycle Irregular periods Restless leg PAST SURGICAL HISTORY Procedure Laterality Date ANES ESOPH THYRD LARYNX TRACH AND LYMPH NECK 1YR DILATION AND CURETTAGE DXAND/THER NONOBSTETRIC Dilation AND curettage Misc TUBAL LIGATION, 1993 ALLERGIES Requip [Ropinirole] MEDICATIONS GEMTESA 75 mg tablet Take 75 mg by mouth once daily. pantoprazole DR (PROTONIX) 40 mg tablet Take 1 tablet by mouth every afternoon. albuterol HFA (PROVENTIL HFA, VENTOLIN HFA) 90 mcg/actuation inhaler Inhale 2 Puffs as instructed every 4 hours as needed for wheezing/shortness of breath. albuterol (PROVENTIL) 2.5 mg /3 mL (0.083 %) nebulizer solution Use 3 mL via nebulizer every 6 hours as needed. gabapentin (NEURONTIN) 400 mg capsule Take 1 capsule by mouth daily at bedtime for 90 days. (Patient taking differently: Take 400 mg by mouth daily at bedtime. Uses as needed.) FAMILY HISTORY Problem Relation Age of Onset Heart Mother pacemaker Hypertension Mother Heart Father Quad bypass Diabetes Sister No Known Problems Brother COPD Brother Asthma Brother No Known Problems Brother No Known Problems Brother No Known Problems Daughter No Known Problems Son Social History Tobacco Use Smoking status: Every Day Current packs/day: 1.50 Average packs/day: 1.5 packs/day for 30.0 years (45.0 ttl pk-yrs) Types: Cigarettes Smokeless tobacco: Never Vaping Use Vaping status: Never Used Substance Use Topics Alcohol use: No Drug use: No BP 104/62 Pulse 76 Temp 37.1 ?C (98.7 ?F) Resp 16 Wt 54.8 kg (120 lb 13 oz) LMP 12/10/2011 SpO2 98% BMI 22.83 kg/m? Review of Systems Constitutional: Negative for chills, fever and malaise/fatigue. HENT: Positive for congestion and sore throat. Negative for ear discharge, ear pain and sinus pain. Eyes: Negative for blurred vision, pain, discharge and redness. Respiratory: Positive for cough. Negative for hemoptysis, sputu (more content not included)... [facility] 05-21-2024 History of Presen t illness Narrative Subjective HPI Nontoxic-appearing 58-year-old female presents urgent care for reevaluation. States ongoing sore throat and cough. Was evaluated by me beginning of May. Placed on prednisone and doxycycline for COPD exacerbation. This did not help. Evaluated by ENT negative strep. [facility] head and neck. Presents today for evaluation. Is concerned about COVID-19. States tested positive for COVID-19 her home test was negative. Denies any OTC medications. No difficulty swallowing and secretion decreased range of motion neck or trismus. No hemoptysis or productive cough. No chest pain. No fevers. Past medical history prescription medications allergies reviewed. .Patient presents with: Cough: Headache and sore throat x3 weeks PAST MEDICAL HISTORY Diagnosis Date Asthma COPD (chronic obstructive pulmonary disease) (HCC) Excessive or frequent menstruation Heavy periods Groin pain, left lower quadrant Groin pain, lower right quadrant Irregular menstrual cycle Irregular periods Restless leg PAST SURGICAL HISTORY Procedure Laterality Date ANES ESOPH THYRD LARYNX TRACH & LYMPH NECK 1YR DILATION & CURETTAGE DX&/THER NONOBSTETRIC Dilation & curettage Misc TUBAL LIGATION, 1993 ALLERGIES Requip [Ropinirole] MEDICATIONS GEMTESA 75 mg tablet Take 75 mg by mouth once daily. pantoprazole DR (PROTONIX) 40 mg tablet Take 1 tablet by mouth every afternoon. albuterol HFA (PROVENTIL HFA, VENTOLIN HFA) 90 mcg/actuation inhaler Inhale 2 Puffs as instructed every 4 hours as needed for wheezing/shortness of breath. albuterol (PROVENTIL) 2.5 mg /3 mL (0.083 %) nebulizer solution Use 3 mL via nebulizer every 6 hours as needed. gabapentin (NEURONTIN) 400 mg capsule Take 1 capsule by mouth daily at bedtime for 90 days. (Patient taking differently: Take 400 mg by mouth daily at bedtime. Uses as needed.) FAMILY HISTORY Problem Relation Age of Onset Heart Mother pacemaker Hypertension Mother Heart Father Quad bypass Diabetes Sister No Known Problems Brother COPD Brother Asthma Brother No Known Problems Brother No Known Problems Brother No Known Problems Daughter No Known Problems Son Social History Tobacco Use Smoking status: Every Day Current packs/day: 1.50 Average packs/day: 1.5 packs/day for 30.0 years (45.0 ttl pk-yrs) Types: Cigarettes Smokeless tobacco: Never Vaping Use Vaping status: Never Used Substance Use Topics Alcohol use: No Drug use: No .Patient presents with: Cough: Headache and sore throat x3 weeks PAST MEDICAL HISTORY Diagnosis Date Asthma COPD (chronic obstructive pulmonary disease) (HCC) Excessive or frequent menstruation Heavy periods Groin pain, left lower quadrant Groin pain, lower right quadrant Irregular menstrual cycle Irregular periods Restless leg PAST SURGICAL HISTORY Procedure Laterality Date ANES ESOPH THYRD LARYNX TRACH & LYMPH NECK 1YR DILATION & CURETTAGE DX&/THER NONOBSTETRIC Dilation & curettage Misc TUBAL LIGATION, 1993 ALLERGIES Requip [Ropinirole] MEDICATIONS GEMTESA 75 mg tablet Take 75 mg by mouth once daily. pantoprazole DR (PROTONIX) 40 mg tablet Take 1 tablet by mouth every afternoon. albuterol HFA (PROVENTIL HFA, VENTOLIN HFA) 90 mcg/actuation inhaler Inhale 2 Puffs as instructed every 4 hours as needed for wheezing/shortness of breath. albuterol (PROVENTIL) 2.5 mg /3 mL (0.083 %) nebulizer solution Use 3 mL via nebulizer every 6 hours as needed. gabapentin (NEURONTIN) 400 mg capsule Take 1 capsule by mouth daily at bedtime for 90 days. (Patient taking differently: Take 400 mg by mouth daily at bedtime. Uses as needed.) FAMILY HISTORY Problem Relation Age of Onset Heart Mother pacemaker Hypertension Mother Heart Father Quad bypass Diabetes Sister No Known Problems Brother COPD Brother Asthma Brother No Known Problems Brother No Known Problems Brother No Known Problems Daughter No Known Problems Son Social History Tobacco Use Smoking status: Every Day Current packs/day: 1.50 Average packs/day: 1.5 packs/day for 30.0 years (45.0 ttl pk-yrs) Types: Cigarettes Smokeless tobacco: Never Vaping Use Vaping status: Never Used Substance Use Topics Alcohol use: No Drug use: No BP 104/62 Pulse 76 Temp 37.1 C (98.7 F) Resp 16 Wt 54.8 kg (120 lb 13 oz) LMP 12/10/2011 SpO2 98% BMI 22.83 kg/m Review of Systems Constitutional: Negative for chills, fever and malaise/fatigue. HENT: Positive for congestion and sore throat. Negative for ear discharge, ear pain and sinus pain. Eyes: Negative for blurred vision, pain, discharge and redness. Respiratory: Positive for cough. Negative for hemoptysis, sputum production, shortness of breath, wheezing and stridor. Cardiovascular: Negative for chest pain. Gastrointestinal: Negative for abdominal pain, diarrhea, nausea and vomiting. Musculoskeletal: Negative for myalgias. Skin: Negative for itching and rash. Neurological: Negative for dizziness and headaches. Objective Physical Exam Constitutional: General: She is not in acute distress. Appearance: She is not diaphoretic. HENT: Head: Normocephalic. Jaw: No trismus, tenderness, swelling or pain on movement. Mouth/Throat: Mouth: Mucous membranes are moist. Pharynx: Oropharynx is clear. Uvula midline. No pharyngeal swelling, oropharyngeal exudate, posterior oropharyngeal erythema or uvula swelling. Eyes: Conjunctiva/sclera: Conjunctivae normal. Pupils: Pupils are equal, round, and reactive to light. Cardiovascular: Rate and Rhythm: Normal rate and regular rhythm. Heart sounds: Normal heart sounds. Pulmonary: Effort: Pulmonary effort is normal. No tachypnea, accessory muscle usage or respiratory distress. Breath sounds: Normal breath sounds. No stridor. No wheezing, rhonchi or rales. Abdominal: General: There is no distension. Palpations: Abdomen is soft. Tenderness: There is no abdominal tenderness. There is no guarding or rebound. Musculoskeletal: Cervical back: Normal range of motion and neck supple. No edema, erythema, rigidity or tenderness. No pain with movement. Normal range of motion. Lymphadenopathy: Cervical: No cervical adenopathy. Skin: General: Skin is warm and dry. Neurological: Mental Status: She is alert and oriented to person, place, and time. ASSESSMENT/PLAN: 1. Viral illness - ICD9: 079.99, ICD10: B34.9 (primary diagnosis) - COVID & INFLUENZA A/B & RSV PCR, ROUTINE 2. Acute cough - ICD9: 786.2, ICD10: R05.1 - XR CHEST 2V FRONTAL/LAT RESULT: Lines, tubes, and devices: None. Lungs and pleura: Scarring visualized in the bilateral upper lungs. Also noted is biapical scarring and subpleural opacities, likely post inflammatory. No definite consolidation. No lung mass. No pleural effusion. No pneumothorax. Cardiomediastinal silhouette: The cardiac silhouette is within normal limits. There appears be slight upward retraction of the bilateral wanda. Bones and soft tissues: Unremarkable. No evidence of bacterial infection noted today diagnosed with viral illness. COVID-19 test ordered per patient's request. Out of therapeutic window for any treatments. Follow-up with ENT as discussed viral etiology. No evidence of deep space infection. Patient was educated on supportive therapies. Patient will follow up with primary care provider as needed. Patient was instructed to immediately proceed to emergency room for any new, worsening, or symptoms lasting longer than anticipated. The patient's clinical presentation is otherwise unremarkable at this time. Based on exam and clinical finding, the patient is stable for discharge. Plan of care was discussed with patient. Patient verbalizes understanding and agrees to plan of care. This note was generated using [employer] software. It may contain errors in wording, punctuation, or spelling. Tenzin Chavez APRN.KASH documented in this encounter [facility] 05-21-2024 Telephone encounter Note Pts brother called in and reports Pt has had a cough x2 weeks, sore throat, and difficulty swallowing food. He states she has seen ENT and went to and gotten tested for Strep twice and it came and negative both times. He states her had Covid, the old strain. The Pt took a home Covid test and it was negative. He was asking if Pt could come in and be tested for Covid. I told him she could, but if the home test came back negative she may not have it or it could be too early to be detected. I let him know Dr Lehman had appointments open. He was going to call his sister and see what she wanted to do. I told him if she came in she would need to wear a mask. [facility] 05-21-2024 Miscellaneous Notes Pts brother called in and reports Pt has had a cough x2 weeks, sore throat, and difficulty swallowing food. He states she has seen ENT and went to [facility] and gotten tested for Strep twice and it came and negative both times. He states her had Covid, the old strain. The Pt took a home Covid test and it was negative. He was asking if Pt could come in and be tested for Covid. I told him she could, but if the home test came back negative she may not have it or it could be too early to be detected. I let him know Dr Lehman had appointments open. He was going to call his sister and see what she wanted to do. I told him if she came in she would need to wear a mask. documented in this encounter [facility] 05-18-2024 Note Exam Date Time Procedure Performing Provider Status 05/18/24 1:[address] Soft Tissue Neck w/ Contrast GEETA CACERES MD; Auth (Verified) [id number] ORIGINAL EXAMINATION: CT neck with intravenous contrast TECHNIQUE: CT of the neck was performed following the uneventful administration of 75 mL Isovue-300 intravenous contrast. Axial images were obtained through the neck with multiplanar reformats. Low dose CT acquisition technique included one of the following options: 1. Automated exposure control, 2. Adjustment of the MA and/or KV according to patient size, or 3. Use of iterative reconstruction. DICOM images are available. COMPARISON: None. HISTORY: ORDERING SYSTEM PROVIDED HISTORY: Reason for Exam: Pain in throat FINDINGS: Soft tissues: No infectious/inflammatory process, mass, or abscess. Aerodigestive tract: No primary lesion identified within the nasopharynx, oropharynx, hypopharynx, larynx, and proximal trachea. Salivary glands: Unremarkable. Thyroid: Unremarkable. Lymph nodes : There are non-specific scattered sub-centimeter lymph nodes in the neck bilaterally. No pathologically enlarged or morphologically suspicious adenopathy. Vessels: Unremarkable. Bones: No acute osseous pathology. Visualized lung apices: Moderately severe emphysema with diffuse biapical pleuroparenchymal scarring. Visualized brain parenchyma: No acute pathology. Paranasal sinuses: Clear. Mild leftward nasal septal deviation. Mastoids: Trace fluid in the left mastoid air cells. Clear on the right. Mild circumferential thickening of the upper esophagus. Additional comments: The patient is edentulous. IMPRESSION: 1. No primary lesion identified within the nasopharynx, oropharynx, hypopharynx, larynx, or proximal trachea. 2. No pathologically enlarged or morphologically suspicious adenopathy in the neck. 3. Mild circumferential thickening of the upper esophagus. Findings may reflect reflux esophagitis. Consider direct visualization. 4. Moderately severe emphysema with diffuse biapical pleuroparenchymal scarring. 5. Trace fluid in the left mastoid air cells. Interpreted by: Geeta Dai MD Preliminary Report By: Geeta Dai MD Electronically signed By Geeta Dai MD Dictated Date: 05/18/2024 2:00:12 PM Prelim Date: 05/18/2024 2:06:53 PM Sign Date: 05/18/2024 2:06:53 PM Ordering Provider: [facility]02-03-2025 NoteHNO ID: [id number] Author: TENZIN CHAVEZ APRN.DIPPER OPERATOR Service: ? Author Type: Nurse Practitioner Type: Progress Notes Filed: 05/03/2024 14:26 Note Text: Subjective HPI Nontoxic-appearing 58-year-old female with history of COPD and smoking presents urgent care chief complaint cough. Duration of symptom 1 week. Associated symptoms cough sore throat headache runny nose. States cough is became productive. OTC medications none. Sick contacts similar signs symptoms. Denies any fever chest pain or hemoptysis. Past medical history prescription medications allergies reviewed. No pleuritic pain. .Patient presents with: Cough: Cough, ST and HAWKINS x 1 week PAST MEDICAL HISTORY Diagnosis Date Asthma COPD (chronic obstructive pulmonary disease) (HCC) Excessive or frequent menstruation Heavy periods Groin pain, left lower quadrant Groin pain, lower right quadrant Irregular menstrual cycle Irregular periods Restless leg PAST SURGICAL HISTORY Procedure Laterality Date ANES ESOPH THYRD LARYNX TRACH AND LYMPH NECK 1YR DILATION AND CURETTAGE DXAND/THER NONOBSTETRIC Dilation AND curettage Misc TUBAL LIGATION, 1993 ALLERGIES Requip [Ropinirole] MEDICATIONS GEMTESA 75 mg tablet Take 75 mg by mouth once daily. pantoprazole DR (PROTONIX) 40 mg tablet Take 1 tablet by mouth every afternoon. albuterol HFA (PROVENTIL HFA, VENTOLIN HFA) 90 mcg/actuation inhaler Inhale 2 Puffs as instructed every 4 hours as needed for wheezing/shortness of breath. albuterol (PROVENTIL) 2.5 mg /3 mL (0.083 %) nebulizer solution Use 3 mL via nebulizer every 6 hours as needed. gabapentin (NEURONTIN) 400 mg capsule Take 1 capsule by mouth daily at bedtime for 90 days. (Patient taking differently: Take 400 mg by mouth daily at bedtime. Uses as needed.) FAMILY HISTORY Problem Relation Age of Onset Heart Mother pacemaker Hypertension Mother Heart Father Quad bypass Diabetes Sister No Known Problems Brother COPD Brother Asthma Brother No Known Problems Brother No Known Problems Brother No Known Problems Daughter No Known Problems Son Social History Tobacco Use Smoking status: Every Day Current packs/day: 1.50 Average packs/day: 1.5 packs/day for 30.0 years (45.0 ttl pk-yrs) Types: Cigarettes Smokeless tobacco: Never Vaping Use Vaping status: Never Used Substance Use Topics Alcohol use: No Drug use: No BP 102/64 Pulse 74 Temp 36.6 ?C (97.8 ?F) (Tympanic) Resp 18 Wt 54.4 kg (119 lb 14.9 oz) LMP 12/10/2011 SpO2 97% BMI 22.66 kg/m? Review of Systems Constitutional: Negative for chills, fever and malaise/fatigue. HENT: Positive for congestion and sore throat. Negative for ear discharge, ear pain and sinus pain. Eyes: Negative for blurred vision, pain, discharge and redness. Respiratory: Positive for cough and sputum production. Negative for hemoptysis, shortness of breath, wheezing and stridor. Cardiovascular: Negative for chest pain. Gastrointestinal: Negative for abdominal pain, diarrhea, nausea and vomiting. Musculoskeletal: Negative for myalgias. Skin: Negative for itching and rash. Neurological: Positive for headaches. Negative for dizziness. Objective Physical Exam Constitutional: General: She is not in acute distress. Appearance: She is not diaphoretic. HENT: Head: Normocephalic. Jaw: No trismus, tenderness, swelling or pain on movement. Nose: Congestion present. Mouth/Throat: Mouth: Mucous membranes are moist. Pharynx: Oropharynx is clear. Uvula midline. No pharyngeal swelling, oropharyngeal exudate, posterior oropharyngeal erythema or uvula swelling. Eyes: Conjunctiva/sclera: Conjunctivae normal. Pupils: Pupils are equal, round, and reactive to light. Cardiovascular: Rate and Rhythm: Normal rate and regular rhythm. Heart sounds: Normal heart sounds. Pulmonary: Effort: Pulmonary effort is normal. No tachypnea, accessory muscle usage or respiratory distress. Breath sounds: No stridor. Wheezing present. No rhonchi or rales. Abdominal: General: There is no distension. Palpations: Abdomen is soft. Tenderness: There is no abdominal tenderness. There is no guarding or rebound. Musculoskeletal: Cervical back: Normal range of motion and neck supple. No edema, erythema, rigidity or tenderness. No pain with movement. Normal range of motion. Lymphadenopathy: Cervical: No cervical adenopathy. Skin: General: Skin is warm and dry. Neurological: Mental Status: She is alert and oriented to person, place, and time. ASSESSMENT/PLAN: 1. Sore throat - ICD9: 462, ICD10: J02.9 (primary diagnosis) - STREP A MOLECULAR (POC) 2. COPD with exacerbation (HCC) - ICD9: 491.21, ICD10: J44.1 Strep test negative. Diagnosed with COPD exacerbation. Placed on prednisone and doxycycline. Patient was educated on supportive therapies. Patient will follow up with primary care provider as needed. Patient was instructed (more content not included)...[facility]02-03-2025 History of Present illness Narrative* Tenzin Chavez APRN.[facility] - 05/03/2024 2:04 PM EST Subjective HPI Nontoxic-appearing 58-year-old female with history of COPD and smoking presents urgent care chief complaint cough. Duration of symptom 1 week. Associated symptoms cough sore throat headache runny nose. States cough is became productive. OTC medications none. Sick contacts similar signs symptoms. Denies any fever chest pain or hemoptysis. Past medical history prescription medications allergies reviewed. No pleuritic pain. .Patient presents with: Cough: Cough, ST and HAWKINS x 1 week PAST MEDICAL HISTORY Diagnosis Date Asthma COPD (chronic obstructive pulmonary disease) (HCC) Excessive or frequent menstruation Heavy periods Groin pain, left lower quadrant Groin pain, lower right quadrant Irregular menstrual cycle Irregular periods Restless leg PAST SURGICAL HISTORY Procedure Laterality Date ANES ESOPH THYRD LARYNX TRACH & LYMPH NECK 1YR DILATION & CURETTAGE DX&/THER NONOBSTETRIC Dilation & curettage Misc TUBAL LIGATION, 1993 ALLERGIES Requip [Ropinirole] MEDICATIONS GEMTESA 75 mg tablet Take 75 mg by mouth once daily. pantoprazole DR (PROTONIX) 40 mg tablet Take 1 tablet by mouth every afternoon. albuterol HFA (PROVENTIL HFA, VENTOLIN HFA) 90 mcg/actuation inhaler Inhale 2 Puffs as instructed every 4 hours as needed for wheezing/shortness of breath. albuterol (PROVENTIL) 2.5 mg /3 mL (0.083 %) nebulizer solution Use 3 mL via nebulizer every 6 hours as needed. gabapentin (NEURONTIN) 400 mg capsule Take 1 capsule by mouth daily at bedtime for 90 days. (Patient taking differently: Take 400 mg by mouth daily at bedtime. Uses as needed.) FAMILY HISTORY Problem Relation Age of Onset Heart Mother pacemaker Hypertension Mother Heart Father Quad bypass Diabetes Sister No Known Problems Brother COPD Brother Asthma Brother No Known Problems Brother No Known Problems Brother No Known Problems Daughter No Known Problems Son Social History Tobacco Use Smoking status: Every Day Current packs/day: 1.50 Average packs/day: 1.5 packs/day for 30.0 years (45.0 ttl pk-yrs) Types: Cigarettes Smokeless tobacco: Never Vaping Use Vaping status: Never Used Substance Use Topics Alcohol use: No Drug use: No BP 102/64 Pulse 74 Temp 36.6 C (97.8 F) (Tympanic) Resp 18 Wt 54.4 kg (119 lb 14.9 oz) LMP 12/10/2011 SpO2 97% BMI 22.66 kg/m Review of Systems Constitutional: Negative for chills, fever and malaise/fatigue. HENT: Positive for congestion and sore throat. Negative for ear discharge, ear pain and sinus pain. Eyes: Negative for blurred vision, pain, discharge and redness. Respiratory: Positive for cough and sputum production. Negative for hemoptysis, shortness of breath, wheezing and stridor. Cardiovascular: Negative for chest pain. Gastrointestinal: Negative for abdominal pain, diarrhea, nausea and vomiting. Musculoskeletal: Negative for myalgias. Skin: Negative for itching and rash. Neurological: Positive for headaches. Negative for dizziness. Objective Physical Exam Constitutional: General: She is not in acute distress. Appearance: She is not diaphoretic. HENT: Head: Normocephalic. Jaw: No trismus, tenderness, swelling or pain on movement. Nose: Congestion present. Mouth/Throat: Mouth: Mucous membranes are moist. Pharynx: Oropharynx is clear. Uvula midline. No pharyngeal swelling, oropharyngeal exudate, posterior oropharyngeal erythema or uvula swelling. Eyes: Conjunctiva/sclera: Conjunctivae normal. Pupils: Pupils are equal, round, and reactive to light. Cardiovascular: Rate and Rhythm: Normal rate and regular rhythm. Heart sounds: Normal heart sounds. Pulmonary: Effort: Pulmonary effort is normal. No tachypnea, accessory muscle usage or respiratory distress. Breath sounds: No stridor. Wheezing present. No rhonchi or rales. Abdominal: General: There is no distension. Palpations: Abdomen is soft. Tenderness: There is no abdominal tenderness. There is no guarding or rebound. Musculoskeletal: Cervical back: Normal range of motion and neck supple. No edema, erythema, rigidity or tenderness. No pain with movement. Normal range of motion. Lymphadenopathy: Cervical: No cervical adenopathy. Skin: General: Skin is warm and dry. Neurological: Mental Status: She is alert and oriented to person, place, and time. ASSESSMENT/PLAN: 1. Sore throat - ICD9: 462, ICD10: J02.9 (primary diagnosis) - STREP A MOLECULAR (POC) 2. COPD with exacerbation (HCC) - ICD9: 491.21, ICD10: J44.1 Strep test negative. Diagnosed with COPD exacerbation. Placed on prednisone and doxycycline. Patient was educated on supportive therapies. Patient will follow up with primary care provider as needed. Patient was instructed to immediately proceed to emergency room for any new, worsening, or symptoms lasting longer than anticipated. The patient's clinical presentation is otherwise unremarkable at this time. Based on exam and clinical finding, the patient is stable for discharge. Plan of care was discussed with patient. Patient verbalizes understanding and agrees to plan of care. This note was generated using [employer] software. It may contain errors in wording, punctuation, or spelling. Tenzin Chavez APRN.DIPPER OPERATOR [facility] Telephone encounter Note * Telephone Encounter - Joon Marie RN - 03/05/2024 9:36 AM EST Patient returns call and message below reviewed. Patient to follow up with Dr. Vargas's office [facility]. Joon Marie RN [facility]12-[facility] Miscellaneous Notes* Telephone Encounter - Joon Marie RN - 03/05/2024 9:36 AM EST Patient returns call and message below reviewed. Patient to follow up with Dr. Vargas's office [facility]. Joon Marie RN * Telephone Encounter - Joon Marie RN - 03/05/2024 8:56 AM EST Consult faxed to number below. Called patient with no answer. Message left to return call. Joon Marie RN * Telephone Encounter - Za Riley APRN.CNP - 03/04/2024 5:40 PM EST Consult placed. Please fax as pt. requested * Telephone Encounter - Joon Marie RN - 03/04/2024 4:47 PM EST Patient calls to ask for a referral to pulmonology. Patient requesting referral be faxed to Dr. Vargas at [phone]. No recent referral on file. Asked patient if she was having symptoms and she said no just wanting referral for her COPD. I don't see a diagnosis of COPD on her problem list? Next appt with PCP 07/27/2023. Joon Marie RN documented [facility] Telephone encounter Note * Telephone Encounter - Joon Marie RN - 03/05/2024 8:56 AM EST Consult faxed to number below. Called patient with no answer. Message left to return call. Joon Marie RN [facility]12[facility] Telephone encounter Note* Telephone Encounter - Za Riley APRN.CNP - 03/04/2024 5:40 PM EST Consult placed. Please fax as pt. requested [facility] Telephone encounter Note* Telephone Encounter - Joon Marie RN - 03/04/2024 4:47 PM EST Patient calls to ask for a referral to pulmonology. Patient requesting referral be faxed to Dr. Vargas at [phone]. No recent referral on file. Asked patient if she was having symptoms and she said no just wanting referral for her COPD. I don't see a diagnosis of COPD on her problem list? Next appt with PCP 07/27/2023. Joon Marie RN [facility]12-[facility] Evaluation note* Diagnosis Onset Date Resolution Status Admit Date Epigastric pain acute March 04, 2024 2:20pm [facility] Work Phone: 1(198) 435-467611-26-2024 [facility] Medical Records Department [address] [place] [address] History Physical Exam 02/24/24 1433 MR#: [id number] Acct: [id number] Name: DINA BENITO Rep #: [id number] : 1965 58 From: Luis Friend DO PCP: Dr. Zachery Lehman MD Status:[facility] Location: [place] [address] History and Physical Date of Admission: 02/24/24 DINA BENITO, is a 58 F who presents to the office today for establishment with [facility]. Pt has a PMHx of tobacco use. She is here today for evaluation of abdominal pain. Her brother helps provide the HPI. She has been having abdominal/epigastric pain for a few years now. SHe has been seen by several providers in the ED in the past for this. She said she was given a medication for one month that did help but she unsure of what it was called. She feels the pain in constant and can cause her to be nauseous and vomit on occasion. She typically has a bm every other day and does not feel constipated SHe has never had an EGD or colonoscopy done before. She denies constipation, diarrhea, heartburn or melena. ROS Const Constitutional: No anorexia, fatigue, fever(s), weight change or sleep problems Eyes Eyes: No change in vision ENT ENT: No abnormal hearing, difficulty swallowing, mouth lesions, tongue swelling or throat swelling Resp Respiratory: No cough or shortness of breath Cardio Cardiology: No chest pain at rest, chest pain with exertion, shortness of breath or dyspnea on exertion Gastro GI: Positive for abdominal pain and nausea/dyspepsia; No difficulty swallowing Genitourinary-Female: No difficulty urinating or burning urination Musc Musculoskeletal: No joint pain, joint swelling, muscle weakness or decreased muscle mass Skin Skin: No hair loss in leg, yellowing of the eye, itchy eyes, rash, skin ulcer or skin swelling Neuro Neurology: No abnormal hearing, abnormal movements, confusion, unsteady gait/balance or memory loss Psych Psychiatric: No anxiety, No confusion and No memory loss Endo Endocrine: No fatigue or weight change Aller/Imm Allergy/Immunologic: No itchy eyes, throat swelling or tongue swelling Aleksandar/Lymp Hematologic/Lymphatic: No easy bleeding, easy bruising or enlarged lymph nodes Exam Const General: cooperative and comfortable Nutritional Appearance: average body habitus and well nourished [facility] Head: normal to inspection Ears: hearing grossly normal bilaterally Nose: external nose normal Face and sinus: normal facial exam Eyes General: appearance normal, both eyes and all related structures Neck Neck: normal visual inspection Chest Chest palpation inspection: normal inspection of the chest Resp Effort Inspection: normal respiratory effort GI Inspection: normal to inspection Auscultation: normal bowel sounds Percussion: normal to percussion Palpation: no hepatosplenomegaly Skin General: no rashes or lesions noted Neuro General: patient alert Extrem General: normal to inspection Psych Affect: normal affect Assessment and Plan Assessment and Plan (1) Abdominal symptoms: Plan: Pt is a 58 yo female here today for evaluation of upper abdominal pain. This has been going on for years now and has been seen in the ED on a few occasions. She has never had an EGD before and I discussed with her that this may be the best next step. She has never had a screening colonoscopy and she will undergo both these procedures at the same time. SHe is agreeable to this. Pending the results of the EGD we can form a treatment plan. Differential diagnoses includes GERD, gastritis, cholelithiasis, or gastric ulcer. -EGD and colonoscopy -Consider PPI therapy pending results -Consider CT abdomen pelvis or gallbladder US if scopes are inconclusive I have examined the patient and the H P has been reviewed. There are no clinical changes since date of exam. 02/24/24 1433 Cosigner Signature (if applicable): CC: Dr. Zachery Lehman MD; Luis Herndon, [facility] Hospital Discharge instructions Patient Education 12/05/2023 18:01:23 Esophagitis Esophagitis With esophagitis, the lining of the esophagus is inflamed. Do you often have burning pain in your chest? You may have esophagitis. This is when the lining of the esophagus becomes red and swollen (inflamed). The esophagus is the tube that connects your throat to your stomach. This sheet tells you more about esophagitis. It also explains your treatment options. Main types of esophagitis Reflux esophagitis. This is the more common type. It is caused by GERD (gastroesophageal reflux disease). Stomach contents with stomach acid flow back up into the esophagus. This happens over and over. It leads to inflammation. Risk factors can include: Being overweight Asthma Smoking Frequent vomiting Certain medicines (such as aspirin and other anti-inflammatories) Hiatal hernia Infectious esophagitis. This is caused by an infection. You are more at risk for this if you have aweakened immune system and poor nutrition. Antibiotic use can also be a factor. The infection is often due to the following: A type of fungus (typically ayaan) A virus, such as herpes simplex virus 1 (HSV-1) or cytomegalovirus (CMV) Eosinophilic esophagitis. Foods or other things around you can give you an allergic reaction. This triggers an immune response and leads to esophagitis. Pill-induced esophagitis. Certain types of medicines can cause inflammation and ulcers in the esophagus. These include doxycycline, aspirin, NSAIDs, alendronate, potassium, quinidine, iron. Symptoms of esophagitis The following symptoms can occur with esophagitis: Pain when swallowing, or trouble swallowing Pain behind your breastbone (heartburn) Acid regurgitation Chronic sore throat Gum Inflammation Cavities Bad breath Nausea Pain in your upper belly (abdomen) Bleeding (indicated by bright red vomit or black, tarry stool) These symptoms occur more often with reflux esophagitis: Coughing, wheezing, or asthma Hoarseness Diagnosis of esophagitis Your healthcare provider will ask about your health history and symptoms. You ll also be examined. Sometimes certain tests are needed. These may include: Upper endoscopy. A thin, flexible tube with a tiny light and camera is used. It is inserted throughthe mouth down into the esophagus. This lets the provider look for damage. A small sample of tissue(biopsy) may also be removed. The sample is sent to a lab for testing. Upper GI X-ray with barium. An X-ray is done after you drink a substance called barium. Barium may make problems in the esophagus easier to see on an x-ray. Esophageal pH. A soft, thin tube is passed into the esophagus through the nose or mouth for 24 hours. It measures the acid level in the esophagus. Esophageal manometry. A soft, thin tube is passed into the esophagus through the nose or mouth. It measures muscle contractions in the esophagus. Treatment of esophagitis Medicines. Different medicines can help treat esophagitis. The medicine used will depend on the type of esophagitis you have. Talk with your healthcare provider. Lifestyle changes. Making the following changes can help reduce irritation and ease your symptoms: Avoid spicy foods (pepper, chili powder, rothman). Also avoid hard foods (nuts, crackers, raw vegetables) and acidic foods and drinks (tomatoes, citrus fruits and juices). Other problem foods include chocolate, peppermint, nutmeg, and foods high in fat. Until you can swallow without pain, follow a combined liquid and soft diet. Try foods such as cooked cereals, mashed potatoes, and soups. Take small bites and chew your food thoroughly. Avoid large meals and heavy evening meals. Don't lie down within 2 to 3 hours of eating. Get to or stay at a healthy weight. Avoid alcohol, caffeine, and smoking or tobacco products. Clymer and floss your teeth Raise your upper body by 4 to 6 inches when lying in bed. This can be done using a foam wedge. Or put blocks under the legs at the head of your bed. Surgery. This may be needed for severe reflux esophagitis. Other noninvasive procedures to treat GERD and esophagitis are being studied. Your provider can tell you more. Why treatment is important Without treatment, esophagitis can get worse. This is especially true with severe reflux esophagitis. For instance, continued symptoms can cause scarring of the esophagus. Over time, this can cause anarrowing the esophagus (stricture). This can make it hard to pass food down to the stomach. As symptoms go on they can also cause changes in the lining of the esophagus. These changes can put you ian slightly higher risk of cancer of the esophagus. 2014-0704 [employer] [address] [place] [address]. All rights reserved. This information is not intended as a substitute for professional medical care. Always follow yourhealthcare professional's instructions. Follow Up Care 12/05/2023 16:03:10 With:ZACHERY LEHMAN MD Address: [facility] [address] [place] [address] [phone] When:2-[address] [facility] 09-06-2024 Emergency department Discharge summary Discharge Instructions Thank you for allowing [facility] to assist you with your healthcare needs. The following is importantdischarge information regarding your hospital visit. Diagnosis from Today's Visit Heartburn What to Do Next Instructions from Your Care Team You were evaluated in the Emergency Department today for epigastric pain, which is most likely due to irritation of the lining of your stomach. Your symptoms improved with medication in the ED. You can take Mylanta/Tums, which is available over the counter, to help manage your symptoms. Avoid spicyor acidic foods. Please follow up with your primary care physician within two days. Return to the Emergency Department if you experience shortness of breath, worsening or uncontrolledabdominal or chest pain, headache, light headedness, feeling faint, nausea, vomiting, bloody vomit or stools, black tarry stools, or any other concerning symptoms. Thank you for choosing us for your care. Share this: No qualifying data available. Post Acute Orders No qualifying data available. You Need to Schedule the Following Appointments Follow Up with ZACHERY LEHMAN MD When:Within 2-4 days Where:[facility] [address] [place] [address] [phone] Allergies NKA Medications Please ask your primary doctor or pharmacist before taking any other medication not listed, including over the counter drugs, herbal medications, vitamins and or supplements as they may interact withyour home medications. What How Much When Instructions Last Dose New famotidine (Pepcid 20 mg oral tablet) 1 tab(s) by mouth Once a day Printed Prescription Please take this list to your next doctor s visit. Bring all medications you take, including over the counter medications, herbals and other supplements with you to your doctor s visit. Patients and families are reminded to discard old lists and to update any records with all medication providers or retail pharmacies. Education Materials Esophagitis With esophagitis, the lining of the esophagus is inflamed. Do you often have burning pain in your chest? You may have esophagitis. This is when the lining of the esophagus becomes red and swollen (inflamed). The esophagus is the tube that connects your throat to your stomach. This sheet tells you more about esophagitis. It also explains your treatment options. Main types of esophagitis Reflux esophagitis. This is the more common type. It is caused by GERD (gastroesophageal reflux disease). Stomach contents with stomach acid flow back up into the esophagus. This happens over and over. It leads to inflammation. Risk factors can include: Being overweight Asthma Smoking Frequent vomiting Certain medicines (such as aspirin and other anti-inflammatories) Hiatal hernia Infectious esophagitis. This is caused by an infection. You are more at risk for this if you have aweakened immune system and poor nutrition. Antibiotic use can also be a factor. The infection is often due to the following: A type of fungus (typically ayaan) A virus, such as herpes simplex virus 1 (HSV-1) or cytomegalovirus (CMV) Eosinophilic esophagitis. Foods or other things around you can give you an allergic reaction. This triggers an immune response and leads to esophagitis. Pill-induced esophagitis. Certain types of medicines can cause inflammation and ulcers in the esophagus. These include doxycycline, aspirin, NSAIDs, alendronate, potassium, quinidine, iron. Symptoms of esophagitis The following symptoms can occur with esophagitis: Pain when swallowing, or trouble swallowing Pain behind your breastbone (heartburn) Acid regurgitation Chronic sore throat Gum Inflammation Cavities Bad breath Nausea Pain in your upper belly (abdomen) Bleeding (indicated by bright red vomit or black, tarry stool) These symptoms occur more often with reflux esophagitis: Coughing, wheezing, or asthma Hoarseness Diagnosis of esophagitis Your healthcare provider will ask about your health history and symptoms. You ll also be examined. Sometimes certain tests are needed. These may include: Upper endoscopy. A thin, flexible tube with a tiny light and camera is used. It is inserted throughthe mouth down into the esophagus. This lets the provider look for damage. A small sample of tissue(biopsy) may also be removed. The sample is sent to a lab for testing. Upper GI X-ray with barium. An X-ray is done after you drink a substance called barium. Barium may make problems in the esophagus easier to see on an x-ray. Esophageal pH. A soft, thin tube is passed into the esophagus through the nose or mouth for 24 hours. It measures the acid level in the esophagus. Esophageal manometry. A soft, thin tube is passed into the esophagus through the nose or mouth. It measures muscle contractions in the esophagus. Treatment of esophagitis Medicines. Different medicines can help treat esophagitis. The medicine used will depend on the type of esophagitis you have. Talk with your healthcare provider. Lifestyle changes. Making the following changes can help reduce irritation and ease your symptoms: Avoid spicy foods (pepper, chili powder, rothman). Also avoid hard foods (nuts, crackers, raw vegetables) and acidic foods and drinks (tomatoes, citrus fruits and juices). Other problem foods include chocolate, peppermint, nutmeg, and foods high in fat. Until you can swallow without pain, follow a combined liquid and soft diet. Try foods such as cooked cereals, mashed potatoes, and soups. Take small bites and chew your food thoroughly. Avoid large meals and heavy evening meals. Don't lie down within 2 to 3 hours of eating. Get to or stay at a healthy weight. Avoid alcohol, caffeine, and smoking or tobacco products. Clymer and floss your teeth Raise your upper body by 4 to 6 inches when lying in bed. This can be done using a foam wedge. Or put blocks under the legs at the head of your bed. Surgery. This may be needed for severe reflux esophagitis. Other noninvasive procedures to treat GERD and esophagitis are being studied. Your provider can tell you more. Why treatment is important Without treatment, esophagitis can get worse. This is especially true with severe reflux esophagitis. For instance, continued symptoms can cause scarring of the esophagus. Over time, this can cause anarrowing the esophagus (stricture). This can make it hard to pass food down to the stomach. As symptoms go on they can also cause changes in the lining of the esophagus. These changes can put you ian slightly higher risk of cancer of the esophagus. 8211-5956 [employer] [address] [place] [address]. All rights reserved. This information is not intended as a substitute for professional medical care. Always follow yourhealthcare professional's instructions. Additional Information VACCINATE! IT SAVES LIVES! Members of the community who have not yet received the COVID-19 vaccine and would like to receive it can visit one of [facility] vaccine clinics. There are many vaccine clinic locations within the [facility]. For locations and available times, please visit www.[email or web address].[place].gov/. It is important to note that some COVID mobile vaccine clinics are held outdoors and may be canceled in rainy or stormy conditions. To learn more about pediatric vaccinations (ages 5-11), we invite you to visit the [facility] webpage. [email or web address] learn more about the COVID-19 vaccine, we invite you to visit the CDC website for a list of frequently asked questions. https://www.cdc.gov/coronavirus/2019-ncov/vaccines/faq.html [facility] Patient Portal Access Instructions: Stay connected with your healthcare team and access your personal medical information anytime with the [employer] Patient Portal. If you would like a full copy of your medical records please contact the [facility] Medical Records Department Friday through Friday between 8a.m. and 4:30p.m. Please follow the directions below to access the portal: 1.Access the email account you provided upon registration to the [facility].2.Look for an invitation email from [facility].3.Open the email and access the invitation link: Accept Invitation to [facility]4.Fill in the required arshad to create your account. Sign into [email or web address] with your username and password that you created in the above steps to stay up to date. You can then view a summary of results, a summary of your visits, and the ability to download your summaries to your computer or send the information securely to a physician. Remember that your healthcare information is confidential, so carefully consider who you will allow to register on the [facility] [employer] Patient Portal for access to your information. You can also access the [employer] Patient Portal on the OnForce. Simply click on "Health Records" under "HealthData" and then click on the PaxV[employer] logo. HOW TO SAFELY DISPOSE OF PRESCRIPTION MEDICATIONS Please use one of the following methods to safely dispose of your unused medications. 1.Use a drug disposal kit: the drug disposal pouch allows you to safely discard your old and unuseddrugs. Ask your nurse to give you one when you are discharged.2.Visit a local take-back location: Many local pharmacies and police departments have programs that collect old and unwanted prescriptiondrugs. Call your local pharmacy or go to http://bit.AURSOS/3F6Hn4p to find one close to you.3.Make use of household items: Use cat litter or old coffee grounds to dispose medications if other options arenot available. Mix your drugs with these household products, seal them in an airtight container andthrow it into the garbage. Call [facility]: [phone] to be sure your drugs can be disposed of in this way. Some medicines may require a different approach.4.Never flush your medications down the toilet. IF YOU HAVE BEEN PRESCRIBED AN OPIOIDS FOR PAIN If you have been prescribed an opioid (such as hydrocodone, oxycodone or morphine), it is critical to understand the possible side effects and risks of opioid pain medications. Even when taken as directed, opioids can have several side effects including: Tolerance, meaning you might need to take more of a medication for the same pain relief. Nausea, vomiting and/or constipation. Sleepiness, dizziness, dry mouth, confusion, depression or itching. Physical dependence, meaning you have withdrawal symptoms when a medication is stopped ? this can develop within a few days. KNOW YOUR RESPONSIBILITIES It is important to know exactly how much and how often to take the opioid pain medications you are prescribed. Never take opioids in higher amounts or more often than prescribed. Do not combine opioids with alcohol or other drugs that cause drowsiness, such as benzodiazepines, also known as benzos,including diazepam and alprazolam, muscle relaxants or sleep aids. Never sell or share prescriptionopioids. This is illegal. Store opioids in a secure place and out of reach of others (including children, family, friends and visitors). The last page(s) of this document has been signed and retained as a CHART COPY Signatures Patient Education Materials Esophagitis Medication Leaflets My discharge plan and instructions have been reviewed and explained to me and I,JESUS DINA understand my current condition and have read and understand these discharge instructions. I have received a written copy of the plan/instructions. If I have questions, I am aware that I should contact my doctor. Patient/Diet Technician Registered Signature: Date/Time: Relationship to Patient: Witness Name/Signature: Date/Time: [facility] Felisasha [id number] Emergency department Discharge summary Discharge Instructions Thank you for allowing [facility] to assist you with your healthcare needs. The following is importantdischarge information regarding your hospital visit. Diagnosis from Today's Visit Heartburn What to Do Next Instructions from Your Care Team You were evaluated in the Emergency Department today for epigastric pain, which is most likely due to irritation of the lining of your stomach. Your symptoms improved with medication in the ED. You can take Mylanta/Tums, which is available over the counter, to help manage your symptoms. Avoid spicyor acidic foods. Please follow up with your primary care physician within two days. Return to the Emergency Department if you experience shortness of breath, worsening or uncontrolledabdominal or chest pain, headache, light headedness, feeling faint, nausea, vomiting, bloody vomit or stools, black tarry stools, or any other concerning symptoms. Thank you for choosing us for your care. Share this: No qualifying data available. Post Acute Orders No qualifying data available. You Need to Schedule the Following Appointments Follow Up with ZACHERY LEHMAN MD When:Within 2-4 days [facility] [address] [place] [address]- [phone] Allergies NKA Medications Please ask your primary doctor or pharmacist before taking any other medication not listed, including over the counter drugs, herbal medications, vitamins and or supplements as they may interact withyour home medications. What How Much When Instructions Last Dose New famotidine (Pepcid 20 mg oral tablet) 1 tab(s) by mouth Once a day Printed Prescription Please take this list to your next doctor s visit. Bring all medications you take, including over the counter medications, herbals and other supplements with you to your doctor s visit. Patients and families are reminded to discard old lists and to update any records with all medication providers or retail pharmacies. Education Materials Esophagitis With esophagitis, the lining of the esophagus is inflamed. Do you often have burning pain in your chest? You may have esophagitis. This is when the lining of the esophagus becomes red and swollen (inflamed). The esophagus is the tube that connects your throat to your stomach. This sheet tells you more about esophagitis. It also explains your treatment options. Main types of esophagitis Reflux esophagitis. This is the more common type. It is caused by GERD (gastroesophageal reflux disease). Stomach contents with stomach acid flow back up into the esophagus. This happens over and over. It leads to inflammation. Risk factors can include: Being overweight Asthma Smoking Frequent vomiting Certain medicines (such as aspirin and other anti-inflammatories) Hiatal hernia Infectious esophagitis. This is caused by an infection. You are more at risk for this if you have aweakened immune system and poor nutrition. Antibiotic use can also be a factor. The infection is often due to the following: A type of fungus (typically ayaan) A virus, such as herpes simplex virus 1 (HSV-1) or cytomegalovirus (CMV) Eosinophilic esophagitis. Foods or other things around you can give you an allergic reaction. This triggers an immune response and leads to esophagitis. Pill-induced esophagitis. Certain types of medicines can cause inflammation and ulcers in the esophagus. These include doxycycline, aspirin, NSAIDs, alendronate, potassium, quinidine, iron. Symptoms of esophagitis The following symptoms can occur with esophagitis: Pain when swallowing, or trouble swallowing Pain behind your breastbone (heartburn) Acid regurgitation Chronic sore throat Gum Inflammation Cavities Bad breath Nausea Pain in your upper belly (abdomen) Bleeding (indicated by bright red vomit or black, tarry stool) These symptoms occur more often with reflux esophagitis: Coughing, wheezing, or asthma Hoarseness Diagnosis of esophagitis Your healthcare provider will ask about your health history and symptoms. You ll also be examined. Sometimes certain tests are needed. These may include: Upper endoscopy. A thin, flexible tube with a tiny light and camera is used. It is inserted throughthe mouth down into the esophagus. This lets the provider look for damage. A small sample of tissue(biopsy) may also be removed. The sample is sent to a lab for testing. Upper GI X-ray with barium. An X-ray is done after you drink a substance called barium. Barium may make problems in the esophagus easier to see on an x-ray. Esophageal pH. A soft, thin tube is passed into the esophagus through the nose or mouth for 24 hours. It measures the acid level in the esophagus. Esophageal manometry. A soft, thin tube is passed into the esophagus through the nose or mouth. It measures muscle contractions in the esophagus. Treatment of esophagitis Medicines. Different medicines can help treat esophagitis. The medicine used will depend on the type of esophagitis you have. Talk with your healthcare provider. Lifestyle changes. Making the following changes can help reduce irritation and ease your symptoms: Avoid spicy foods (pepper, chili powder, rothman). Also avoid hard foods (nuts, crackers, raw vegetables) and acidic foods and drinks (tomatoes, citrus fruits and juices). Other problem foods include chocolate, peppermint, nutmeg, and foods high in fat. Until you can swallow without pain, follow a combined liquid and soft diet. Try foods such as cooked cereals, mashed potatoes, and soups. Take small bites and chew your food thoroughly. Avoid large meals and heavy evening meals. Don't lie down within 2 to 3 hours of eating. Get to or stay at a healthy weight. Avoid alcohol, caffeine, and smoking or tobacco products. Clymer and floss your teeth Raise your upper body by 4 to 6 inches when lying in bed. This can be done using a foam wedge. Or put blocks under the legs at the head of your bed. Surgery. This may be needed for severe reflux esophagitis. Other noninvasive procedures to treat GERD and esophagitis are being studied. Your provider can tell you more. Why treatment is important Without treatment, esophagitis can get worse. This is especially true with severe reflux esophagitis. For instance, continued symptoms can cause scarring of the esophagus. Over time, this can cause anarrowing the esophagus (stricture). This can make it hard to pass food down to the stomach. As symptoms go on they can also cause changes in the lining of the esophagus. These changes can put you ian slightly higher risk of cancer of the esophagus. 9928-2822 [employer] [address] [place] [address]. All rights reserved. This information is not intended as a substitute for professional medical care. Always follow yourhealthcare professional's instructions. Additional Information VACCINATE! IT SAVES LIVES! Members of the community who have not yet received the COVID-19 vaccine and would like to receive it can visit one of [facility] vaccine clinics. There are many vaccine clinic locations within the [facility]. For locations and available times, please visit [email or web address]/. It is important to note that some COVID mobile vaccine clinics are held outdoors and may be canceled in rainy or stormy conditions. To learn more about pediatric vaccinations (ages 5-11), we invite you to visit the [facility] webpage. [email or web address]/[email or web address] [email or web address] learn more about the COVID-19 vaccine, we invite you to visit the CDC website for a list of frequently asked questions. https://www.cdc.gov/coronavirus/2019-ncov/vaccines/faq.html [facility] Patient Portal Access Instructions: Stay connected with your healthcare team and access your personal medical information anytime with the [facility] [employer] Patient Portal. If you would like a full copy of your medical records please contact the [facility] Medical Records Department Friday through Friday between 8a.m. and 4:30p.m. Please follow the directions below to access the portal: 1.Access the email account you provided upon registration to the [facility].2.Look for an invitation email from [facility].3.Open the email and access the invitation link: Accept Invitation to [facility]4.Fill in the required arshad to create your account. Sign into www.Serus with your username and password that you created in the above steps to stay up to date. You can then view a summary of results, a summary of your visits, and the ability to download your summaries to your computer or send the information securely to a physician. Remember that your healthcare information is confidential, so carefully consider who you will allow to register on the [employer] Patient Portal for access to your information. You can also access the [employer] Patient Portal on the OnForce. Simply click on "Health Records" under "HealthData" and then click on the [employer] logo. HOW TO SAFELY DISPOSE OF PRESCRIPTION MEDICATIONS Please use one of the following methods to safely dispose of your unused medications. 1.Use a drug disposal kit: the drug disposal pouch allows you to safely discard your old and unuseddrugs. Ask your nurse to give you one when you are discharged.2.Visit a local take-back location: Many local pharmacies and police departments have programs that collect old and unwanted prescriptiondrugs. Call your local pharmacy or go to http://Dropmysite.AURSOS/9V6Em0t to find one close to you.3.Make use of household items: Use cat litter or old coffee grounds to dispose medications if other options arenot available. Mix your drugs with these household products, seal them in an airtight container andthrow it into the garbage. Call [facility]: [phone] to be sure your drugs can be disposed of in this way. Some medicines may require a different approach.4.Never flush your medications down the toilet. IF YOU HAVE BEEN PRESCRIBED AN OPIOIDS FOR PAIN If you have been prescribed an opioid (such as hydrocodone, oxycodone or morphine), it is critical to understand the possible side effects and risks of opioid pain medications. Even when taken as directed, opioids can have several side effects including: Tolerance, meaning you might need to take more of a medication for the same pain relief. Nausea, vomiting and/or constipation. Sleepiness, dizziness, dry mouth, confusion, depression or itching. Physical dependence, meaning you have withdrawal symptoms when a medication is stopped ? this can develop within a few days. KNOW YOUR RESPONSIBILITIES It is important to know exactly how much and how often to take the opioid pain medications you are prescribed. Never take opioids in higher amounts or more often than prescribed. Do not combine opioids with alcohol or other drugs that cause drowsiness, such as benzodiazepines, also known as benzos, including diazepam and alprazolam, muscle relaxants or sleep aids. Never sell or share prescription opioids. This is illegal. Store opioids in a secure place and out of reach of others (including children, family, friends and visitors). The last page(s) of this document has been signed and retained as a CHART COPY Signatures Patient Education Materials Esophagitis Medication Leaflets My discharge plan and instructions have been reviewed and explained to me and I,DINA BENITO understand my current condition and have read and understand these discharge instructions. I have received a written copy of the plan/instructions. If I have questions, I am aware that I should contact my doctor. Patient/Diet Technician Registered Signature: Date/Time: Relationship to Patient: Witness Name/Signature: Date/Time: [facility]eli [id number] Emergency department Discharge summary Discharge Instructions Thank you for allowing [facility] to assist you with your healthcare needs. The following is importantdischarge information regarding your hospital visit. Diagnosis from Today's Visit Heartburn What to Do Next Instructions from Your Care Team You were evaluated in the Emergency Department today for epigastric pain, which is most likely due to irritation of the lining of your stomach. Your symptoms improved with medication in the ED. You can take Mylanta/Tums, which is available over the counter, to help manage your symptoms. Avoid spicyor acidic foods. Please follow up with your primary care physician within two days. Return to the Emergency Department if you experience shortness of breath, worsening or uncontrolledabdominal or chest pain, headache, light headedness, feeling faint, nausea, vomiting, bloody vomit or stools, black tarry stools, or any other concerning symptoms. Thank you for choosing us for your care. Share this: No qualifying data available. Post Acute Orders No qualifying data available. You Need to Schedule the Following Appointments Follow Up with ZACHERY LEHMAN MD When:Within 2-4 days Where:[facility] [address] [place] [phone] Allergies NKA Medications Please ask your primary doctor or pharmacist before taking any other medication not listed, including over the counter drugs, herbal medications, vitamins and or supplements as they may interact withyour home medications. What How Much When Instructions Last Dose New famotidine (Pepcid 20 mg oral tablet) 1 tab(s) by mouth Once a day Printed Prescription Please take this list to your next doctor s visit. Bring all medications you take, including over the counter medications, herbals and other supplements with you to your doctor s visit. Patients and families are reminded to discard old lists and to update any records with all medication providers or retail pharmacies. Education Materials Esophagitis With esophagitis, the lining of the esophagus is inflamed. Do you often have burning pain in your chest? You may have esophagitis. This is when the lining of the esophagus becomes red and swollen (inflamed). The esophagus is the tube that connects your throat to your stomach. This sheet tells you more about esophagitis. It also explains your treatment options. Main types of esophagitis Reflux esophagitis. This is the more common type. It is caused by GERD (gastroesophageal reflux disease). Stomach contents with stomach acid flow back up into the esophagus. This happens over and over. It leads to inflammation. Risk factors can include: Being overweight Asthma Smoking Frequent vomiting Certain medicines (such as aspirin and other anti-inflammatories) Hiatal hernia Infectious esophagitis. This is caused by an infection. You are more at risk for this if you have aweakened immune system and poor nutrition. Antibiotic use can also be a factor. The infection is often due to the following: A type of fungus (typically ayaan) A virus, such as herpes simplex virus 1 (HSV-1) or cytomegalovirus (CMV) Eosinophilic esophagitis. Foods or other things around you can give you an allergic reaction. This triggers an immune response and leads to esophagitis. Pill-induced esophagitis. Certain types of medicines can cause inflammation and ulcers in the esophagus. These include doxycycline, aspirin, NSAIDs, alendronate, potassium, quinidine, iron. Symptoms of esophagitis The following symptoms can occur with esophagitis: Pain when swallowing, or trouble swallowing Pain behind your breastbone (heartburn) Acid regurgitation Chronic sore throat Gum Inflammation Cavities Bad breath Nausea Pain in your upper belly (abdomen) Bleeding (indicated by bright red vomit or black, tarry stool) These symptoms occur more often with reflux esophagitis: Coughing, wheezing, or asthma Hoarseness Diagnosis of esophagitis Your healthcare provider will ask about your health history and symptoms. You ll also be examined. Sometimes certain tests are needed. These may include: Upper endoscopy. A thin, flexible tube with a tiny light and camera is used. It is inserted throughthe mouth down into the esophagus. This lets the provider look for damage. A small sample of tissue(biopsy) may also be removed. The sample is sent to a lab for testing. Upper GI X-ray with barium. An X-ray is done after you drink a substance called barium. Barium may make problems in the esophagus easier to see on an x-ray. Esophageal pH. A soft, thin tube is passed into the esophagus through the nose or mouth for 24 hours. It measures the acid level in the esophagus. Esophageal manometry. A soft, thin tube is passed into the esophagus through the nose or mouth. It measures muscle contractions in the esophagus. Treatment of esophagitis Medicines. Different medicines can help treat esophagitis. The medicine used will depend on the type of esophagitis you have. Talk with your healthcare provider. Lifestyle changes. Making the following changes can help reduce irritation and ease your symptoms: Avoid spicy foods (pepper, chili powder, rothman). Also avoid hard foods (nuts, crackers, raw vegetables) and acidic foods and drinks (tomatoes, citrus fruits and juices). Other problem foods include chocolate, peppermint, nutmeg, and foods high in fat. Until you can swallow without pain, follow a combined liquid and soft diet. Try foods such as cooked cereals, mashed potatoes, and soups. Take small bites and chew your food thoroughly. Avoid large meals and heavy evening meals. Don't lie down within 2 to 3 hours of eating. Get to or stay at a healthy weight. Avoid alcohol, caffeine, and smoking or tobacco products. Clymer and floss your teeth Raise your upper body by 4 to 6 inches when lying in bed. This can be done using a foam wedge. Or put blocks under the legs at the head of your bed. Surgery. This may be needed for severe reflux esophagitis. Other noninvasive procedures to treat GERD and esophagitis are being studied. Your provider can tell you more. Why treatment is important Without treatment, esophagitis can get worse. This is especially true with severe reflux esophagitis. For instance, continued symptoms can cause scarring of the esophagus. Over time, this can cause anarrowing the esophagus (stricture). This can make it hard to pass food down to the stomach. As symptoms go on they can also cause changes in the lining of the esophagus. These changes can put you ian slightly higher risk of cancer of the esophagus. 9254-2100 [employer] [address] [place] [address], [place] [address]. All rights reserved. This information is not intended as a substitute for professional medical care. Always follow yourhealthcare professional's instructions. Additional Information VACCINATE! IT SAVES LIVES! Members of the community who have not yet received the [employer]-19 vaccine and would like to receive it can visit one of [facility] vaccine clinics. There are many vaccine clinic locations within the [facility]. For locations and available times, please visit [email or web address]/. It is important to note that some COVID mobile vaccine clinics are held outdoors and may be canceled in rainy or stormy conditions. To learn more about pediatric vaccinations (ages 5-11), we invite you to visit the [facility] webpage. [email or web address] [email or web address] learn more about the COVID-19 vaccine, we invite you to visit the CDC website for a list of frequently asked questions. https://www.cdc.gov/coronavirus/2019-ncov/vaccines/faq.html [facility] Patient Portal Access Instructions: Stay connected with your healthcare team and access your personal medical information anytime with the [facility] [employer] Patient Portal. If you would like a full copy of your medical records please contact the [facility] Medical Records Department Friday through Friday between 8a.m. and 4:30p.m. Please follow the directions below to access the portal: 1.Access the email account you provided upon registration to the hospital.2.Look for an invitation email from [facility].3.Open the email and access the invitation link: Accept Invitation to [facility]4.Fill in the required arshad to create your account. Sign into www.Serus with your username and password that you created in the above steps to stay up to date. You can then view a summary of results, a summary of your visits, and the ability to download your summaries to your computer or send the information securely to a physician. Remember that your healthcare information is confidential, so carefully consider who you will allow to register on the [facility] Patient Portal for access to your information. You can also access the [employer] Patient Portal on the OnForce. Simply click on "Health Records" under "HealthData" and then click on the [employer] logo. HOW TO SAFELY DISPOSE OF PRESCRIPTION MEDICATIONS Please use one of the following methods to safely dispose of your unused medications. 1.Use a drug disposal kit: the drug disposal pouch allows you to safely discard your old and unuseddrugs. Ask your nurse to give you one when you are discharged.2.Visit a local take-back location: Many local pharmacies and police departments have programs that collect old and unwanted prescriptiondrugs. Call your local pharmacy or go to http://Dropmysite.AURSOS/7R8Wi7f to find one close to you.3.Make use of household items: Use cat litter or old coffee grounds to dispose medications if other options arenot available. Mix your drugs with these household products, seal them in an airtight container andthrow it into the garbage. Call [facility]: [phone] to be sure your drugs can be disposed of in this way. Some medicines may require a different approach.4.Never flush your medications down the toilet. IF YOU HAVE BEEN PRESCRIBED AN OPIOIDS FOR PAIN If you have been prescribed an opioid (such as hydrocodone, oxycodone or morphine), it is critical to understand the possible side effects and risks of opioid pain medications. Even when taken as directed, opioids can have several side effects including: Tolerance, meaning you might need to take more of a medication for the same pain relief. Nausea, vomiting and/or constipation. Sleepiness, dizziness, dry mouth, confusion, depression or itching. Physical dependence, meaning you have withdrawal symptoms when a medication is stopped ? this can develop within a few days. KNOW YOUR RESPONSIBILITIES It is important to know exactly how much and how often to take the opioid pain medications you are prescribed. Never take opioids in higher amounts or more often than prescribed. Do not combine opioids with alcohol or other drugs that cause drowsiness, such as benzodiazepines, also known as benzos,including diazepam and alprazolam, muscle relaxants or sleep aids. Never sell or share prescriptionopioids. This is illegal. Store opioids in a secure place and out of reach of others (including children, family, friends and visitors). The last page(s) of this document has been signed and retained as a CHART COPY Signatures Patient Education Materials Esophagitis Medication Leaflets My discharge plan and instructions have been reviewed and explained to me and I,DINA BENITO understand my current condition and have read and understand these discharge instructions. I have received a written copy of the plan/instructions. If I have questions, I am aware that I should contact my doctor. Patient/Diet Technician Registered Signature: Date/Time: Relationship to Patient: Witness Name/Signature: Date/Time: [facility]09-06-2024 Note ORIGINAL EXAMINATION: ONE XRAY VIEW OF THE CHEST 12/05/2023 5:19 pm COMPARISON: None. HISTORY: ORDERING SYSTEM PROVIDED HISTORY: Reason for Exam: chest pain FINDINGS: Cardiomediastinal silhouette is normal in size. Prominent lung volumes. Costophrenic angles are sharp. No radiographic pneumothorax. Bilateral apical scarring. No focal consolidation. Linear opacity projects over the right upper lung field, over the right 5th rib posteriorly. IMPRESSION: Linear opacity projects over the right upper lung field, over the right 5th rib posteriorly. Differential includes airspace disease or sclerotic changes to the rib. Correlate with any prior imaging and patient history. Further investigation may be warranted. Interpreted by: Stephan Rutherford Preliminary Report By: Stephan Rutherford Electronically signed By Stephan Rutherford Dictated Date: 12/05/2023 5:20:57 PM Prelim Date: 12/05/2023 5:23:25 PM Sign Date: 12/05/2023 5:23:25 PM Ordering Provider[facility] NoteSinus rhythm RSR' in V1 or V2, probably normal variant Baseline wander in lead(s) I,II,aVR Electronic Signature: MEGAN GUNTER MD 12/05/2023 17:13:13[facility] 09-06-2024 NoteHNO ID: [id number] Author: JULIÁN MOLINA MD Service: ? Author Type: Physician Type: Progress Notes Filed: 12/05/2023 15:44 Note Text: Express Care Triage Note: Patient presents to the [facility] with complaint of severe upper abdominal pain the last 3 days which is worsening. The pain is worse after eating. She denies fever, vomiting, diarrhea, constipation, blood in stool or emesis. She reports she has been to 2 different outside emergency rooms with similar symptoms in the past but reports no clear diagnosis was given to her for her pain. The patient is uncomfortable holding her midepigastric area. She was referred to the emergency room for further evaluation and treatment. She plans to go to [facility]09-06-2024 History of Present illness Narrative* Julián Molina MD - 12/05/2023 3:37 PM EDT Express Care Triage Note: Patient presents to the [facility] with complaint of severe upper abdominal pain the last 3 days which is worsening. The pain is worse after eating. She denies fever, vomiting, diarrhea, constipation, blood in stool or emesis. She reports she has been to 2 different outside emergency rooms with similar symptoms in the past but reports no clear diagnosis was given to her for her pain. The patient is uncomfortable holding her midepigastric area. She was referred to the emergency room for further evaluation and treatment. She plans to go to [facility] encounter Note * Telephone Encounter - Josr Connolly LPN - 10/29/2023 12:02 PM EDT Patient notified and voiced her understanding. [facility] Miscellaneous Notes* Telephone Encounter - Josr Connolly LPN - 10/29/2023 12:02 PM EDT Patient notified and voiced her understanding. * Telephone Encounter - Shagufta Carreno MA - 10/28/2023 9:43 AM EDT Called and left message on patients voicemail to return call to the office and ask to speak with a triage nurse. Please relay information below from Provider. Shagufta Carreno MA Additional message from Provider: The 10-year ASCVD risk score (Sobeida DON, et al., 2019) is: 6.5% Values used to calculate the score: Age: 57 years Sex: Female Is Non- : No Diabetic: No Tobacco smoker: Yes Systolic Blood Pressure: 109 mmHg Is BP treated: No HDL Cholesterol: 31 mg/dL Total Cholesterol: 200 mg/dL * Telephone Encounter - Zachery Lehman MD - 10/28/2023 9:09 AM EDT Patient did not knot picker cloth her Zang message. Please notify her of below, thank you. Hdl and total slightly higher. So is ldl. Numbers don't require medications. I would just watch diet. Regular exercise helps too.. Call if any questions. Take care. ... [facility] Telephone encounter Note * Telephone Encounter - Shagufta Carreno MA - 10/28/2023 9:43 AM EDT Called and left message on patients voicemail to return call to the office and ask to speak with a triage nurse. Please relay information below from Provider. Shagufta Carreno MA Additional message from Provider: The 10-year ASCVD risk score (Sobeida DON et al., 2019) is: 6.5% Values used to calculate the score: Age: 57 years Sex: Female Is Non- : No Diabetic: No Tobacco smoker: Yes Systolic Blood Pressure: 109 mmHg Is BP treated: No HDL Cholesterol: 31 mg/dL Total Cholesterol: 200 mg/dL [facility] Telephone encounter Note* Telephone Encounter - Zachery Lehman MD - 10/28/2023 9:09 AM EDT Patient did not knot picker cloth her Zang message. Please notify her of below, thank you. Hdl and total slightly higher. So is ldl. Numbers don't require medications. I would just watch diet. Regular exercise helps too.. Call if any questions. Take care. ... [facility] Hospital Discharge instructions Patient Education 08/24/2023 17:59:22 Abdominal Pain Abdominal Pain Abdominal pain is pain in the stomach or belly area. Everyone has this pain from time to time. In many cases it goes away on its own. But abdominal pain can sometimes be due to a serious problem, such as appendicitis. So it s important to know when to get help. Causes of abdominal pain There are many possible causes of abdominal pain. Common causes in adults include: Constipation, diarrhea, or gas Stomach acid flowing back up into the esophagus (acid reflux or heartburn) Severe acid reflux, called GERD (gastroesophageal reflux disease) A sore in the lining of the stomach or small intestine (peptic ulcer) Inflammation of the gallbladder, liver, or pancreas Gallstones or kidney stones Appendicitis Intestinal blockage An internal organ pushing through a muscle or other tissue (hernia) Urinary tract infections In women, menstrual cramps, fibroids, ovarian cysts, pelvic inflammatory disease, or endometriosis Inflammation or infection of the intestines, including Crohn's disease and ulcerative colitis Irritable bowel syndrome Diagnosing the cause of abdominal pain Your healthcare provider will give you a physical exam help find the cause of your pain. If needed,you will have tests. Belly pain has many possible causes. So it can be hard to find the reason for your pain. Giving details about your pain can help. Tell your provider where and when you feel the pain, and what makes it better or worse. Also let your provider know if you have other symptoms such as: Fever Tiredness Upset stomach (nausea) Vomiting Changes in bathroom habits Blood in the stool or black, tarry stool Weight loss that you can't explain (involuntary weight loss?) Also report any family history of stomach or intestinal problems, or cancers. Tell your provider about all your alcohol use and drug use. Tell your provider about all medicines you use, including herbs, vitamins, and supplements. Treating abdominal pain Some causes of pain need emergency medical treatment right away. These include appendicitis or a bowel blockage. Other problems can be treated with rest, fluids, or medicines. Your healthcare provider can give you specific instructions for treatment or self-care based on what is causing your pain. If you have vomiting or diarrhea, sip water or other clear fluids. When you are ready to eat solid foods again, start with small amounts of zcii-zk-nwjvqh, low- fat foods. These include apple sauce, toast, or crackers. When to get medical care Call 911 or go to the hospital right away if you: Can t pass stool and are vomiting Are vomiting blood or have bloody diarrhea or black, tarry diarrhea Have chest, neck, or shoulder pain Feel like you might pass out Have pain in your shoulder blades with nausea Have sudden, severe belly pain Have new, severe pain unlike any you have felt before Have a belly that is rigid, hard, and hurts to touch Call your healthcare provider if you have: Pain for more than 5 days Bloating for more than 2 days Diarrhea for more than 5 days A fever of 100.4 F (38 C) or higher, or as directed by your healthcare provider Pain that gets worse Weight loss for no reason Continued lack of appetite Blood in your stool How to prevent abdominal pain Here are some tips to help prevent abdominal pain: Eat smaller amounts of food at each meal. Don't eat greasy, fried, or other high-fat foods. Don't eat foods that give you gas. Exercise regularly. Drink plenty of fluids. To help prevent GERD symptoms: Quit smoking. Reduce alcohol and foods that increase stomach acid. Don't use aspirin or pvbj-oku-sgurwlv pain and fever medicines, if possible. This includes nonsteroidal anti-inflammatory drugs (NSAIDs). Lose excess weight. Finish eating at least 2 hours before you go to bed or lie down. Raise the head of your bed. 7453-4001 [employer] [address] [place] [address], [place] [address]. All rights reserved. This information is not intended as a substitute for professional medical care. Always follow [facility] hospitalcare professional's instructions. Follow Up Care 08/24/2023 16:19:34 With:ZACHERY LEHMAN MD Address: [facility] [address] [place] [address] [phone] When:2-4 days [facility] Note Discharge Instructions Thank you for allowing [facility] to assist you with your healthcare needs. The following is importantdischarge information regarding your hospital visit. Diagnosis from Today's Visit Abdominal pain What to Do Next Instructions from Your Care Team No qualifying data available. Post Acute Orders No qualifying data available. You Need to Schedule the Following Appointments Follow Up with ZACHERY LEHMAN MD When:Within 2-4 days [facility] [address] [place] [address] [phone] Allergies No active allergies Medications Please ask your primary doctor or pharmacist before taking any other medication not listed, including over the counter drugs, herbal medications, vitamins and or supplements as they may interact withyour home medications. What How Much When Instructions Last Dose New ondansetron (Zofran 4 mg oral tablet) 1 tab(s) by mouth Every 6 hours as needed for Nausea/Vomiting Duration: 5 Days Printed Prescription Please take this list to your next doctor s visit. Bring all medications you take, including over the counter medications, herbals and other supplements with you to your doctor s visit. Patients and families are reminded to discard old lists and to update any records with all medication providers or retail pharmacies. Education Materials Abdominal Pain Abdominal pain is pain in the stomach or belly area. Everyone has this pain from time to time. In many cases it goes away on its own. But abdominal pain can sometimes be due to a serious problem, such as appendicitis. So it s important to know when to get help. Causes of abdominal pain There are many possible causes of abdominal pain. Common causes in adults include: Constipation, diarrhea, or gas Stomach acid flowing back up into the esophagus (acid reflux or heartburn) Severe acid reflux, called GERD (gastroesophageal reflux disease) A sore in the lining of the stomach or small intestine (peptic ulcer) Inflammation of the gallbladder, liver, or pancreas Gallstones or kidney stones Appendicitis Intestinal blockage An internal organ pushing through a muscle or other tissue (hernia) Urinary tract infections In women, menstrual cramps, fibroids, ovarian cysts, pelvic inflammatory disease, or endometriosis Inflammation or infection of the intestines, including Crohn's disease and ulcerative colitis Irritable bowel syndrome Diagnosing the cause of abdominal pain Your healthcare provider will give you a physical exam help find the cause of your pain. If needed,you will have tests. Belly pain has many possible causes. So it can be hard to find the reason for your pain. Giving details about your pain can help. Tell your provider where and when you feel the pain, and what makes it better or worse. Also let your provider know if you have other symptoms such as: Fever Tiredness Upset stomach (nausea) Vomiting Changes in bathroom habits Blood in the stool or black, tarry stool Weight loss that you can't explain (involuntary weight loss?) Also report any family history of stomach or intestinal problems, or cancers. Tell your provider about all your alcohol use and drug use. Tell your provider about all medicines you use, including herbs, vitamins, and supplements. Treating abdominal pain Some causes of pain need emergency medical treatment right away. These include appendicitis or a bowel blockage. Other problems can be treated with rest, fluids, or medicines. Your healthcare provider can give you specific instructions for treatment or self-care based on what is causing your pain. If you have vomiting or diarrhea, sip water or other clear fluids. When you are ready to eat solid foods again, start with small amounts of nbfe-gm-bcxgng, low- fat foods. These include apple sauce, toast, or crackers. When to get medical care Call 911 or go to the hospital right away if you: Can t pass stool and are vomiting Are vomiting blood or have bloody diarrhea or black, tarry diarrhea Have chest, neck, or shoulder pain Feel like you might pass out Have pain in your shoulder blades with nausea Have sudden, severe belly pain Have new, severe pain unlike any you have felt before Have a belly that is rigid, hard, and hurts to touch Call your healthcare provider if you have: Pain for more than 5 days Bloating for more than 2 days Diarrhea for more than 5 days A fever of 100.4 F (38 C) or higher, or as directed by your healthcare provider Pain that gets worse Weight loss for no reason Continued lack of appetite Blood in your stool How to prevent abdominal pain Here are some tips to help prevent abdominal pain: Eat smaller amounts of food at each meal. Don't eat greasy, fried, or other high-fat foods. Don't eat foods that give you gas. Exercise regularly. Drink plenty of fluids. To help prevent GERD symptoms: Quit smoking. Reduce alcohol and foods that increase stomach acid. Don't use aspirin or lnqa-ekh-gwaaklg pain and fever medicines, if possible. This includes nonsteroidal anti-inflammatory drugs (NSAIDs). Lose excess weight. Finish eating at least 2 hours before you go to bed or lie down. Raise the head of your bed. 6964-4920 [employer] [address] [place] [address], [place] [address]. All rights reserved. This information is not intended as a substitute for professional medical care. Always follow yourhealthcare professional's instructions. Additional Information VACCINATE! IT SAVES LIVES! Members of the community who have not yet received the COVID-19 vaccine and would like to receive it can visit one of [facility] vaccine clinics. There are many vaccine clinic locations within the [facility]. For locations and available times, please visit www.gettheshot.coronavirus.[place].gov/. It is important to note that some COVID mobile vaccine clinics are held outdoors and may be canceled in rainy or stormy conditions. To learn more about pediatric vaccinations (ages 5-11), we invite you to visit the [facility] webpage. [email or web address]/[email or web address] [email or web address] learn more about the COVID-19 vaccine, we invite you to visit the CDC website for a list of frequently asked questions. https://www.cdc.gov/coronavirus/2019-ncov/vaccines/faq.html [facility] Patient Portal Access Instructions: Stay connected with your healthcare team and access your personal medical information anytime with the [facility] Patient Portal. If you would like a full copy of your medical records please contact the [facility] Medical Records Department Friday through Friday between 8a.m. and 4:30p.m. Please follow the directions below to access the portal: 1.Access the email account you provided upon registration to the [facility].2.Look for an invitation email from [facility].3.Open the email and access the invitation link: Accept Invitation to [facility] [employer]4.Fill in the required arshad to create your account. Sign into www.Serus with your username and password that you created in the above steps to stay up to date. You can then view a summary of results, a summary of your visits, and the ability to download your summaries to your computer or send the information securely to a physician. Remember that your healthcare information is confidential, so carefully consider who you will allow to register on the [facility] Patient Portal for access to your information. You can also access the [employer] Patient Portal on the OnForce. Simply click on "Health Records" under "[employer] Resource Group" and then click on the [employer] logo. HOW TO SAFELY DISPOSE OF PRESCRIPTION MEDICATIONS Please use one of the following methods to safely dispose of your unused medications. 1.Use a drug disposal kit: the drug disposal pouch allows you to safely discard your old and unuseddrugs. Ask your nurse to give you one when you are discharged.2.Visit a local take-back location: Many local pharmacies and police departments have programs that collect old and unwanted prescriptiondrugs. Call your local pharmacy or go to http://Dropmysite.AURSOS/8N0Ro8o to find one close to you.3.Make use of household items: Use cat litter or old coffee grounds to dispose medications if other options arenot available. Mix your drugs with these household products, seal them in an airtight container andthrow it into the garbage. Call [facility]: [phone] to be sure your drugs can be disposed of in this way. Some medicines may require a different approach.4.Never flush your medications down the toilet. IF YOU HAVE BEEN PRESCRIBED AN OPIOIDS FOR PAIN If you have been prescribed an opioid (such as hydrocodone, oxycodone or morphine), it is critical to understand the possible side effects and risks of opioid pain medications. Even when taken as directed, opioids can have several side effects including: Tolerance, meaning you might need to take more of a medication for the same pain relief. Nausea, vomiting and/or constipation. Sleepiness, dizziness, dry mouth, confusion, depression or itching. Physical dependence, meaning you have withdrawal symptoms when a medication is stopped ? this can develop within a few days. KNOW YOUR RESPONSIBILITIES It is important to know exactly how much and how often to take the opioid pain medications you are prescribed. Never take opioids in higher amounts or more often than prescribed. Do not combine opioids with alcohol or other drugs that cause drowsiness, such as benzodiazepines, also known as benzos,including diazepam and alprazolam, muscle relaxants or sleep aids. Never sell or share prescriptionopioids. This is illegal. Store opioids in a secure place and out of reach of others (including children, family, friends and visitors). The last page(s) of this document has been signed and retained as a CHART COPY Signatures Patient Education Materials Abdominal Pain Medication Leaflets My discharge plan and instructions have been reviewed and explained to me and I,DINA BENITO understand my current condition and have read and understand these discharge instructions. I have received a written copy of the plan/instructions. If I have questions, I am aware that I should contact my doctor. Patient/Diet Technician Registered Signature: Date/Time: Relationship to Patient: Witness Name/Signature: Date/Time: [facility]05-26-2024 Note Discharge Instructions Thank you for allowing [facility] to assist you with your healthcare needs. The following is importantdischarge information regarding your hospital visit. Diagnosis from Today's Visit Abdominal pain What to Do Next Instructions from Your Care Team No qualifying data available. Post Acute Orders No qualifying data available. You Need to Schedule the Following Appointments Follow Up with ZACHERY LEHMAN MD When:Within 2-4 days Where:[facility] [address] [place] [address] [phone] Allergies No active allergies Medications Please ask your primary doctor or pharmacist before taking any other medication not listed, including over the counter drugs, herbal medications, vitamins and or supplements as they may interact withyour home medications. What How Much When Instructions Last Dose New ondansetron (Zofran 4 mg oral tablet) 1 tab(s) by mouth Every 6 hours as needed for Nausea/Vomiting Duration: 5 Days Printed Prescription Please take this list to your next doctor s visit. Bring all medications you take, including over the counter medications, herbals and other supplements with you to your doctor s visit. Patients and families are reminded to discard old lists and to update any records with all medication providers or retail pharmacies. Education Materials Abdominal Pain Abdominal pain is pain in the stomach or belly area. Everyone has this pain from time to time. In many cases it goes away on its own. But abdominal pain can sometimes be due to a serious problem, such as appendicitis. So it s important to know when to get help. Causes of abdominal pain There are many possible causes of abdominal pain. Common causes in adults include: Constipation, diarrhea, or gas Stomach acid flowing back up into the esophagus (acid reflux or heartburn) Severe acid reflux, called GERD (gastroesophageal reflux disease) A sore in the lining of the stomach or small intestine (peptic ulcer) Inflammation of the gallbladder, liver, or pancreas Gallstones or kidney stones Appendicitis Intestinal blockage An internal organ pushing through a muscle or other tissue (hernia) Urinary tract infections In women, menstrual cramps, fibroids, ovarian cysts, pelvic inflammatory disease, or endometriosis Inflammation or infection of the intestines, including Crohn's disease and ulcerative colitis Irritable bowel syndrome Diagnosing the cause of abdominal pain Your healthcare provider will give you a physical exam help find the cause of your pain. If needed,you will have tests. Belly pain has many possible causes. So it can be hard to find the reason for your pain. Giving details about your pain can help. Tell your provider where and when you feel the pain, and what makes it better or worse. Also let your provider know if you have other symptoms such as: Fever Tiredness Upset stomach (nausea) Vomiting Changes in bathroom habits Blood in the stool or black, tarry stool Weight loss that you can't explain (involuntary weight loss?) Also report any family history of stomach or intestinal problems, or cancers. Tell your provider about all your alcohol use and drug use. Tell your provider about all medicines you use, including herbs, vitamins, and supplements. Treating abdominal pain Some causes of pain need emergency medical treatment right away. These include appendicitis or a bowel blockage. Other problems can be treated with rest, fluids, or medicines. Your healthcare provider can give you specific instructions for treatment or self-care based on what is causing your pain. If you have vomiting or diarrhea, sip water or other clear fluids. When you are ready to eat solid foods again, start with small amounts of lxjg-sd-yftxxy, low- fat foods. These include apple sauce, toast, or crackers. When to get medical care Call 911 or go to the hospital right away if you: Can t pass stool and are vomiting Are vomiting blood or have bloody diarrhea or black, tarry diarrhea Have chest, neck, or shoulder pain Feel like you might pass out Have pain in your shoulder blades with nausea Have sudden, severe belly pain Have new, severe pain unlike any you have felt before Have a belly that is rigid, hard, and hurts to touch Call your healthcare provider if you have: Pain for more than 5 days Bloating for more than 2 days Diarrhea for more than 5 days A fever of 100.4 F (38 C) or higher, or as directed by your healthcare provider Pain that gets worse Weight loss for no reason Continued lack of appetite Blood in your stool How to prevent abdominal pain Here are some tips to help prevent abdominal pain: Eat smaller amounts of food at each meal. Don't eat greasy, fried, or other high-fat foods. Don't eat foods that give you gas. Exercise regularly. Drink plenty of fluids. To help prevent GERD symptoms: Quit smoking. Reduce alcohol and foods that increase stomach acid. Don't use aspirin or gmfh-fan-rvumcul pain and fever medicines, if possible. This includes nonsteroidal anti-inflammatory drugs (NSAIDs). Lose excess weight. Finish eating at least 2 hours before you go to bed or lie down. Raise the head of your bed. 3751-8769 [employer] [address], [place] [address]. All rights reserved. This information is not intended as a substitute for professional medical care. Always follow yourhealthcare professional's instructions. Additional Information VACCINATE! IT SAVES LIVES! Members of the community who have not yet received the COVID-19 vaccine and would like to receive it can visit one of [facility] vaccine clinics. There are many vaccine clinic locations within the [facility]. For locations and available times, please visit www.[email or web address].[place].gov/. It is important to note that some COVID mobile vaccine clinics are held outdoors and may be canceled in rainy or stormy conditions. To learn more about pediatric vaccinations (ages 5-11), we invite you to visit the [facility] webpage. [email or web address] learn more about the COVID-19 vaccine, we invite you to visit the CDC website for a list of frequently asked questions. https://www.cdc.gov/coronavirus/2019-ncov/vaccines/faq.html [employer] Patient Portal Access Instructions: Stay connected with your healthcare team and access your personal medical information anytime with the [employer] Patient Portal. If you would like a full copy of your medical records please contact the [facility] Medical Records Department Friday through Friday between 8a.m. and 4:30p.m. Please follow the directions below to access the portal: 1.Access the email account you provided upon registration to the hospital.2.Look for an invitation email from [facility].3.Open the email and access the invitation link: Accept Invitation to [facility]4.Fill in the required arshad to create your account. Sign into [email or web address] with your username and password that you created in the above steps to stay up to date. You can then view a summary of results, a summary of your visits, and the ability to download your summaries to your computer or send the information securely to a physician. Remember that your healthcare information is confidential, so carefully consider who you will allow to register on the [employer] Patient Portal for access to your information. You can also access the [employer] [employer] Patient Portal on the [employer]ah. Simply click on "Health Records" under "HealthData" and then click on the [employer] logo. HOW TO SAFELY DISPOSE OF PRESCRIPTION MEDICATIONS Please use one of the following methods to safely dispose of your unused medications. 1.Use a drug disposal kit: the drug disposal pouch allows you to safely discard your old and unuseddrugs. Ask your nurse to give you one when you are discharged.2.Visit a local take-back location: Many local pharmacies and police departments have programs that collect old and unwanted prescriptiondrugs. Call your local pharmacy or go to http://Dropmysite.AURSOS/5U5Zw2y to find one close to you.3.Make use of household items: Use cat litter or old coffee grounds to dispose medications if other options arenot available. Mix your drugs with these household products, seal them in an airtight container andthrow it into the garbage. Call [facility]: [phone] to be sure your drugs can be disposed of in this way. Some medicines may require a different approach.4.Never flush your medications down the toilet. IF YOU HAVE BEEN PRESCRIBED AN OPIOIDS FOR PAIN If you have been prescribed an opioid (such as hydrocodone, oxycodone or morphine), it is critical to understand the possible side effects and risks of opioid pain medications. Even when taken as directed, opioids can have several side effects including: Tolerance, meaning you might need to take more of a medication for the same pain relief. Nausea, vomiting and/or constipation. Sleepiness, dizziness, dry mouth, confusion, depression or itching. Physical dependence, meaning you have withdrawal symptoms when a medication is stopped ? this can develop within a few days. KNOW YOUR RESPONSIBILITIES It is important to know exactly how much and how often to take the opioid pain medications you are prescribed. Never take opioids in higher amounts or more often than prescribed. Do not combine opioids with alcohol or other drugs that cause drowsiness, such as benzodiazepines, also known as benzos,including diazepam and alprazolam, muscle relaxants or sleep aids. Never sell or share prescriptionopioids. This is illegal. Store opioids in a secure place and out of reach of others (including children, family, friends and visitors). The last page(s) of this document has been signed and retained as a CHART COPY Signatures Patient Education Materials Abdominal Pain Medication Leaflets My discharge plan and instructions have been reviewed and explained to me and I,DINA BENITO understand my current condition and have read and understand these discharge instructions. I have received a written copy of the plan/instructions. If I have questions, I am aware that I should contact my doctor. Patient/Diet Technician Registered Signature: Date/Time: Relationship to Patient: Witness Name/Signature: Date/Time: [facility]05-26-2024 Note ORIGINAL EXAMINATION: CT OF THE ABDOMEN AND PELVIS WITH CONTRAST08/24/2023 5:40 pm TECHNIQUE: CT of the abdomen and pelvis was performed with the administration of intravenous contrast. Multiplanar reformatted images are provided for review. Automated exposure control, iterative reconstruction, and/or weight based adjustment of the mA/kV was utilized to reduce the radiation dose to as low as reasonably achievable. COMPARISON: None HISTORY: ORDERING SYSTEM PROVIDED HISTORY: Reason for Exam: Mid abdominal pain FINDINGS: No acute fracture or dislocation. Degenerative changes of the spine. No pleural or pericardial effusion. The heart is normal in size. 0.4 cm density in the inferior anterior pericardial region may represent a small lymph node. Small hypodense area adjacent to the falciform ligament likely represents focal fatty infiltration. The spleen, pancreas, gallbladder, and adrenal glands are unremarkable. The kidneys enhance symmetrically. No evidence of hydronephrosis or urolithiasis. The bladder is decompressed, limiting evaluation. No adnexal masses. The solid pelvic organs demonstrate no acute abnormality. Pelvic phleboliths. Mild thickening at the GE junction is noted. There is a small duodenal diverticulum. The colon is partially decompressed. Small amount of fat within the descending colon wall may represent remote insult. The appendix is not definitively identified, however no pericecal inflammation is seen. Mildly atherosclerotic nonaneurysmal aorta. No pathologically enlarged lymph nodes are identified. No free intraperitoneal air or fluid. Small fat containing umbilical hernia. IMPRESSION: Mild thickening at the GE junction could be due to a nondistended small hiatal hernia versus distal esophageal inflammation. Otherwise, no acute intra-abdominal abnormalities. Chronic and incidental findings as above. I have personally reviewed the images of this examination and agree with the resident's findings and interpretation. Interpreted by: Kalpesh Pimentel DO Preliminary Report By: Mejia Grajeda Electronically signed By Kalpesh Pimentel DO Dictated Date: 08/24/2023 5:42:35 PM Prelim Date: 08/24/2023 5:52:23 PM Sign Date: 08/24/2023 6:10:01 PM Ordering Provider: [facility]05-14-2024 Note* Letter - Coordinator, Mammography - 08/12/2023 12:14 PM EDT August 12, 2023 PID: [id number] Dina Benito [address] [address] Dear Shane Jesus, We are pleased to inform you that the results of your recent breast imaging exam on 08/11/2023 are normal. Early detection of cancer is very important. We also understand recommendations regarding breast cancer screening are controversial. Please discuss with your primary care provider which strategy is best for you and whether a mammogram is right for you. Your imaging studies and report will be kept on file at [facility] as part of your permanent medical record and are available for your continuing care. Thank you for allowing us to help in meeting your health care needs. Sincerely, Dr. Nath Interpreting Radiologist [facility] (Normal over 40) [facility]05-14-2024 Miscellaneous Notes* Letter - Coordinator, Mammography - 08/12/2023 12:14 PM EDT August 12, 2023 PID: [id number] Dina Benito [address] [address] Dear Shaen Benito, We are pleased to inform you that the results of your recent breast imaging exam on 08/11/2023 are normal. Early detection of cancer is very important. We also understand recommendations regarding breast cancer screening are controversial. Please discuss with your primary care provider which strategy is best for you and whether a mammogram is right for you. Your imaging studies and report will be kept on file at [facility] as part of your permanent medical record and are available for your continuing care. Thank you for allowing us to help in meeting your health care needs. Sincerely, Dr. Nath Interpreting Radiologist [facility] (Normal over 40) [facility] History of Present illness Narrative* Shanon Gallardo Mammo [place] - 08/11/2023 1:30 PM EDT Radiology Service Progress Note PATIENT NAME: Dina Benito DATE OF SERVICE: August 11, 2023 TIME: 2:00 PM PATIENT IDENTITY VERIFICATION COMPLETED USING TWO (2) IDENTIFIERS: Name and Date of confirmedby patient verbally. FALL SCREENING: Has the patient had 2 falls in the last year or 1 fall with injury or currently using an Ambulatory Assistive Device (Walker, Cane, Wheelchair, Crutches, etc.)? No PATIENT GENDER DATA: Female. status: : No status: NO. PATIENT RELEVANT IMPLANT DATA REVIEWED: Not Applicable PATIENT PRESENTS WITH AN IMPLANTABLE OR ATTACHED RESEARCH EPIDEMIOLOGIST: No RADIOLOGY DEPARTMENT: Mammography PERIPHERAL IV DATA: Not applicable SIGNED BY: Delisa Abarcao [place] August 11, 2023 2:00 PM [facility] Instructions* Patient Instructions* Zachery Lehman MD - 07/25/2023 1:28 PM EDT Guidelines for low cholesterol, low triglyceride diets FOODS TO USE MEATS/FISH - Choose lean meats (chicken, turkey, veal, and nonfatty cuts of beef with excess fat trimmed; one serving = 3 oz. of cooked meat). Also, fresh or frozen fish, canned fish packed in water,and shellfish (lobster, crab, shrimp, oysters). Limit use to no more than one serving of one of these per week. Shellfish are high in cholesterol but low in saturated fat and should be used sparingly. Meats and fish should be broiled (jaimes or oven) or baked on a rack. EGGS - Egg substitutes and egg whites (use freely). Egg yolks (limit two per week). FRUITS - Eat three servings of fresh fruit per day (1 serving = 1/2 cup). Be sure to have at least one citrus fruit daily. Frozen or canned fruit with no sugar or syrup added may be used. VEGETABLES - Most vegetables are not limited (see Foods to Avoid). One dark green (string beans, escarole) or one deep yellow (squash) vegetable is recommended daily. Cauliflower, broccoli, and celery, as well as potato skins, are recommended for their fiber content (fiber is associated with cholesterol reduction). It is preferable to steam vegetables, but they may be boiled, strained, or braisedwith polyunsaturated vegetable oil (see below). BEANS - Dried peas or beans (1 serving = 1/2 cup) may be used as a bread substitute. NUTS - Almonds, walnuts, and peanuts may be used sparingly (1 serving = 1 tablespoon). Use pumpkin,sesame, or sunflower seeds. BREADS/GRAINS - One roll or one slice of whole grain or enriched bread may be used, or three soda crackers or four pieces of sonido toast as a substitute. Spaghetti, rice or noodles (1/2 cup) or 1/2 large ear of corn may be used as a bread substitute. In preparing these foods, do not use butter or shortening; use soft margarine. Also use egg and sugar substitutes. Choose high fiber grains, such asoats and whole wheat. CEREALS - Use 1/2 cup of hot cereal or 1/4 cup of cold cereal per day. Add a sugar substitute if desired, with 99% fat-free or skim milk. MILK PRODUCTS - Always use 99% fat-free or skim milk, dairy products such as low-fat cheeses (camacho's, uncreamed diet cottage), low-fat yogurt, and powdered skim milk. FATS/OILS - Use soft (not stick) margarine, vegetable oils that are high in polyunsaturated fats (such as safflower, sunflower, soybean, corn, and cottonseed). Always refrigerate meat drippings to harden the fat and remove it before preparing gravies. DESSERTS/SNACKS - Limit to two servings per day; substitute each serving for a bread/cereal serving; ice milk or water sherbet (1/4 cup); unflavored gelatin or gelatin flavored with sugar substitute (1/2 cup); pudding prepared with skim milk (1/2 cup); egg white souffles; unbuttered popcorn (1 1/2 cups). Substitute carob for chocolate. BEVERAGES - Fresh fruit juices (limit to 4 oz. per day); black coffee; plain or herbal teas; soft drinks with sugar substitutes; club soda, preferably salt- free; cocoa made with skim milk or nonfat dried milk and water (sugar substitute added, if desired); clear broth. Alcohol - limit to two servings per day (see Foods to Avoid). MISCELLANEOUS - You may use the following freely: vinegar; spices; herbs; nonfat bouillon; mustard;Worcestershire sauce; soy sauce; flavoring essence. FOODS TO AVOID MEATS/FISH - Marbled beef, pork, mendoza, sausage and other pork products; fatty fowl (duck, goose); skin and fat of turkey and chicken; processed meats; luncheon meats (salami, bologna); frankfurters and fast food hambergers (they are loaded with fat); organ meats (kidneys, liver); canned fish packed in oil. EGGS - Limit egg yolks to two per week. FRUITS - Coconuts (rich in saturated fat) VEGETABLES - Avoid avocados. Starchy vegetables (potatoes, corn fernández beans, dried peas, beans) may be used only if they are substitutes for a serving of bread or cereal. (Baked potato skin, however, is desirable for its fiber content). BEANS - Commercial baked beans with sugar and/or pork added. NUTS - Avoid nuts. Limit peanuts and walnuts to one tablespoonful per day. BREADS/GRAINS - Any baked goods with shortening and/or sugar. Commercial mixes with dried eggs and whole milk. Avoid sweet rolls, doughnuts, breakfast pastries (Guinean), and sweetened packaged cereals (the added sugar converts readily to triglycerides). MILK PRODUCTS - Whole milk and whole-milk packaged goods; cream; ice cream; whole-milk puddings, yogurt, or cheeses; nondairy cream substitutes. FATS/OILS - Butter, lard, animal fats, mendoza drippings, gravies, cream sauces, as well as palm and coconut oils. All these are high in saturated fats. Examine labels on "cholesterol free" products for "hydrogenated fats." (These are oils that have been hardened into solids and in the process have become saturated.) DESSERTS/SNACKS - Fried snack foods like potato chips; chocolate; candies in general; jams, jellies, syrups; whole-milk puddings; ice cream and milk sherberts; hydrogenatd peanut butter. BEVERAGES - Sugared fruit juices and soft drinks; cocoa made with whole milk and/or sugar. When using alcohol (1 oz. liquor, 5 oz. beer, or 2 1/2 oz. dry table wine per serving), one serving must be substituted for one bread or cereal serving (limit two servings of alcohol per day). SPECIAL NOTES 1. Remember that even nonlimited foods should be used in moderation. 2. While on a cholesterol-lowering diet, be sure to avoid animal fats and marbled meats. 3. While on a triglyceride-lowering diet, be sure to avoid sweets and to control the amount of carbohydrates you eat (starchy foods such as flower, bread, or potatoes). 4. Buy a good low-fat cookbook, such as the one published by the [employer]. 5. Consult your physician if you have any questions. If you want to do shingles or tdap vaccine, those need done at a pharmacy documented [facility]04[facility] History of Present illness Narrative* Zachery Lehman MD - 07/25/2023 1:05 PM EDT Images from the original note were not included. Patient presents with: Physical: Needs to be a wellness exam Dina Benito is a 57 year old female here for a Medicare wellness visit. RLS is stable. Her brother had Zang message but we did not have permission to give him info. She gave me info to send to him. She does not currently meet criteria for meds for lipids. The 10-year ASCVD risk score (Sobeida DON, et al., 2019) is: 7.1% Values used to calculate the score: Age: 57 years Sex: Female Is Non- : No Diabetic: No Tobacco smoker: Yes Systolic Blood Pressure: 109 mmHg Is BP treated: No HDL Cholesterol: 28 mg/dL Total Cholesterol: 199 mg/dL Latest Ref Rng 06/24/2023 WBC 3.70 - 11.00 k/uL 7.72 RBC 3.90 - 5.20 m/uL 4.49 Hemoglobin 11.5 - 15.5 g/dL 13.3 Hematocrit 36.0 - 46.0 % 41.5 MCV 80.0 - 100.0 fL 92.4 MCH 26.0 - 34.0 pg 29.6 MCHC 30.5 - 36.0 g/dL 32.0 RDW-CV 11.5 - 15.0 % 11.9 Platelet Count 150 - 400 k/uL 248 MPV 9.0 - 12.7 fL 11.0 Neut% % 60.8 Abs Neut (ANC) 1.45 - 7.50 k/uL 4.69 Lymph% % 29.0 Abs Lymph 1.00 - 4.00 k/uL 2.24 [place]% % 6.1 Abs [place] <0.87 k/uL 0.47 Eosin% % 3.1 Abs Eosin <0.46 k/uL 0.24 Baso% % 0.6 Abs Baso <0.11 k/uL 0.05 Immature Gran % % 0.4 IMMATURE GRANS (ABS) <0.10 k/uL 0.03 NRBC /100 WBC 0.0 Absolute nRBC <0.01 k/uL <0.01 DTYPE Auto Protein, Total 6.3 - 8.0 g/dL 7.1 Albumin 3.9 - 4.9 g/dL 4.4 Calcium 8.5 - 10.2 mg/dL 9.3 Bilirubin, Total 0.2 - 1.3 mg/dL 0.2 Alkaline Phosphatase 34 - 123 U/L 68 AST 13 - 35 U/L 13 ALT 7 - 38 U/L 8 Glucose 74 - 99 mg/dL 86 BUN 7 - 21 mg/dL 11 Creatinine 0.58 - 0.96 mg/dL 0.68 Sodium 136 - 144 mmol/L 144 Potassium 3.7 - 5.1 mmol/L 4.0 Chloride 97 - 105 mmol/L 107 (H) CO2 22 - 30 mmol/L 26 Anion Gap 9 - 18 mmol/L 11 eGFR >=60 mL/min/1.73m 102 Cholesterol, Total <200 mg/dL 199 Triglyceride <150 mg/dL 144 HDL Cholesterol >39 mg/dL 28 (L) Non HDL Cholesterol <130 mg/dL 171 (H) Fasting Time hrs 15 VLDL Cholesterol <30 mg/dL 29 TC:HDL Ratio <5.10 7.11 (H) LDL Cholesterol <100 mg/dL 142 (H) LDL:HDL Ratio <2.54 5.07 (H) Legend: (H) High (L) Low Medicare Health Risk Assessment General Health Fair Exercise: Minutes/Day 10 minutes Exercise: Days/Week 7 days Alcohol: Daily Use Never Alcohol: Drinks/Day Patient does not drink Alcohol: 6 or more drinks Never Feel off balance No Concerns: Teeth/Dentures No Concerns: Sexual function No Troubled by feelings None of the above Frequency: Eating healthy diet Not at all ADLs requiring help None of the above Safety precautions in home/vehicle Yes. Follows them Smoke, vape, chews tobacco Yes, but I'm not ready to quit. Discussed tobacco cessation, including risks of continued use. Offered assistance to help quit if patient desires. Difficulty hearing Yes-has had them tested. Told might need hearing aides. Difficulty seeing No Current Providers Specialists: I have reviewed specialist-related care of the patient in the medical record. Outside specialists seen: Dr Adhikari, Dr. Godwin and Dr Raman., lung cancer screening clinic at [facility] Medical/Family history review Reviewed and updated problem list, medical/surgical/family/social history, medications, and allergies. Opioid use review Opioid Medications (last 90 days) No data to display Depression screening Depression Screening PHQ-2 Score 04/30/2022 0 Depression screening tool completed and reviewed. Based on score and interview, patient is not at risk for depression. Screening tool discussed with patient, and I recommended no further interventionat this time. Cognitive screening Cognitive screening reviewed and No further action needed (score 3-5). Functional Observation Was the patient's Timed Up & Go test unsteady or ? 12 seconds? no Advance Care Planning Patient did not wish or was not able to name a surrogate decision maker or provide an advance care plan ROS No chest pain, shortness of breath, gi or gu issues. Measurements BP 109/66 Pulse 74 Wt 123 lb (55.8kg) SpO2 99% LMP 12/10/2011 Vision Screening: Follows with optometry/ophthalmology PE: Heent negative. Lungs cta Heart RRR, no murmur. Abd soft, nt Ext no edema. Assessment/Plan Medicare annual wellness visit, subsequent (Z00.00) - Counseled on healthy diet and regular exercise - Personalized prevention plan provided - Smoking cessation encouraged; discussed risks to health and quitting strategies. Patient is not ready to quit Mammogram and colon cancer screening. Discussed immunizations, she declines today. Recheck labs in three months. Low cholesterol diet given. Zachery Lehman MD documented in this encounterProv[facility]04-02-2024 Miscellaneous Notes* Telephone Encounter - Hoa Fox LPN - 07/01/2023 9:37 AM EDT Patient is scheduled for nurse visit to receive updated vaccines. She has not been seen in the office for over one year. Do note that she has an upcoming visit with PCP on 07/25/23. Sent [employer] message to pt notifying of need to see and discuss vaccines with provider at that time. Nurse visit cancelled at this time. Hoa Fox LPN documented in this encounterProvidence Hospital03-22-2024 Miscellaneous Notes* Telephone Encounter - Yasmin Willams RN - 06/20/2023 11:27 AM EDT Patient returned call and given provider's message below and patient verbalized understanding. Greg Willams RN * Telephone Encounter - Melanie Lamar LPN - 06/20/2023 8:43 AM EDT Phoned patient and left message to return call and ask to speak to a nurse. * Telephone Encounter - Zachery Lehman MD - 06/20/2023 8:14 AM EDT Placed. * Telephone Encounter - Mattie Atwood - 06/19/2023 5:28 PM EDT Patient contacted us via my chart would like to have her lipid Panel Drawn. Could you please enter order and forward to a filling hauler. documented in this encounterProvidence Hospital09-22-2023 Discharge summary Author Bushra Wright [facility] December 20, 2022 9:11am Note Date/Time December 20, 2022 9:11am [facility] Physical Therapy [facility] [address] [place] [address] [address] [place] [address] / REHABILITATION SERVICES DISCHARGE SUMMARY MR#: [id number] Acct: [id number] Name: DINA BENITO Rep #: [id number] : 1965 57 From: Bushra Wright PT, Cert. MDT Referring Dr.: Dr. Ira Godwin MD Status: REG RCR Insurance: [employer] MEDICAID Patient Information Patient Information: DINA BENITO was seen in my office for initial evaluation on 10/04/22. The following Plan of Care was established for this patient: POC Established Initial Frequency: 1x/Week Initial Duration: 2-4 Months Anticipated Interventions Patient/Client Instruction: Educate patient on: Condition, Plan of Care and Risk Factors For the Purpose of:: To improve self management Therapeutic Exercise to Include: Strength training, Endurance training, Flexibilty training and Neuromotor development For the Purpose of:: To improve muscle performance and motor function, To increase tolerance to activity/condition/position and To improve ability of physical actions for home/community/work/leisure Last Seen Last Seen: This patient was last seen in our office 10/04/22. Pertinent comments regardingtheir Physical therapy will appear below: This patient has not returned to Physical Therapy and is appropriate to return to MD for further follow-up as needed. At this point I will be discontinuing this patient from physical therapy. I would be happy to see this patient again in the future if found appropriate by the physician. Thank you! Bushra Wright, PT, Cert MDT <Electronically signed by Bushra Wright PT, Cert. MDT> 12/20/22 0911 CC: Dr. Ira Godwin MD; Dr. Zachery Lehman MD ~ MATHIEU Signed [facility] Work Phone: [phone]) 401-685309-21-2023 History of Present illness Narrative* Kailash Adhikari - 12/19/2022 2:01 PM EDT Consultation requested by Dr. Lehman for an opinion regarding toenail deformity. My final recommendations will be communicated back to the requesting physician by way of shared Medical record or letterto requesting physician via US mail. Initial Podiatric Office Visit: Chief Complaint: This 57 year old female who presents with chief complaint:discolored toenails HPI Patient presents to clinic for evaluation of b/l feet Her largest complaint is thick toenails that are difficult to cut She denies diabetes She smokes 1.5 pack of cigarettes/day PAIN EVALUATION No data found in the last 1 encounters. No results found for: "HBA1C" PCP: Zachery Lehman MD PAST MEDICAL HISTORY Diagnosis Date Asthma COPD (chronic obstructive pulmonary disease) (HCC) Excessive or frequent menstruation Heavy periods Groin pain, left lower quadrant Groin pain, lower right quadrant Irregular menstrual cycle Irregular periods Restless leg Current Outpatient Medications Medication Sig albuterol HFA (PROVENTIL HFA, VENTOLIN HFA) 90 mcg/actuation inhaler Inhale 2 Puffs as instructed every 4 hours as needed for wheezing/shortness of breath. albuterol (PROVENTIL) 2.5 mg /3 mL (0.083 %) nebulizer solution Use 3 mL via nebulizer every 6 hours as needed. ibuprofen (MOTRIN) 600 mg tablet Take 1 tablet by mouth every 6 hours as needed for pain (with food). gabapentin (NEURONTIN) 400 mg capsule Take 1 capsule by mouth daily at bedtime for 90 days. ibuprofen (MOTRIN) 600 mg tablet Take 1 tablet by mouth every 6 hours as needed for pain. nystatin (MYCOSTATIN) 100,000 unit/mL suspension Take 5 mL by mouth four times daily. 1tsp swish inmouth for several minutes, then swallow (or expectorate) 4 times daily until gone. (Patient not taking: Reported on 12/19/2022) No current facility-administered medications for this visit. ALLERGIES Allergen Reactions Requip [Ropinirole] Vomiting PAST SURGICAL HISTORY Procedure Laterality Date ANES ESOPH THYRD LARYNX TRACH & LYMPH NECK 1YR DILATION & CURETTAGE DX&/THER NONOBSTETRIC Dilation & curettage Misc TUBAL LIGATION, 1993 FAMILY HISTORY Problem Relation Age of Onset Heart Mother pacemaker Hypertension Mother Heart Father Quad bypass Diabetes Sister No Known Problems Brother COPD Brother Asthma Brother No Known Problems Brother No Known Problems Brother No Known Problems Daughter No Known Problems Son Social History Tobacco Use Smoking status: Every Day Packs/day: 1.50 Years: 30.00 Additional pack years: 0.00 Total pack years: 45.00 Types: Cigarettes Smokeless tobacco: Never Vaping Use Vaping Use: Never used Substance Use Topics Alcohol use: No Drug use: No REVIEW OF SYSTEMS GENERAL: Negative for Malaise, significant weight loss, fever RESPIRATORY: Negative for cough, wheezing and shortness of breath CARDIOVASCULAR: Negative for chest pain, leg swelling and palpitations GI: Negative for abdominal discomfort, blood in stools or black stools and change in bowel habits : Negative for dysuria, frequency and incontinence MUSCULOSKELETAL: Negative for joint pain or swelling, back pain, and muscle pain. SKIN: Negative for lesions, rash, and itching. HEMATOLOGY/LYMPHOLOGY Negative for prolonged bleeding, bruising easily, and swollen nodes. ENDOCRINE: Negative for cold or heat intolerance, polyuria, polydipsia and goiter. NEURO: negative Physical Exam: Constitutional: Pt is a well developed 57 year old female who is alert, oriented and cooperative Eyes: Following during examination. No redness or drainage. Respiratory: RR normal and nonlabored. Even breathing. No evidence of distress or shortness of breath. Psychology: Patient is engaged during conversation. Normal affect and mood. Does not appear depressed or anxious during encounter. Vascular: Dorsalis pedis palpable b/l. Posterior tibial pulses nonpalpable b/l. Capillary Fill time < 5 seconds to digits 1-5 b/l Skin temperature warm to cool proximal to distal b/l Hair growth decreased to digits Neurological: intact light touch/epicritic sensation Vibratory sensation intact to hallux b/l intact protective sensation no significant neurological deficits Dermatological: B/l hallux toenail is thick, discolored, ingrowing, painful. Webspaces clean and dry 1-4 b/l. Skin appears well hydrated and supple. good color, texture, turgor. No open lesions present. No callosities present. Musculoskeletal/Orthopaedic: Patient has pain to palpation of b/l hallux toenail Radiographs:n/a ASSESSMENT: (B35.1) Onychomycosis (primary encounter diagnosis) (M79.675) Pain in toe of left foot (M79.674) Pain in toe of right foot (R09.89) Diminished pulses in lower extremity PLAN: A review of the patient's PMH and Podiatric physical exam was completed. We discussed the possible etiologies of discolored, dystrophic, and thickened nails including fungus, yeast, mold as well as in some instances, prior trauma, or mechanical causes such as repetitive microtrauma in shoe gear. Wediscussed topical medication for discolored toenails which has very low success but no major side effects. We discussed oral medication. Patient will need hepatic testing prior to use. Patient informed of risks associated with Lamisil. We discussed removal of toenails. Patient would like to proceedwith debridement Toenails 1-5 b/l debrided in length and thickness. Small bleed to b/l hallux. Band aide applied. . Kailash Adhikari DPM Podiatry [address] [place] [facility] [address] Dept: [phone] Dept * Jill Wilson LPN - 12/19/2022 1:46 PM EDT AMB ROOMING INTAKE FLOWSHEET DATA Patient presents with: Left Foot - Nail Fungus, New, nail care Right Foot - New, Nail Fungus, nail care Jill Wilson LPN documented in this encounterProvidence Hospital08-29-2023 Miscellaneous Notes* Telephone Encounter - Miguel Ángel Dennis RN - 11/26/2022 2:40 PM EDT Notified patient and transferred to [facility] to schedule appt. * Telephone Encounter - Zachery Lehman MD - 11/26/2022 2:29 PM EDT done * Telephone Encounter - Miguel Ángel Dennis RN - 11/26/2022 2:19 PM EDT Patient asking pcp to place a referral for her to see restaurant supervisor to have her toenails cut. Reports they are thick and long. documented in this encounterProvidence Hospital04-11-2023 Miscellaneous Notes* Telephone Encounter - Joon Marie RN - 07/09/2022 11:45 AM EDT Patient calls and notified of providers message and instructions. Patient laughs when recommended to stop smoking if she hasn't but patient didn't specify whether she was currently smoking. Joon Marie RN * Telephone Encounter - Jocelynn Vazquez Ma - 07/08/2022 5:05 PM EDT Left message for patient to return call. Jocelynn Vazquez Ma * Telephone Encounter - Miguel Ángel Plata PA-C - 07/08/2022 4:53 PM EDT Hopefully she is not smoking. Time to quit. The following approved medication requests have been transmitted electronically. Requested Prescriptions Signed Prescriptions Disp Refills doxycycline (VIBRA-TABS) 100 mg tablet 20 tablet 0 Sig: Take 1 tablet by mouth twice daily for 10 days. Miguel Ángel Plata PA-C * Telephone Encounter - Yasmin Willams RN - 07/08/2022 2:43 PM EDT Triage Protocol Recommended: PCP to advise. Reason for Disposition [1] Continuous (nonstop) coughing interferes with work or school AND [2] no improvement using coughtreatment per Care Advice Cough lasts > 3 weeks Answer Assessment - Initial Assessment Questions OTC: yes cough drops and cough syrup Cough day and night Lung screen No n/v/d Sinus pressure-chronic No wheezing or rattles No chest pain or back pain 1. ONSET: several weeks 2. SEVERITY: "How bad is the cough today?" *No Answer* 3. SPUTUM: no 4. HEMOPTYSIS: no 5. DIFFICULTY BREATHING: COPD-chronic cough NO SOB 6. FEVER: denies, no chills or sweats 7. CARDIAC HISTORY: "Do you have any history of heart disease?" (e.g., heart attack, congestive heart failure) *No Answer* 8. LUNG HISTORY: "Do you have any history of lung disease?" (e.g., pulmonary embolus, asthma, emphysema) *No Answer* 9. PE RISK FACTORS: "Do you have a history of blood clots?" (or: recent major surgery, recent prolonged travel, bedridden) *No Answer* 10. OTHER SYMPTOMS: "Do you have any other symptoms?" (e.g., runny nose, wheezing, chest pain) *No Answer* 11. : "Is there any chance you are ?" "When was your last menstrual period?" *No Answer* 12. TRAVEL: "Have you traveled out of the country in the last month?" (e.g., travel history, exposures) *No Answer* Answer Assessment - Initial Assessment Questions Patient calling with main complaint of non-productive cough > 3 weeks that "won't go away". Pt feels "it is getting worse". Requesting Kirill Plaat to send antibiotics and cough medicine to [facility]. 1. ONSET: > 3 weeks ago 2. SEVERITY: moderate-annoying, coughs day and night. No severe spells. 3. SPUTUM: none 4. HEMOPTYSIS: denies 5. DIFFICULTY BREATHING: States she has COPD and has chronic mild SOB with exertion. No SOB at rest 6. FEVER: Denies. Denies chills or sweats. 7. CARDIAC HISTORY: see record 8. LUNG HISTORY: see record 9. PE RISK FACTORS: denies 10. OTHER SYMPTOMS: -frequent dry cough DENIES: worsening SOB, SOB at rest, chest pain, back pain, wheezing, fever, chills, headache, earache, body aches, sore throat, nausea, vomiting, or diarrhea -has tried OTC cough syrups and cough drops with little to no effect 11. : no 12. TRAVEL: no Protocols used: Cough - Acute Htq-Bljtrxdpzv-ZXMMT-AH, Cough - Jptnvcq-TOPNF-OW documented in this encounterProvidence Hospital03-09-2023 Miscellaneous Notes* Telephone Encounter - Florinda Mejía APRN.CNP - 06/06/2022 4:24 PM EST Patient called back. She just had her ultrasound done an hour ago and she actually just went to make sure that she was called with ultrasound results and not just notified per MyChart. Florinda Mejía APRN.CNP * Telephone Encounter - Florinda Mejía APRN.CNP - 06/06/2022 4:17 PM EST Dina called in to talk about US results and message left for me to return her call. LMTCB to discuss results. I will speak to the pt directly. If I am unavailable, please obtain a couple of times that she would be available for a call back. Florinda Mejía APRN.CNP documented in this encounterProvidence Hospital02-26-2023 Instructions* Patient Instructions* Evita Aviles APRN.CNP - 05/26/2022 3:22 PM EST ASSESSMENT/PLAN: 1. Sore throat - ICD9: 462, ICD10: J02.9 - suspect viral vs thrush - Alere Strep Test negative, no culture pending - Discussed supportive care treatment with fluids, rest and analgesia. - The patient may also use warm salt water gargles, throat lozenges and/or OTC throat spray as needed. - STREP A MOLECULAR (POC) - NYSTATIN 100,000 UNIT/ML ORAL SUSPENSION - Follow-up with your PCP in 3-5 days if symptoms have not improved or sooner if symptoms worsen - Discussed red flags and need for immediate medical evaluation if any occur. - Discussed supportive care treatment with fluids, rest and analgesia. - Discussed expected course of illness Evita Aviles APRN.CNP documented in this encounterProvidence Hospital02-26-2023 History of Present illness Narrative* Evita Aviles APRN.CNP - 05/26/2022 3:19 PM EST Images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 July 08, 2024 End: July 08, 2024 Dr. Geeta Vargas MD Attending Provider Active Start: July 08, 2024 End: July 08, 2024 Dr. Geeta Vargas MD Referring Provider Active Start: July 08, 2024 End: July 08, 2024 Spout Liner Helper Relationship Specialty Start Date End Date Zachery Lehman MD [address] [place], [place] [address] PCP - General Family Medicine 07/18/14 Rody Oslen, LEVEL VIAL SETTER.DIPPER OPERATOR [address] [place], [place] [address] Supervisor [employer] [facility] 03/08/24 Za Riley, LEVEL VIAL SETTER.DIPPER OPERATOR [address] [place], [place] [address] [facility] 03/08/24 Spout Liner Helper Relationship Specialty Start Date End Date Zachery Lehman MD [address] [place] [address] PCP - General Family Medicine 07/18/14 Rody Olsen, LEVEL VIAL SETTER.DIPPER OPERATOR [address] [place] [address] [facility]visor [facility] 03/08/24 Za Riley LEVEL VIAL SETTER.DIPPER OPERATOR [address] [place] [address] [facility] 03/08/24 Spout Liner Helper Relationship Specialty Start Date End Date Zachery Lehman MD [address] [place] [address] PCP - General Family Medicine 07/18/14 Rody Olsen, LEVEL VIAL SETTER.DIPPER OPERATOR [address] [place] [address] [facility]visor [facility] 03/08/24 Za Riley, LEVEL VIAL SETTER.DIPPER OPERATOR [address] [place] [address] [facility] 03/08/24 Team Status: Active Member Role/Relationship Status Dates Dr. Zachery Lehman MD Primary care physician Active Team Status: Inactive Member Role/Relationship Status Dates Dr. Zachery Lehman MD Primary care physician Active Start: September 28, 2024 Dr. Ira Godwin MD Attending physician Active Start: September 28, 2024 Team Status: Inactive Member Role/Relationship Status Dates Dr. Zachery Lehman MD Primary care physician Active Start: December 17, 2024 End: December 17, 2024 Dr. Zachery Lehman MD Referring Provider Active Start: December 17, 2024 End: December 17, 2024 Dr. Ira Godwin MD Attending physician Active Start: December 17, 2024 End: December 17, 2024 Reason for Visit (unrecogniz ed section and content) Reason Comments Appointment Needs Rescheduled Reason Comments Yearly Exam Reason Comments Physical Therapy PT Discharge Specialty Diagnoses / Procedures Referred By Contac t Referred To Contact [facility] Diagnoses Cervical sprain, sequela Lumbar sprain, subsequent encounter Procedures CONSULT TO PHYSICAL THERAPY PHYSICAL THERAPY EVALUATION HIGH COMPLEX 45 MINS Miguel Ángel Plata PA-C [address] [place] [address] [facility] [place] [address] [place] [address] Referral ID Status Reason Start Date Expiration Date V isits Requested Visits Authorized [id number] Authorized 03/31/2021 03/30/2022 99 99 Reason Comments Follow Up Reason Comments Faxed to [facility] Reason Comments Well Woman Specialty Diagnoses / Procedures Referred By Contac t Referred To Contact Gynecology Diagnoses Cervical disc disorder with radiculopathy Abdominal bloating Procedures CONSULT TO GYNECOLOGY OFFICE/OUTPATIENT [facility] 60-74 MINUTES Miguel Ángel Plata PA-C [address] [place] [address] Referral ID Status Reason Start Date Expiration Date Visits Requested Visits Authorized [id number] Pending Review PCP Requested Referral Auto-Generate d Referral 04/30/2022 04/30/2023 1 1 Reason Comments Sore Throat X2 days Reason Comments Results 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 Ultrasound Reason Comments dry cough Reason Comments Podiatry referral Reason Comments Nail Fungus New nail care Specialty Diagnoses / Procedures Referred By Contac t Referred To Contact Podiatry Diagnoses Onychomycosis Procedures CONSULT TO PODIATRY OFFICE/OUTPATIENT [facility] 60-74 MINUTES Zachery Lehman MD [address] [place] [address] Referral ID Status Reason Start Date Expiration Date Visits Requested Visits Authorized [id number] Pending Review PCP Requested Referral 11/26/2022 11/26/2023 1 1 Reason Comments Lab Orders Reason Comments Physical Needs to be a wellne ss exam Reason Comments Patient Update Reason Comments Consult Reason Comments Cough Cough, [facility] x 1 week Reason Comments Patient Update Appointment Reason Comments Cough Headache and sore th roat x3 weeks Reason Comments Dr Vargas wants to talk to CLERK GENERAL Reason Comments Medicare Wellness Exam INFORMATION SOURCE (unrecogn ized section and content) DATE CREATED AUTHOR 08/30/2023 [facility] DATE CREATED AUTHOR AUTHOR'S ORGANIZ ATION 05/22/2024 [facility] DATE CREATED AUTHOR AUTHOR'S ORGANIZ ATION 08/19/2024 [facility] DATE CREATED AUTHOR AUTHOR'S ORGANIZ ATION 02/02/2025 [facility] FOR RECORDS PERTAINING TO PATIENTS WHO ARE OR HAVE BEEN ENROLLED IN A CHEMICAL DEPENDENCY/SUBSTANCEABUSE PROGRAM, SOME INFORMATION MAY BE OMITTED. This clinical summary was aggregated from multiple sources. Caution should be exercised in using it in the provision of clinical care. This summary normalizes information from multiple sources, and as a consequence, information in this document may materially change the coding, format and clinical context of patient data. In addition, data may be omitted in some cases. CLINICAL DECISIONS SHOULD BE BASED ON THE PRIMARY CLINICAL RECORDS. [employer] provides no warranty or guarantee of the accuracy or completeness of information in this document.
== END | disposition home or self-care (01) ==
LOC: CT 18:34
PROVIDERS: PCP Family Medicine; Referring Provider Internal Medicine Pulmonary Disease; Visit Provider Internal Medicine Pulmonary Disease
DX: R91.1 Solitary pulmonary nodule (principal)
CPT/HCPCS: 71250